=== PATIENT | female | born 1995 | race Caucasian/White ===

== ENCOUNTER → 2019-01-19 17:04 | Outpatient (CLI) | payer BC, SELFPAY | PROVIDERS: Visit Provider Nurse Practitioner Family | DX: N39.0 Urinary tract infection, site not specified (principal) | CPT/HCPCS: 87086; 87088; 87186 ==

== ENCOUNTER 2020-01-08 09:57 | Emergency (ER) | payer BC, SELFPAY ==
[2020-01-08 10:18] VITALS: BP 136/83; PULSE 97; RESP 18; TEMP 36.7; O2SAT 96; BMI 38.0
--- NOTE | 2020-01-08 11:05 | HMH.EDUTC ---
[facility] [place] Impression: Viral syndrome Disposition: Home, Self-Care Condition on Discharge: Good Instructions: DI for Nausea -- Adult, Nausea and Vomiting-Adult, DI for Fatigue Additional Instructions: ? Avoid fruit juices, as these do not replace minerals and can actually increase diarrhea. ? Children and adults can use sports drinks to replenish electrolytes. Younger children and infants should use products formulated for children, like oral rehydration solutions. ? Eat food in small amounts and let your stomach recover. ? Get lots of rest. You may feel tired or weak. ? No greasy or fried foods for the next 24-48 hours BRAT diet Bananas Rice Apples and [employer] ? Make sure to drink plenty of liquids ? Return if needed ? Straight to ER if any life threatening symptoms ? Zofran as prescribed ? Follow up with family doctor in the next 48-72 hours if no improvement or any worsening of symptoms You was tested for today for COVID19 your test result should be back later this evening, you may call back later this evening to see if your test results are back and the result You was given a handout with instructions for Self Quarantine and Self isolation for while you wait on test results and what to do if they are positive Prescriptions: Ondansetron [Zofran 4mg ODT] 4 mg PO TIDP PRN #10 tab PRN Reason: Nausea Transmission Status: Pending to [facility] Referrals: Regina Sorensen [Primary Care Provider] - As needed Forms: Work/School Release Time of Disposition: 11:11 Medical Decision Making - Freddy Inquiry Pt receiving controlled substance: No Freddy was queried for this patient: No Vital Signs: 01/08/20 10:18 Temperature 98.1 F Temperature Source Oral Pulse Rate [Radial] 97 H Respiratory Rate 18 Blood Pressure [Right Arm] 136/83 Blood Pressure Mean [Right Arm] 100 Blood Pressure Source [Right Arm] Automatic Cuff Blood Pressure Position [Right Arm] Sitting 02 Sat by Pulse Oximetry 96 Oxygen Delivery Method Room Air - Lab Data Lab results reviewed: Yes: I reviewed the patient's lab results. Orders (Tests/Meds): ORDERS Category Date Time Status Covid-19 Nasal PCR ([facility]) Routine Lab 01/08/20 10:59 [place] [facility] [place] - General Stated complaint: headache,weak Time Seen by Provider: 01/08/20 10:40 Mode of Arrival: Ambulatory Source of Information: Patient Limitations: No Limitations Description of Symptoms (Recalled from Triage Doc. by RN): threw up yesterday, has been nauseous, weak, headache, loss of appetite. 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: No Currently employed?: No Childcare worker?: No Do you have indoor plumbing?: Yes Do you have electricity?: Yes Attestation statement:: This patient has been screened for Hepatitis A risk factors. I have reviewed the patient's past
[2020-01-08 11:28] VITALS: BP 136/83; PULSE 97; RESP 18; TEMP 36.7; O2SAT 96
[2020-01-08 11:35] LABS: UTC Pregnancy Test, Urine Negative (Negative)
== END 2020-01-08 11:28 | disposition home or self-care (01) ==
PROVIDERS: Emergency Provider Nurse Practitioner; PCP Family Medicine
DX: B34.9 Viral infection, unspecified (principal); Z20.828 Contact with and (suspected) exposure to other viral communicable diseases
CPT/HCPCS: 81025; 99202; U0003

== ENCOUNTER 2020-02-12 09:27 | Emergency (ER) | payer BC, SELFPAY ==
[2020-02-12 09:43] VITALS: BP 112/87; PULSE 121; RESP 19; TEMP 37.1; O2SAT 98; BMI 37.2
--- NOTE | 2020-02-12 09:49 | HMH.EDUTC ---
[facility] [place]: Strep throat Disposition: Home, Self-Care Condition on Discharge: Good Instructions: Strep Throat, DI for Strep Throat Additional Instructions: Drink plenty of fluids. Take tylenol or ibuprofen for pain or fever. Take the medications as directed. Follow up with your regular doctor. GO TO THE ER FOR ANY WORSENING SYMPTOMS Throw your tooth brush away and get a new one. Prescriptions: Ondansetron [Zofran 4mg ODT] 4 mg PO Q8HP PRN #12 tab.rapdis PRN Reason: Nausea Transmission Status: Received by [facility] Amoxicillin/Potassium Clav [Augmentin 875-125 Tablet] 1 tab PO Q12H 10 Days #20 tab Transmission Status: Received by [facility] predniSONE [Deltasone 10mg tablet] 10 mg PO BID 3 Days #6 tab Transmission Status: Received by [facility] Referrals: Regina Sorensen [Primary Care Provider] - Forms: Work/School Release Time of Disposition: 10:00 Medical Decision Making - Medical Records Medical records reviewed: No: I reviewed the patient's medical records. - Freddy Inquiry Pt receiving controlled substance: No Vital Signs: 02/12/20 09:43 02/12/20 10:05 Temperature 98.8 F 98.8 F Temperature Source Oral Oral Pulse Rate 121 H Pulse Rate [Radial] 121 H Respiratory Rate 19 19 Blood Pressure 112/87 Blood Pressure [Right Arm] 112/87 Blood Pressure Mean [Right Arm] 95 Blood Pressure Source Automatic Cuff Blood Pressure Source [Right Arm] Automatic Cuff Blood Pressure Position Sitting Blood Pressure Position [Right Arm] Sitting 02 Sat by Pulse Oximetry 98 Oxygen Delivery Method Room Air Room Air - Lab Data Lab results reviewed: Yes: I reviewed the patient's lab results. Lab Results 02/12/20 09:43: Influenza Type A Ag Negative, Influenza Type B Ag Negative 02/12/20 09:43: Strep Scn Rapid [facility] Positive A Orders (Tests/Meds): ORDERS Category Date Time Status Covid-19 Nasal PCR Sendout Kiran Routine Lab 02/12/20 09:40 Received [facility] [place] - General Stated complaint: covid test Time Seen by Provider: 02/12/20 09:49 Mode of Arrival: Ambulatory Source of Information: Patient Limitations: No Limitations Description of Symptoms (Recalled from Triage Doc. by RN): cough, sore throat, body aches, nausea x 2 days HEENT Symptoms (Recalled from RN notes): Yes Resp Symptoms (Recalled from RN notes): No Skin Symptoms (Recalled from RN notes): No MS Symptoms (Recalled from RN notes): No Functional Status (Recalled from RN notes): wnl - History of Present Illness Provider Complaint: She c/o sore throat and fever since yesterday. She denies cough and chest congestion. - Related Data Previous Rx's Medication Instructions Recorded Amoxicillin [Amoxicillin 500mg 500 mg PO TID #30 cap 06/06/19 Cap] Ondansetron [Zofran 4mg ODT] 4 mg PO TIDP PRN #10 tab 01/08/20 Amoxicillin/Potassium Clav 1 tab PO Q12H 10 Days #20 tab 02/12/20 [Augmentin 875-125 Tablet] Ondansetron [Zofran 4mg ODT] 4 mg PO Q8HP PRN #12 tab.rapdis 02/12/20 predniSONE [Deltasone 10mg tablet] 10 mg PO BID 3 Days #6 tab 02/12/20 Allergies Allergy/AdvReac Type Severity Reaction Status Date / Time No Known Allergies Allergy Verified 01/23/19 23:05 - Worker's Comp Is this a Worker's Comp case?: No [facility] History - Hepatitis A Screen Drug use history?: No High risk sexual behaviors?: No History of sexually transmitted infection?: No Currently employed?: No Childcare worker?: No Do you have indoor plumbing?: Yes Do you have electricity?: Yes Attestation statement:: This patient has been screened for Hepatitis A risk factors. I have reviewed the patient's past medical history: Yes Medical History: Denies:: Diabetes Mellitus Type 1, Diabetes Mellitus Type 2 Other Medical History: Reports: Other Other Surgeries: Yes: No Previous Surgery Amputation: No Comment: wisdom teeth extraction.
[2020-02-12 09:54] LABS: UTC Strep Screen (Rapid) Positive (Negative)
[2020-02-12 09:55] LABS: UTC Influenza A Antigen Negative (Negative); UTC Influenza B Antigen Negative (Negative)
[2020-02-12 10:05] VITALS: BP 112/87; PULSE 121; RESP 19; TEMP 37.1; O2SAT 98
[2020-02-12 21:25] LABS: Covid-19 Nasal PCR Sendout Lex Not Detected
== END 2020-02-12 10:06 | disposition home or self-care (01) ==
PROVIDERS: Emergency Provider Nurse Practitioner Family; PCP Family Medicine
DX: Z20.828 Contact with and (suspected) exposure to other viral communicable diseases (principal); J02.0 Streptococcal pharyngitis
CPT/HCPCS: 87804; 87880; 99202; U0004

== ENCOUNTER 2020-10-22 12:53 | Emergency (ER) | payer BC, SELFPAY ==
[2020-10-22 12:55] VITALS: BP 136/79; PULSE 112; RESP 20; TEMP 37.1; O2SAT 97; BMI 39.1
--- NOTE | 2020-10-22 13:41 | HMH.EDUTC ---
[facility] [place] Clinical Impression: Viral syndrome Disposition: Home, Self-Care Condition on Discharge: Good Instructions: DI for Viral Syndrome Additional Instructions: Drink plenty of fluids. Take tylenol for pain or fever. Return if you begin to have difficulty breathing. Follow up with your regular doctor. GO TO THE ER FOR ANY WORSENING SYMPTOMS Prescriptions: Ondansetron [Zofran 4mg ODT] 4 mg PO Q8HP PRN #12 tab.rapdis PRN Reason: Nausea Transmission Status: Received by [facility] Referrals: Regina Sorensen [Primary Care Provider] - Forms: Work/School Release Time of Disposition: 13:56 Medical Decision Making - Medical Records Medical records reviewed: No: I reviewed the patient's medical records. - Freddy Inquiry Pt receiving controlled substance: No Vital Signs: 10/22/20 12:55 10/22/20 13:54 Temperature 98.7 F 98.7 F Temperature Source Oral Pulse Rate 112 H Pulse Rate [Right Brachial] 112 H Respiratory Rate 20 20 Blood Pressure 136/79 Blood Pressure [Right Arm] 136/79 Blood Pressure Mean [Right Arm] 98 Blood Pressure Source [Right Arm] Automatic Cuff Blood Pressure Position [Right Arm] Sitting 02 Sat by Pulse Oximetry 97 Oxygen Delivery Method Room Air - Lab Data Lab Results 10/22/20 13:49: Strep Scn Rapid Clinic Negative Orders (Tests/Meds): ORDERS Category Date Time Status Strep Screen Confirmation Stat Micro 10/22/20 13:49 Received [facility] [place] - General Stated complaint: covid test Time Seen by Provider: 10/22/20 13:41 Mode of Arrival: Ambulatory Source of Information: Patient Limitations: No Limitations Description of Symptoms (Recalled from Triage Doc. by RN): PATIENT C/O COUGH, HEADACHE, AND NASAL CONGESTION THAT STARTED TODAY. HER SISTER RECENTLY TESTED POSITIVE FOR COVID HEENT Symptoms (Recalled from RN notes): Yes Resp Symptoms (Recalled from RN notes): Yes Skin Symptoms (Recalled from RN notes): No MS Symptoms (Recalled from RN notes): No Functional Status (Recalled from RN notes): WNL - History of Present Illness Provider Complaint: She states that since this morning she has felt bad,started having sinus congestion and felt achy all over. Her sister was diagnosed with covid-19 yeaterday and she has been around her sister a lot recently. - Related Data Previous Rx's Medication Instructions Recorded Ondansetron [Zofran 4mg ODT] 4 mg PO Q8HP PRN #12 tab.rapdis 10/22/20 Allergies Allergy/AdvReac Type Severity Reaction Status Date / Time No Known Allergies Allergy Verified 01/23/19 23:05 - Worker's Comp Is this a Worker's Comp case?: No [facility] History - Hepatitis A Screen Drug use history?: No High risk sexual behaviors?: No History of sexually transmitted infection?: No Currently employed?: No Childcare worker?: No Do you have indoor plumbing?: Yes Do you have electricity?: Yes Attestation statement:: This patient has been screened for Hepatitis A risk factors. I have reviewed the patient's past medical history: Yes Medical History: Denies:: Diabetes Mellitus Type 1, Diabetes Mellitus Type 2 Other Medical History: Reports: Other Other Surgeries: Yes: No Previous Surgery Amputation: No Comment: wisdom teeth extraction. IUD placed 10/2017 - Social History Smoking Status: Never smoker Alcohol Intake: never Alcohol Intake Frequency:: holidays/special occasions only Substance Use Type: denies use Occupational Status: other Housing: house Household Members: spouse ROS Obtained: Yes All systems reviewed & no additional complaints - Constitutional Constitutional: Reports system reviewed and no additional complaints, except as docu - Eyes Eyes: Reports system reviewed and no additional complaints, except as docu - ENT Ears, Nose, Mouth, and Throat: Reports system reviewed and no additional complaints, except as docu - Cardiovascular Cardiovascular: Reports system amber
[2020-10-22 13:54] VITALS: BP 136/79; PULSE 112; RESP 20; TEMP 37.1; O2SAT 97
[2020-10-22 14:00] LABS: UTC Strep Screen (Rapid) Negative (Negative)
== END 2020-10-22 14:08 | disposition home or self-care (01) ==
PROVIDERS: Emergency Provider Nurse Practitioner Family; PCP Family Medicine
DX: Z20.822 Contact with and (suspected) exposure to COVID-19 (principal); B34.9 Viral infection, unspecified
CPT/HCPCS: 87880; 99203; G0463; U0003

== ENCOUNTER → 2021-02-23 12:11 | Outpatient (CLI) | payer BC, SELFPAY | PROVIDERS: PCP Family Medicine; Visit Provider Nurse Practitioner | DX: U07.1 COVID-19 (principal) | CPT/HCPCS: C9803; U0003; U0005 ==

== ENCOUNTER 2021-03-15 09:15 | Emergency (ER) | payer BC, SELFPAY ==
[2021-03-15 10:10] VITALS: BP 118/66; PULSE 115; RESP 21; TEMP 37.7; O2SAT 97; BMI 39.9
--- NOTE | 2021-03-15 10:33 | HMH.EDUTC ---
[facility] [place] Impression: URI (upper respiratory infection) Qualifiers: URI type: unspecified URI Qualified Code(s): J06.9 - Acute upper respiratory infection, unspecified Disposition: Home, Self-Care Condition on Discharge: Good Instructions: Sore Throat, DI for Sinusitis, DI for Cough -- Adult Additional Instructions: *Monitor Temp, Over the counter Motrin or Tylenol as directed/as needed Tylenol every 4 hours and Motrin every 6 hours (as long as your family doctor has told you that you can take it) for fever or pain. and straight to ER if unable to lower temp less than 101.0 after medication given *Warm salt water gargles may help to soothe the throat *Throat Lozenges *Warm fluids like tea with honey may help to soothe the throat *Sleep elevated *Humidifier/Vaporizer *Flonase 2 sprays in each nostril daily but be aware that it may take 2-3 days before you notice improvement *Bromfed may cause drowsiness. Know how it effects you (your child) before driving, caring for small child, or sending your child to school. Not other antihistamines/allergy medications while taking bromfed Your throat swab was sent for culture. Those results are typically sent to your primary care. Be sure to follow up in 2-3 days with your family doctor/primary care physician if no improvement so they can review those result and treat if necessary. If you don?t have a primary care doctor, I recommend you get one but in the mean time, you will have to return to a walk in clinic Follow up IMMEDIATELY for new or worsening symptoms or no Noticeable improvement over the next 48-72 hours. 911 for difficulty breathing or swallowing Prescriptions: Brompheniramine/Pseudoephed/Dm [Bromfed Dm Cough Syrup] 5 - 10 ml PO Q46H PRN #200 ml PRN Reason: Cough Transmission Status: Pending to [facility] methylPREDNISolone [Medrol 4mg tab] 4 mg PO DIRECTED #21 tab Transmission Status: Pending to [facility] Azithromycin [Z-Casey 250mg Tab] 250 mg PO DIRECTED #6 tab Transmission Status: Pending to [facility] Referrals: Regina Sorensen [Primary Care Provider] - As needed Forms: Work/School Release Medical Decision Making - Freddy Inquiry Pt receiving controlled substance: No Freddy was queried for this patient: No Vital Signs: 03/15/21 10:10 Temperature 99.8 F H Temperature Source Oral Pulse Rate [Right Brachial] 115 H Respiratory Rate 21 Blood Pressure [Right Arm] 118/66 Blood Pressure Mean [Right Arm] 83 Blood Pressure Source [Right Arm] Automatic Cuff Blood Pressure Position [Right Arm] Sitting 02 Sat by Pulse Oximetry 97 Oxygen Delivery Method Room Air - Lab Data Lab results reviewed: Yes: I reviewed the patient's lab results. Lab Results 03/15/21 10:32: Influenza Type A Ag Negative, Influenza Type B Ag Negative 03/15/21 10:32: Strep Scn Rapid Clinic Negative Orders (Tests/Meds): ORDERS Category Date Time Status Strep Screen Confirmation Stat Micro 03/15/21 10:32 [place] [facility] [place] - General Stated complaint: possible strep Time Seen by Provider: 03/15/21 10:33 Mode of Arrival: Ambulatory Source of Information: Patient Limitations: No Limitations Description of Symptoms (Recalled from Triage Doc. by RN): PATIENT C/O SORE THROAT, FEVER, CHILLS, HEADACHE, COUGH, SNEEZING AND CONGESTION X 2 DAYS HEENT Symptoms (Recalled from RN notes): Yes Resp Symptoms (Recalled from RN notes): Yes Skin Symptoms (Recalled from RN notes): No MS Symptoms (Recalled from RN notes): No Functional Status (Recalled from RN notes): WNL - History of Present Illness Provider Complaint: Patient states that she has been having sore throat, cough, Sinus pain and pressure with drianage in the back of her throat and pressure behind her eyes with fever and chills States that she had COVID in the begining of the month and thinks she may have strep throat or sinus infection so she wanted
[2021-03-15 10:48] LABS: UTC Influenza A Antigen Negative (Negative); UTC Strep Screen (Rapid) Negative (Negative)
[2021-03-15 10:49] LABS: UTC Influenza B Antigen Negative (Negative)
[2021-03-15 10:55] LABS: UTC Pregnancy Test, Urine Negative (Negative)
[2021-03-15 11:00] VITALS: BP 118/66; PULSE 115; RESP 21; TEMP 37.7; O2SAT 97
== END 2021-03-15 11:04 | disposition home or self-care (01) ==
PROVIDERS: Emergency Provider Nurse Practitioner; PCP Family Medicine
DX: J06.9 Acute upper respiratory infection, unspecified (principal)
CPT/HCPCS: 81025; 87804; 87880; 99203; G0463

== ENCOUNTER 2022-01-31 08:40 | Emergency (ER) | payer BC, SELFPAY ==
[2022-01-31 10:43] VITALS: BP 158/93; PULSE 94; RESP 18; TEMP 36.9; O2SAT 98; BMI 40.7
--- NOTE | 2022-01-31 10:56 | EXP.UTC ---
Discharge Plan Disposition Patient Disposition: Left Against Medical Advice Condition: Good Prescriptions Prescriptions: No Action azithromycin 250 MG tablet 250 mg PO DIRECTED Qty: 6 0RF Rx Instructions: Take two (2) tablets on day #1, then one (1) tablet day #2 thru #5 methylprednisolone 4 MG tablet 4 mg PO DIRECTED Qty: 21 0RF Rx Instructions: Take as directed on package instructions dagztpudwvziurq-rnmppogxx-YO 118 ML syrup 5 - 10 ml PO Q46H PRN (Reason: Cough) Qty: 200 0RF Referrals Follow up/Referrals: Provider,Referral, MD [Primary Care Provider] - See instructions Activity Restrictions/Add. Instructions Additional Instructions/Restrictions: Make sure to go straight to [facility] as you advised you would in the [facility] for further evaluation Return if needed Clinical Impressions Clinical Impression: Chest discomfort Discharge ED Provider: Lucía Joyce [facility] [place] HPI General Stated complaint: Congestion,Cough Mode of Arrival: Ambulatory Source of Information: Patient Limitations: No Limitations Time Seen by Provider: 01/31/22 10:56 Description of Symptoms (Recalled from Triage Doc. by RN): pt comes in with c/o cough, pain with coughing. HEENT Symptoms (Recalled from RN notes): Yes Resp Symptoms (Recalled from RN notes): Yes Skin Symptoms (Recalled from RN notes): No MS Symptoms (Recalled from RN notes): No Functional Status (Recalled from RN notes): n/a History of Present Illness Provider Complaint: Patient states that she has been sick for over a week State that she has had a cough and at times she has had pain in her chest area with cough States that last night she started having tight feeling in left side of her chest States that pain is consistent but still having sharp worsening of pain with cough or deep breath but pain in her chest area remains constant Denies feeling of palpatations Denies worsening of pain with movement Related Data Previous Rx's Medication Instructions Recorded azithromycin 250 mg tablet 250 mg PO DIRECTED #6 tabs 03/15/21 spmjhwmdzctpngx-nrpulplohsqfbmu-UC 5 - 10 ml PO Q46H PRN Cough #200 mL 03/15/21 2 mg-30 mg-10 mg/5 mL oral syrup methylprednisolone 4 mg tablet 4 mg PO DIRECTED #21 tabs 03/15/21 Allergies Allergy/AdvReac Type Severity Reaction Status Date / Time No Known Allergies Allergy Verified 01/31/22 10:49 Worker's Comp Is this a Worker's Comp case?: No PFSH PFSH Social History Smoking Status: Never smoker alcohol intake: current substance use type: denies use current occupational status: other Travel in the last 8 weeks: None household members: spouse housing: house ROS Obtained: Yes All systems reviewed & no additional complaints except as documented and Yes Systems reviewed as appropriate & no additional complaints except as documented Constitutional Constitutional: Reports system reviewed and no additional complaints, except as documented and Reports as per HPI Eyes Eyes: Reports system reviewed and no additional complaints, except as documented and Reports as per HPI ENT Ears, Nose, Mouth, and Throat: Reports system reviewed and no additional complaints, except as documented and Reports as per HPI Cardiovascular Cardiovascular: Reports system reviewed and no additional complaints, except as documented, Reports as per HPI and Reports chest pain (reports consistent tightness like pain in chest sharp pain with cough ) Respiratory Respiratory: Reports system reviewed and no additional complaints, except as documented, Reports as per HPI, Denies shortness of breath, Denies chest congestion, Reports cough, Reports pain on inspiration (sharp pain different from achy/tight pain she is having in chest) and Reports pain with cough (sharp with cough Different then achy like pain she is having in chest) Gastrointestinal Gastrointestingal: Reports system reviewed an
[2022-01-31 10:58] LABS: UTC Influenza A Antigen Negative (Negative)
[2022-01-31 10:59] LABS: UTC Influenza B Antigen Negative (Negative)
--- NOTE | 2022-01-31 11:24 | ECG_ITS ---
APPROVED REPORT Exam: Resting ECG HR:87 bpm ECG Measurements Heart Rate 87 AXES SC 145 P 66 QRSd 81 QRS 66 QT 352 T 14 QTc 396 Conclusion SINUS RHYTHM NONSPECIFIC T-WAVE ABNORMALITY BORDERLINE ECG INTERPRETATION BASED ON A DEFAULT AGE OF 39 YEARS UNCONFIRMED REPORT Electronically signed by : Edouard Gan MD 01/31/2022 21:10:10
[2022-01-31 11:39] VITALS: BP 158/93; PULSE 94; RESP 18; TEMP 36.9
== END 2022-01-31 11:40 | disposition left against medical advice (07) ==
PROVIDERS: Emergency Provider Nurse Practitioner
DX: R07.89 Other chest pain (principal); R05.9 Cough, unspecified; Z79.52 Long term (current) use of systemic steroids
CPT/HCPCS: 87804; 93005; 99213; G0463

== ENCOUNTER 2022-06-16 10:34 | Emergency (ER) | payer BC, SELFPAY ==
[2022-06-16 10:53] VITALS: BP 143/84; PULSE 84; RESP 16; TEMP 37.5; O2SAT 98; BMI 41.1
[2022-06-16 10:54] LABS: UTC Strep Screen (Rapid) Negative (Negative)
--- NOTE | 2022-06-16 10:54 | EXP.UTC ---
Discharge Plan Disposition Patient Disposition: Home, Self-Care Condition: Good Prescriptions Prescriptions: New amoxicillin [amoxicillin] 500 mg tablet 500 mg PO TID 10 Days Qty: 30 0RF methylprednisolone 4 mg Tablets,Dose Pack 4 mg PO DIRECTED Qty: 21 0RF mgcwjfmzocounwa-exqupizgx-YE [Bromfed DM] 2-30-10 mg/5 mL Syrup 5 ml PO Q6H PRN (Reason: Cough) Qty: 240 0RF No Action azithromycin 250 MG tablet 250 mg PO DIRECTED Qty: 6 0RF Rx Instructions: Take two (2) tablets on day #1, then one (1) tablet day #2 thru #5 methylprednisolone 4 MG tablet 4 mg PO DIRECTED Qty: 21 0RF Rx Instructions: Take as directed on package instructions rxozqpdujaoieak-rkfsczxft-FA 118 ML syrup 5 - 10 ml PO Q46H PRN (Reason: Cough) Qty: 200 0RF Referrals Follow up/Referrals: Regina Sorensen [Primary Care Provider] - See instructions Activity Restrictions/Add. Instructions Additional Instructions/Restrictions: Drink plenty of fluids. Take tylenol or ibuprofen for pain or fever. Take the medications as directed. Follow up with your regular doctor. GO TO THE ER FOR ANY WORSENING SYMPTOMS Throw your tooth brush away and get a new one. Clinical Impressions Clinical Impression: Strep throat Stand Alone Forms Stand Alone Forms: Work/School Release Instructions Patient Instructions: Strep Throat, DI for Strep Throat Discharge ED Provider: Darien Arriola [facility] General Stated complaint: Sore throat Time Seen by Provider: 06/16/22 10:54 History of Present Illness Provider Complaint: She states that for the past 2 days she has had worsening sore throat, chills and body aches. Related Data Previous Rx's Medication Instructions Recorded azithromycin 250 mg tablet 250 mg PO DIRECTED #6 tabs 03/15/21 ffmjvmcualrqlot-shmnbzchumrmwsr-XP 5 - 10 ml PO Q46H PRN Cough #200 mL 03/15/21 2 mg-30 mg-10 mg/5 mL oral syrup methylprednisolone 4 mg tablet 4 mg PO DIRECTED #21 tabs 03/15/21 amoxicillin 500 mg tablet 500 mg PO TID 10 days #30 tabs 06/16/22 lylieleqguwnsuz-gavmonrkggcnjnf-HD 5 ml PO Q6H PRN Cough #240 mL 06/16/22 2 mg-30 mg-10 mg/5 mL oral syrup (Bromfed DM) methylprednisolone 4 mg tablets in 4 mg PO DIRECTED #21 tabs 06/16/22 a dose pack Allergies Allergy/AdvReac Type Severity Reaction Status Date / Time No Known Allergies Allergy Verified 06/16/22 10:56 PFSH [facility] Disclaimer: The information contained in this section may have been updated after the patient was seen, as this information can be updated by other users. Social History Smoking Status: Never smoker alcohol intake: current substance use type: denies use current occupational status: other Travel in the last 8 weeks: None household members: spouse housing: house ROS Obtained: Yes All systems reviewed & no additional complaints except as documented Constitutional Constitutional: Reports chills and Reports fever(s) Eyes Eyes: Denies eye discharge ENT Ears, Nose, Mouth, and Throat: Reports as per HPI Cardiovascular Cardiovascular: Denies chest pain Respiratory Respiratory: Denies chest congestion and Reports cough Gastrointestinal Gastrointestingal: Reports nausea; Denies abdominal pain, constipation, cramping, diarrhea or vomiting Musculoskeletal Musculoskeletal: Denies arthralgias Integumentary/Breasts Skin/Breast: Denies rash Neurologic Neurologic: Denies paresthesias Physical Exam General General appearance: alert and in no apparent distress Head Head exam: atraumatic, normocephalic and normal inspection Eye Eye exam: Present normal appearance, PERRL and EOMI ENT ENT exam: Present mucous membranes moist and normal external ear exam Expanded ENT Exam TM/Canal exam: Bilateral TM: erythema and bulging Nose exam: Absent sinus tenderness Mouth exam: Present normal external inspection; Absent drool
[2022-06-16 11:41] VITALS: BP 143/84; PULSE 84; RESP 16; TEMP 37.5
== END 2022-06-16 11:45 | disposition home or self-care (01) ==
PROVIDERS: Emergency Provider Nurse Practitioner Family; PCP Family Medicine
DX: J02.0 Streptococcal pharyngitis (principal)
CPT/HCPCS: 87880; 99212; 99214; G0463

== ENCOUNTER 2023-04-11 23:53 | Emergency (ER) | payer BC, SELFPAY ==
[2023-04-11 23:55] VITALS: BP 150/88; PULSE 116; RESP 20; TEMP 36.8; O2SAT 99; BMI 38.2
[2023-04-12] VITALS: BP 150/88; PULSE 117; O2SAT 98
--- NOTE | 2023-04-12 00:09 | CT_ITS ---
PROCEDURE INFORMATION: Exam: CT Abdomen And Pelvis With Contrast Exam date and time: 04/12/2023 12:35 AM Age: 28 years old Clinical indication: Abdominal pain; Additional info: Ruq pain TECHNIQUE: Imaging protocol: Computed tomography of the abdomen and pelvis with contrast. Radiation optimization: All CT scans at this facility use at least one of these dose optimization techniques: automated exposure control; mA and/or kV adjustment per patient size (includes targeted exams where dose is matched to clinical indication); or iterative reconstruction. Contrast material: ISOVUE; Contrast volume: 75 ml; Contrast route: IV; COMPARISON: CT ABDOMEN PELVIS WO CON 01/23/2019 11:39 PM FINDINGS: Liver: Normal. No mass. Gallbladder and bile ducts: Normal. No calcified stones. No ductal dilation. Pancreas: Normal. No ductal dilation. Spleen: Normal. No splenomegaly. Adrenal glands: Normal. No mass. Kidneys and ureters: Normal. No hydronephrosis. Stomach and bowel: Unremarkable. No obstruction. No mucosal thickening. Appendix: No evidence of appendicitis. Intraperitoneal space: Unremarkable. No free air. No significant fluid collection. Vasculature: Unremarkable. No abdominal aortic aneurysm. Lymph nodes: Unremarkable. No enlarged lymph nodes. Urinary bladder: Unremarkable as visualized. Reproductive: Unremarkable as visualized. Bones/joints: Unremarkable. No acute fracture. Soft tissues: Unremarkable. IMPRESSION: No acute findings.
--- NOTE | 2023-04-12 00:10 | ED_ITS ---
Discharge Plan Disposition Patient Disposition: Home, Self-Care Prescriptions Prescriptions: New ondansetron HCl 4 mg tablet 4 mg PO Q8H PRN (Reason: nausea and vomiting) 5 Days Qty: 30 0RF No Action azithromycin 250 MG tablet 250 mg PO DIRECTED Qty: 6 0RF Rx Instructions: Take two (2) tablets on day #1, then one (1) tablet day #2 thru #5 methylprednisolone 4 MG tablet 4 mg PO DIRECTED Qty: 21 0RF Rx Instructions: Take as directed on package instructions tyrmxmemwwzgixd-iwhodakdg-RV 118 ML syrup 5 - 10 ml PO Q46H PRN (Reason: Cough) Qty: 200 0RF amoxicillin [amoxicillin] 500 mg tablet 500 mg PO TID 10 Days Qty: 30 0RF methylprednisolone 4 mg Tablets,Dose Pack 4 mg PO DIRECTED Qty: 21 0RF ilhzzyfkfrzulqa-mexogqdvi-EB [Bromfed DM] 2-30-10 mg/5 mL Syrup 5 ml PO Q6H PRN (Reason: Cough) Qty: 240 0RF Referrals Follow up/Referrals: Matthew Lake MD [Primary Care Provider] - See instructions Rosas Smith MD [Staff Physician] - See instructions (recurrent post RUQ pain) Activity Restrictions/Add. Instructions Additional Instructions/Restrictions: Please follow-up with your primary care provider. Recommend following up with general surgery. Please take Zofran as needed for nausea and vomiting. If you develop severe or persistent pain not responsive to tylenol and ibuprofen or if you develop fever, recommend returning to the ER for further assessment. Clinical Impressions Clinical Impression: Abdominal pain, acute, right upper quadrant, Abnormal serum lipase level Instructions Patient Instructions: DI for Acute Abdominal Pain Discharge ED Provider: Satya Yarbrough General Adult HPI General Chief complaint: Abdominal Pain Stated complaint: pain in right side abdomen Time Seen by Provider: 04/12/23 00:04 Mode of Arrival: Ambulatory Limitations: No Limitations Description of Symptoms (Recalled from ER Triage Doc. by RN): Patient has a Hx of gallstones and having abd, N/V since 8 pm tonight. Amena had a baby 03/11. History of Present Illness HPI narrative: 28-year-old female, recently delivered a baby about a month ago, history of gallstones and symptomatic cholelithiasis during , presents with acute onset right upper quadrant pain since 8 PM tonight. She reports it is more severe and persistent than prior episodes. She reports that these episodes have happened frequently during . She denies any recent fever or illness. She reports vomiting at home. She denies any history of abdominal surgery. Patient reports that she ate [place] later today. Related Data Previous Rx's Medication Instructions Recorded azithromycin 250 mg tablet 250 mg PO DIRECTED #6 tabs 03/15/21 msfmvisbjerdihx-wnplgkhnzzbpbaa-BF 5 - 10 ml PO Q46H PRN Cough #200 mL 03/15/21 2 mg-30 mg-10 mg/5 mL oral syrup methylprednisolone 4 mg tablet 4 mg PO DIRECTED #21 tabs 03/15/21 amoxicillin 500 mg tablet 500 mg PO TID 10 days #30 tabs 06/16/22 gchritnamamnwta-stnqbueteygiycy-XJ 5 ml PO Q6H PRN Cough #240 mL 06/16/22 2 mg-30 mg-10 mg/5 mL oral syrup (Bromfed DM) methylprednisolone 4 mg tablets in 4 mg PO DIRECTED #21 tabs 06/16/22 a dose pack ondansetron HCl 4 mg tablet 4 mg PO Q8H PRN nausea and 04/12/23 vomiting 5 days #30 tabs Allergies Allergy/AdvReac Type Severity Reaction Status Date / Time No Known Allergies Allergy Verified 06/16/22 10:56 [facility] Disclaimer: The information contained in this section may have been updated after the patient was seen, as this information can be updated by other users. Social History Smoking Status: Current every day smoker alcohol intake: current substance use type: denies use current occupational status: other Travel in the last 8 weeks: None household members: spouse housing: house ROS Obtained: Yes All systems reviewed & no additional complaints except as documented Physical Exam General General appearance: alert and in no apparent distress Head Head exam: atraumatic and normocephalic Eye Eye exam: Present normal appearance, PERRL and EOMI ENT ENT exam: Present normal oropharynx and normal external ear exam Neck Neck exam: Present normal inspection and full ROM Chest Chest inspection: Present normal inspection and symmetric chest wall rise; Absent tenderness Respiratory Respiratory exam: Present normal lung sounds bilaterally; Absent respiratory distress Cardiovascular Cardiovascular exam: Present regular rate and normal rhythm Abdominal Exam Abdominal exam: Present soft and tenderness (Moderate to severe right upper quadrant); Absent distention or guarding Extremities Exam Extremities exam: Present normal inspection; Absent edema or joint swelling Back Exam Back exam: Present normal inspection; Absent tenderness Neurological Exam Neurological exam: Present alert and oriented X3; Absent motor sensory deficit Psychiatric Psychiatric exam: Present normal affect and normal mood Skin Skin exam: Present warm, dry and normal color Lymphatic Lymphatic Findings: no adenopathy Medical Decision Making Medical Records Medical records reviewed: Yes I reviewed the patient's medical records. Freddy Inquiry Pt receiving controlled substance: No Freddy was queried for this patient: No Vital Signs: 04/11/23 23:55 04/12/23 00:00 04/12/23 01:07 Temperature 98.2 F 98.4 F Temperature Source Oral Oral Pulse Rate 117 H 74 Pulse Rate [Radial] 116 H Respiratory Rate 20 16 Blood Pressure 150/88 H 114/55 L Blood Pressure [Right Arm] 150/88 H Blood Pressure Mean [Right Arm] 108 Blood Pressure Source Automatic Cuff Blood Pressure Source [Right Arm] Automatic Cuff Blood Pressure Position Sitting Blood Pressure Position [Right Arm] Sitting 02 Sat by Pulse Oximetry 99 98 Oxygen Delivery Method Room Air Room Air Room Air Lab Data Lab results reviewed: Yes I reviewed the patient's lab results. Lab Results 04/12/23 00:00: Urine Color Yellow, Urine Appearance Clear, Urine pH 6.5, Ur Specific Bart[place] 1.025, Urine Protein Negative, Urine Glucose (UA) Negative, Urine Ketones Negative, Urine Blood Negative, Urine Nitrate Negative, Urine Bilirubin 1+ A, Urine Urobilinogen 2.0, Ur Leukocyte Esterase Negative, Urine RBC None, Urine WBC Occasional, Ur Squamous Epith Cells 10-20, Urine Bacteria Trace 04/12/23 00:07: WBC 11.8 H, RBC 3.92 L, Hgb 13.0, Hct 36.1 L, MCV 92.0, MCH 33.3 H, MCHC 36.2 H, RDW 13.5, Plt Count 329, MPV 7.6, Neut % (Auto) 80.5 H, Lymph % (Auto) 12.0, [place] % (Auto) 5.4, Eos % (Auto) 1.7, Baso % (Auto) 0.4, Neut # (Auto) 9.5 H, Lymph # (Auto) 1.4, [place] # (Auto) 0.6, Eos # (Auto) 0.2, Baso # (Auto) 0.1, Sodium 141, Potassium 4.0, Chloride 103, Carbon Dioxide 31 H, Anion Gap 11.0, BUN 18 H, Creatinine 0.80, Estimated Creat Clear 181, Estimated GFR 85, Est GFR ( Amer) 103, Glucose 104 H, Calcium 9.1, Total Bilirubin 0.7, AST 118 H, ALT 73, Alkaline Phosphatase 122, Total Protein 7.7, Albumin 4.3, Globulin 3.4 H, Albumin/Globulin Ratio 1.3, Lipase 477 H 04/12/23 00:07 04/12/23 00:07 Orders (Tests/Meds): ED MEDICATIONS Generic Name Dose Route Start Last Admin Trade Name Freq PRN Reason Stop Dose Admin Lactated Ringer's 1,000 mls @ 999 mls/hr 04/12/23 00:15 04/12/23 00:15 Lactated Ringer's 1000 Ml Bag IV 04/12/23 01:15 999 mls/hr .Q1H1M GILBERT Administration Sodium Chloride 10 ml 04/12/23 00:41 04/12/23 00:41 Sodium Chloride 0.9% 10ml Syr (Rad Only) IV 05/12/23 00:40 10 ml NEEDED PRN Administration Maintain IV Site Discontinued Medications Generic Name Dose Route Start Last Admin Trade Name Freq PRN Reason Stop Dose Admin Acetaminophen 1,000 mg 04/12/23 00:09 04/12/23 00:14 Acetaminophen 500mg Tab PO 04/12/23 00:10 1,000 mg ONCE ONE Administration Iopamidol 75 ml 04/12/23 00:41 04/12/23 00:41 Iopamidol-370 (76%);100ml Bottle IV 04/12/23 00:42 75 ml ONCE ONE Administration Ketorolac Tromethamine 30 mg 04/12/23 00:09 04/12/23 00:15 Ketorolac 30mg/Ml Vial IV 04/12/23 00:10 30 mg ONCE ONE Administration Morphine Sulfate 4 mg 04/12/23 00:09 04/12/23 00:16 Morphine 4mg/Ml Syringe IV 04/12/23 00:10 4 mg ONCE ONE Administration Ondansetron HCl 4 mg 04/12/23 00:09 04/12/23 00:14 Ondansetron 4mg/2ml Vial IV 04/12/23 00:10 4 mg ONCE ONE Administration ORDERS Category Date Time Status CT abdomen pelvis w con Stat Cat Scan 04/12/23 00:09 Completed CBC w/Auto Diff [Complete Blood Count Auto Diff] Stat Lab 04/12/23 00:07 Completed CMP [Comprehensive Metabolic Panel] Stat Lab 04/12/23 00:07 Completed Lipase Stat Lab 04/12/23 00:07 Completed UA [Urinalysis and Microscopic] Stat Lab 04/12/23 00:00 Completed Medical Decision Narrative: 28-year-old female, delivered baby 1 month ago, history of symptomatic cholelithiasis in , presents with acute and persistent severe right upper quadrant pain. History was obtained via conversation with the patient, ch art review. On arrival, patient is [afebrile, hemodynamically stable, satting appropriately, alert, oriented x4, GCS 15], moving all extremities spontaneously. Full physical exam performed and significant for moderate cerebral quadrant tenderness Differential includes but is not limited to cholelithiasis, cholecystitis, choledocholithiasis, gastritis, gastroenteritis, UTI, renal lithiasis. Patient was given 1 g p.o. Tylenol, 30 mg IV toradol, 4 mg IV morphine, 4 mg IV Zofran, 1 L fluid bolus for symptomatic management and correction of underlying abnormalities. Workup initiated including CBC CMP lipase UA CT Abdo pelvis with IV contrast. On re-evaluation, patient [remains afebrile, HD stable.] Reports that her symptoms have gone away after medication interventions. Laboratory workup independently interpreted by me and significant for mild leukocytosis of 11.8, lipase of 477, AST 118, bilirubin and alk phos normal. Imaging independently interpreted by me and significant for normal gallbladder without evidence of wall thickening or pericholecystic fluid, no gallstones noted. Pancreas normal in appearance. Bowels unremarkable.. See radiology read for full review of final results. Given patient history, exam and workup, patient's presentation most likely represents gallbladder related pain. No evidence of gallstones on CT, no evidence of biliary ductal dilatation, bilirubin normal. These findings are all reassuring. The mildly elevated lipase and AST are concerning, but not markedly elevated. No history of epigastric pain radiating to the back, no CT evidence o f pancreatic inflammation. I had extensive discussion with patient regarding her symptoms. No evidence of admittable disease process or surgical pathology at this time. I gave her strict return precautions for the development of fever or worsening/persistent symptoms as these could be a sign of cholangitis or other serious pathology. Care complicated by social determinants of health including []. Procedures Risk/Benefits of Procedure(s) Were Explained: Yes Critical Care Critical Care Time Critical Care Time: No
[2023-04-12] MEDS: ACETAMINOPHEN 500MG TAB 1000 MG PO (00:14)
[2023-04-12] MEDS: ONDANSETRON 4MG/2ML VIAL 4 MG IV (00:14)
[2023-04-12] MEDS: LACTATED RINGERS 1000ML 1,000 ML 999 ML IV (00:15)
[2023-04-12] MEDS: KETOROLAC 30MG/ML VIAL 30 MG IV (00:15)
[2023-04-12] MEDS: MORPHINE 4MG/ML SYRINGE 4 MG IV (00:16)
[2023-04-12 00:17] LABS: Basophils # 0.1 K/mm3 (0-0.2); Basophils % 0.4 % (0.1-2.0); Eosinophils # 0.2 K/mm3 (0.0-0.4); Eosinophils % 1.7 % (0.1-12.0); Hematocrit 36.1 % (37.0-47.0); Lymphocytes # 1.4 K/mm3 (0.7-4.5); Mean Corpuscular HGB Conc 36.2 g/dL (31.8-35.4); Mean Corpuscular Hemoglobin 33.3 pg (27.0-31.2); Mean Platelet Volume 7.6 fl (7.4-10.4); Monocytes # 0.6 K/mm3 (0.1-1.0); Monocytes % 5.4 % (1.7-9.3); Neutrophils # 9.5 K/mm3 (1.8-7.8); Neutrophils % 80.5 % (37.0-80.0); Platelet Count 329 K/mm3 (142-424); Red Blood Count 3.92 M/mm3 (4.20-5.40); Red Cell Distribution Width 13.5 % (11.5-17.5); White Blood Count 11.8 K/mm3 (4.8-10.8)
[2023-04-12 00:17] LABS: Microscopic, Urine URINE MICROSCOPIC (MICROSCOPIC)
[2023-04-12 00:19] LABS: Appearance,Urine CLEAR (Clear); Blood, Urine Negative (Negative); Color,Urine YELLOW (Yellow); Glucose,Urine (UA) Negative (Negative); Ketones,Urine Negative (Negative); Leukocyte Esterase,Urine Negative (Negative); Nitrate,Urine Negative (Negative); PH,Urine 6.5 (5.0-8.5); Protein,Urine Negative (Negative); Specific Gravity, Urine 1.025 (1.005-1.030)
[2023-04-12 00:21] LABS: Chloride 103 mmol/L (98-107); Sodium 141 mmol/L (136-145)
[2023-04-12 00:23] LABS: Alanine Aminotransferase 73 U/L (12-78); Aspartate Amino Transferase 118 U/L (14-36); Bilirubin,Total 0.7 mg/dl (0.2-1.3); Blood Urea Nitrogen 18 mg/dl (7-17); Creatinine Clearance Estimated 181 mL/min (50-200); Estimated Glomerular Filt Rate 85 ml/min (>60); GFR (African American) 103 ML/MIN (>60)
[2023-04-12 00:24] LABS: Albumin Level 4.3 g/dl (3.5-5.0); Albumin/Globulin Ratio 1.3 (1.1-1.8); Alkaline Phosphatase 122 U/L (38-126); Calcium 9.1 mg/dl (8.4-10.2); Carbon Dioxide 31 mmol/L (22.0-30.0); Globulin 3.4 g/dL (1.3-3.2); Glucose 104 mg/dl (74-100); Lipase 477 U/L (23-300); Total Protein,Serum 7.7 g/dl (6.3-8.2)
[2023-04-12 00:26] LABS: Bilirubin,Urine 1+ (Negative)
[2023-04-12 00:32] LABS: Bacteria,Urine Trace /lpf; WBC,Urine Occasional #/hpf (0-3)
[2023-04-12] MEDS: IOPAMIDOL-370 (76%);100ML BOTTLE 75 ML IV (00:41)
[2023-04-12] MEDS: SODIUM CHLORIDE 0.9% 10ML SYR (RAD ONLY) 10 ML IV (00:41)
[2023-04-12 01:07] VITALS: BP 114/55; PULSE 74; RESP 16; TEMP 36.9; O2SAT 97
== END 2023-04-12 01:15 | disposition home or self-care (01) ==
PROVIDERS: Emergency Provider Emergency Medicine; PCP Family Medicine
DX: R10.11 Right upper quadrant pain (principal); R11.2 Nausea with vomiting, unspecified; F17.200 Nicotine dependence, unspecified, uncomplicated; D72.829 Elevated white blood cell count, unspecified; R74.8 Abnormal levels of other serum enzymes
CPT/HCPCS: 74177; 80053; 81001; 83690; 85025; 96361; 96374; 96375; 99285; J2405; Q9967

== ENCOUNTER 2023-06-09 02:01 | Emergency (ER) | payer BC, SELFPAY ==
[2023-06-09] VITALS (13 sets, daily range): BP systolic 101–131; BP diastolic 48–69; PULSE 61–111; RESP 17–20; TEMP 36.8; O2SAT 96–100; BMI 39.7
--- NOTE | 2023-06-09 02:19 | ED_ITS ---
Discharge Plan Disposition Patient Disposition: Xfer Other Chief Complaint: Abdominal Pain Prescriptions Prescriptions: No Action sertraline 25 mg tablet 25 mg PO DAILY Qty: 30 2RF Rx Instructions: Please take 1 tab every day for the next 2 weeks. For the following 2 weeks please take 1 tab every other day. After that she may discontinue the medication Referrals Follow up/Referrals: Matthew Lake MD [Primary Care Provider] - See instructions Clinical Impressions Clinical Impression: Choledocholithiasis, Abdominal pain, acute, right upper quadrant Stand Alone Forms Stand Alone Forms: Transfer Record - ED Instructions Patient Instructions: DI for Acute Abdominal Pain Discharge ED Provider: Satya Yarbrough General Adult HPI General Chief complaint: Abdominal Pain Stated complaint: history gall bladder issues,pain r side,vomiting Time Seen by Provider: 06/09/23 02:05 History of Present Illness HPI narrative: 28-year-old female presents with right upper quadrant pain. She reports that been ongoing for approximately 3 to 4 hours prior to arrival. She reports that she thinks it is her gallbladder. She was seen in the ER in March for similar symptoms, had a normal ultrasound and CT scan but mildly elevated lipase and AST at that time. she was discharged with PCP follow-up, she has been trying to follow-up with PCP but has not yet had a formal ultrasound and has not been referred to a general surgeon. She is for started having issues with her gallbladder during her . She delivered in February. She reports that she gets intermittent right upper quadrant pain, but this is more severe and persistent than normal. She denies any fever. She reports that she had been vomiting as well. Related Data Previous Rx's Medication Instructions Recorded sertraline 25 mg tablet 25 mg PO DAILY #30 tabs 06/01/23 Allergies Allergy/AdvReac Type Severity Reaction Status Date / Time No Known Allergies Allergy Verified 06/01/23 14:35 [facility] Disclaimer: The information contained in this section may have been updated after the patient was seen, as this information can be updated by other users. Medical History (Updated 06/09/23 @ 04:31 by Satya Yarbrough MD) Anxiety and depression Surgical History (Updated 06/01/23 @ 14:41 by LARRY Lowe) [place] teeth extracted Family History Grandmother Diabetes Grandfather Heart attack Stroke Social History (Updated 06/01/23 @ 14:41 by LARRY Lowe) Smoking Status: Never smoker alcohol intake: current substance use type: denies use current occupational status: other Travel in the last 8 weeks: None household members: spouse housing: house ROS Obtained: Yes All systems reviewed & no additional complaints except as documented Physical Exam General General appearance: alert and in no apparent distress Head Head exam: atraumatic and normocephalic Eye Eye exam: Present normal appearance, PERRL and EOMI ENT ENT exam: Present normal oropharynx and normal external ear exam Neck Neck exam: Present normal inspection and full ROM Chest Chest inspection: Present normal inspection and symmetric chest wall rise; Absent tenderness Respiratory Respiratory exam: Present normal lung sounds bilaterally; Absent respiratory distress Cardiovascular Cardiovascular exam: Present regular rate and normal rhythm Abdominal Exam Abdominal exam: Present soft and tenderness (Right upper quadrant); Absent distention or guarding Extremities Exam Extremities exam: Present normal inspection; Absent edema or joint swelling Back Exam Back exam: Present normal inspection; Absent tenderness Neurological Exam Neurological exam: Present alert and oriented X3; Absent motor sensory deficit Psychiatric Psychiatric exam: Present normal affect and normal mood Skin Skin exam: Present warm, dry and normal color Lymphatic Lymphatic Findings: no adenopathy Medical Decision Making Medical Records Medical records reviewed: Yes I reviewed the patient's medical records. Freddy Inquiry Pt receiving controlled substance: No Freddy was queried for this patient: No Vital Signs: 06/09/23 02:12 06/09/23 02:15 06/09/23 02:30 Temperature 98.2 F Temperature Source Oral Pulse Rate 111 H 86 Pulse Rate [Left Radial] 87 Respiratory Rate 20 Blood Pressure 131/69 118/69 Blood Pressure [Right Arm] 118/69 Blood Pressure Mean 82 80 Blood Pressure Mean [Right Arm] 85 Blood Pressure Source [Right Arm] Automatic Cuff Blood Pressure Position [Right Arm] Sitting 02 Sat by Pulse Oximetry 98 98 99 Oxygen Delivery Method Room Air 06/09/23 02:37 06/09/23 02:45 06/09/23 03:00 Temperature Temperature Source Pulse Rate 69 67 74 Pulse Rate [Left Radial] Respiratory Rate Blood Pressure 118/58 L 118/59 L 110/66 Blood Pressure [Right Arm] Blood Pressure Mean 78 76 75 Blood Pressure Mean [Right Arm] Blood Pressure Source [Right Arm] Blood Pressure Position [Right Arm] 02 Sat by Pulse Oximetry 99 100 100 Oxygen Delivery Method 06/09/23 03:15 06/09/23 03:31 06/09/23 03:45 Temperature Temperature Source Pulse Rate 79 79 69 Pulse Rate [Left Radial] Respiratory Rate Blood Pressure 117/60 117/59 L 108/53 L Blood Pressure [Right Arm] Blood Pressure Mean 82 78 71 Blood Pressure Mean [Right Arm] Blood Pressure Source [Right Arm] Blood Pressure Position [Right Arm] 02 Sat by Pulse Oximetry 99 98 97 Oxygen Delivery Method Lab Data Lab results reviewed: Yes I reviewed the patient's lab results. Lab Results 06/09/23 02:23: WBC 10.2, RBC 4.33, Hgb 12.3, Hct 39.3, MCV 90.7, MCH 28.3, MCHC 31.2 L, RDW 14.2, Plt Count 359, MPV 7.7, Neut % (Auto) 78.1, Lymph % (Auto) 14.1, [place] % (Auto) 5.4, Eos % (Auto) 1.8, Baso % (Auto) 0.6, Neut # (Auto) 8.0 H, Lymph # (Auto) 1.5, [place] # (Auto) 0.6, Eos # (Auto) 0.2, Baso # (Auto) 0.1, Sodium 140, Potassium 4.0, Chloride 105, Carbon Dioxide 29, Anion Gap 10.0, BUN 14, Creatinine 0.70, Estimated Creat Clear 216, Estimated GFR 99, Est GFR ( Amer) 120, Glucose 105 H, Calcium 9.2, Total Bilirubin 0.4, AST 88 H, ALT 61, Alkaline Phosphatase 124, Total Protein 7.5, Albumin 4.3, Globulin 3.2, Albumin/Globulin Ratio 1.3, Lipase 449 H, Serum HCG, Qual Negative 06/09/23 02:23 06/09/23 02:23 Orders (Tests/Meds): ED MEDICATIONS Generic Name Dose Route Start Last Admin Trade Name Freq PRN Reason Stop Dose Admin Sodium Chloride 10 ml 06/09/23 02:59 06/09/23 03:00 Sodium Chloride 0.9% 10ml Syr (Rad Only) IV 07/09/23 02:58 10 ml NEEDED PRN Administration Maintain IV Site Discontinued Medications Generic Name Dose Route Start Last Admin Trade Name Freq PRN Reason Stop Dose Admin Acetaminophen 1,000 mg 06/09/23 02:19 06/09/23 02:34 Acetaminophen 500mg Tab PO 06/09/23 02:20 1,000 mg ONCE ONE Administration Lactated Ringer's 1,000 mls @ 999 mls/hr 06/09/23 02:30 06/09/23 02:34 Lactated Ringer's 1000 Ml Bag IV 06/09/23 03:30 999 mls/hr .Q1H1M GILBERT Administration Iopamidol 75 ml 06/09/23 02:59 06/09/23 03:00 Iopamidol-370 (76%);100ml Bottle IV 06/09/23 03:00 75 ml ONCE ONE Administration Ketorolac Tromethamine 30 mg 06/09/23 02:19 06/09/23 02:47 Ketorolac 30mg/Ml Vial IV 06/09/23 02:20 30 mg ONCE ONE Administration Morphine Sulfate 4 mg 06/09/23 03:17 06/09/23 03:24 Morphine 4mg/Ml Syringe IV 06/09/23 03:18 4 mg ONCE ONE Administration Ondansetron HCl 4 mg 06/09/23 02:19 06/09/23 02:34 Ondansetron 4mg/2ml Vial IV 06/09/23 02:20 4 mg ONCE ONE Administration ORDERS Category Date Time Status CT abdomen pelvis w con Stat Cat Scan 06/09/23 02:20 Completed CBC w/Auto Diff [Complete Blood Count Auto Diff] Stat Lab 06/09/23 02:23 Completed CMP [Comprehensive Metabolic Panel] Stat Lab 06/09/23 02:23 Completed HCG Qualitative, Serum Stat Lab 06/09/23 02:23 Completed Lipase Stat Lab 06/09/23 02:23 Completed Medical Decision Narrative: 28-year-old female presents with acute on chronic right upper quadrant pain. History was obtained interactive discussion with patient, chart review. On arrival, patient is [afebrile, hemodynamically stable, satting appropriately, alert, oriented x4, GCS 15], moving all extremities spontaneously. Full physical exam performed and significant for moderate right upper quadrant tenderness Differential includes but is not limited to acute cholecystitis, choledocholithiasis, ascending cholangitis, sphincter of Oddi dysfunction, pancreatitis, gastroenteritis, constipation. Patient was given p.o. Tylenol, IV Toradol, IV morphine, 1 L fluid bolus, IV Zofran for symptomatic management and correction of underlying abnormalities. Workup initiated including CBC CMP lipase test CT abdomen pelvis with IV contrast. A bedside ultrasound was performed by me and showed normal gallbladder wall thickness, no pericholecystic fluid, did demonstrate sludge in the gallbladder, unable to visualize the common bile duct. On re-evaluation, patient [remains afebrile, HD stable.] Reports pain is gone from an 8 out of 10 to 2 out of 10. Nausea improved. Laboratory workup independently interpreted by me and significant for AST 88, alk phos normal, bilirubin 0.4, lipase elevated at 449. Imaging independently interpreted by me and significant for gallbladder distention. Also shows mild prominence of the intra and extra hepatic biliary collecting system, with the common bile duct measuring at 7 mm at the pancreatic head. See radiology read for full review of final results. On reassessment, RUQ tenderness has abated. Given radiographic evidence of biliary ductal dilatation, mildly elevated AST and elevated lipase, and bedside ultrasound imaging with sludge, I am concerned that patient may have choledocholithiasis. Patient has normal wbc, No pericholecystic fluid on my bedside ultrasound, and no fever to suggest acute cholecystitis/ascending cholangitis. Given we do not have the capability of doing ERCP at our facility, I had an interactive discussion with the transfer center and Dr. Rubalcava who accepted the patient in transfer to the [facility] ER. Given patient is hemodynamically stable, after discussion with patient she elected to travel POV to . She was discharged in stable condition with instructions to proceed directly to [place] ED. Procedures Risk/Benefits of Procedure(s) Were Explained: Yes Limited Ultrasound Indication:: Limited RUQ ultrasound Indication: Right upper quadrant abdominal pain Identified structures: -Gallbladder -Gallbladder wall -Liver Findings: Sonographic Yu sign: Present Gallstones: Absent Sludge: Present Pericholecystic fluid: Absent Maximal GB wall thickness (mm): [normal is </= 3mm] 2.1 mm Common bile duct width (mm): [normal is </= 6mm] Unable to visualize Gallbladder width (cm): [normal is < 4cm] 3.25 cm Gallbladder length (cm): [normal is < 10cm] Grossly normal Impression: Sludge noted, no pericholecystic fluid or gallbladder wall thickening, unable to visualize common bile duct, tenderness greatest over the gallbladder. Images were saved to permanent archive The study was technically adequate CPT 54217-71 This study was performed by me, and I personally interpreted all images/videos. Critical Care Critical Care Time Critical Care Time: No
--- NOTE | 2023-06-09 02:20 | CT_ITS ---
PROCEDURE INFORMATION: Exam: CT Abdomen And Pelvis With Contrast Exam date and time: 06/09/2023 2:53 AM Age: 28 years old Clinical indication: Abdominal pain; Additional info: Ruq pain TECHNIQUE: Imaging protocol: Computed tomography of the abdomen and pelvis with contrast. Radiation optimization: All CT scans at this facility use at least one of these dose optimization techniques: automated exposure control; mA and/or kV adjustment per patient size (includes targeted exams where dose is matched to clinical indication); or iterative reconstruction. Contrast material: ISOVUE; Contrast volume: 75 ml; Contrast route: IV; COMPARISON: CT ABDOMEN PELVIS W CON 04/12/2023 12:35 AM FINDINGS: Lungs: Nonspecific nodularity of the midline right lower lobe, measuring additional 11 x 9 mm. Additional nodularity is seen along the anterior pleural reflection at the posterior cardiomediastinal angle of the right lower lobe at the midline aspect (series 3, image 12). Heart: Unremarkable as visualized. Liver: No mass. No hepatomegaly. Gallbladder and bile ducts: Mild prominence of the intrahepatic and extrahepatic biliary collecting system, common bile duct measuring 7 mm at pancreatic head. The gallbladder is distended with suspicion of small amount of pericholecystic fluid/wall thickening. Pancreas: Normal. No ductal dilation. Spleen: Normal. No splenomegaly. Adrenal glands: Normal. No mass. Kidneys and ureters: Unremarkable. Stomach and bowel: Unremarkable. No obstruction. No mucosal thickening. Appendix: No evidence of appendicitis. Intraperitoneal space: Unremarkable. No free air. No significant fluid collection. Vasculature: Unremarkable. No abdominal aortic aneurysm. Lymph nodes: Unremarkable. No enlarged lymph nodes. Urinary bladder: Bladder is decompressed with circumferential wall thickening. Reproductive: Unremarkable as visualized. Bones/joints: Unremarkable. No acute fracture. Soft tissues: Unremarkable. IMPRESSION: 1. Gallbladder is distended with suspicion of pericholecystic fluid versus wall thickening, recommend right upper quadrant ultrasound for definitive assessment if not already obtained. 2. Unchanged parenchymal nodularity of the right lung base as detailed above which has essentially remained stable from 01/23/2019, nonspecific, however given stability is overwhelmingly likely to represent benign etiology.
[2023-06-09] MEDS: ACETAMINOPHEN 500MG TAB 1000 MG PO (02:34)
[2023-06-09] MEDS: ONDANSETRON 4MG/2ML VIAL 4 MG IV (02:34)
[2023-06-09] MEDS: LACTATED RINGERS 1000ML 1,000 ML 999 ML IV (02:34)
[2023-06-09 02:38] LABS: Basophils # 0.1 K/mm3 (0-0.2); Basophils % 0.6 % (0.1-2.0); Eosinophils # 0.2 K/mm3 (0.0-0.4); Eosinophils % 1.8 % (0.1-12.0); Hematocrit 39.3 % (37.0-47.0); Hemoglobin 12.3 g/dL (12.2-16.2); Lymphocytes # 1.5 K/mm3 (0.7-4.5); Lymphocytes % 14.1 % (10-50); Mean Corpuscular HGB Conc 31.2 g/dL (31.8-35.4); Mean Corpuscular Hemoglobin 28.3 pg (27.0-31.2); Mean Corpuscular Volume 90.7 fl (81-99); Mean Platelet Volume 7.7 fl (7.4-10.4); Monocytes # 0.6 K/mm3 (0.1-1.0); Monocytes % 5.4 % (1.7-9.3); Neutrophils % 78.1 % (37.0-80.0); Platelet Count 359 K/mm3 (142-424); Red Blood Count 4.33 M/mm3 (4.20-5.40); Red Cell Distribution Width 14.2 % (11.5-17.5); White Blood Count 10.2 K/mm3 (4.8-10.8)
[2023-06-09 02:39] LABS: Chloride 105 mmol/L (98-107); Sodium 140 mmol/L (136-145)
[2023-06-09 02:42] LABS: Alanine Aminotransferase 61 U/L (12-78); Albumin Level 4.3 g/dl (3.5-5.0); Albumin/Globulin Ratio 1.3 (1.1-1.8); Alkaline Phosphatase 124 U/L (38-126); Aspartate Amino Transferase 88 U/L (14-36); Bilirubin,Total 0.4 mg/dl (0.2-1.3); Blood Urea Nitrogen 14 mg/dl (7-17); Calcium 9.2 mg/dl (8.4-10.2); Carbon Dioxide 29 mmol/L (22.0-30.0); Creatinine Clearance Estimated 216 mL/min (50-200); Estimated Glomerular Filt Rate 99 ml/min (>60); GFR (African American) 120 ML/MIN (>60); Globulin 3.2 g/dL (1.3-3.2); Glucose 105 mg/dl (74-100); HCG Qualitative, Serum Negative (Negative); Lipase 449 U/L (23-300); Total Protein,Serum 7.5 g/dl (6.3-8.2)
[2023-06-09] MEDS: KETOROLAC 30MG/ML VIAL 30 MG IV (02:47)
[2023-06-09] MEDS: SODIUM CHLORIDE 0.9% 10ML SYR (RAD ONLY) 10 ML IV (03:00)
[2023-06-09] MEDS: IOPAMIDOL-370 (76%);100ML BOTTLE 75 ML IV (03:00)
[2023-06-09] MEDS: MORPHINE 4MG/ML SYRINGE 4 MG IV (03:24)
--- NOTE | 2023-06-09 04:13 | PC.NURSE ---
call placed to [facility]'s
--- NOTE | 2023-06-09 04:50 | PC.NURSE ---
Pt to [facility] ED with 20G IV in LAC. IV wrapped with coban and marked with X. Pt verbalizes understanding of leaving with IV and not using or touching IV for any reason.
== END 2023-06-09 04:54 | disposition other institution (70) ==
PROVIDERS: Emergency Provider Emergency Medicine; PCP Family Medicine
DX: K80.50 Calculus of bile duct without cholangitis or cholecystitis without obstruction (principal); R10.11 Right upper quadrant pain
CPT/HCPCS: 74177; 80053; 83690; 84703; 85025; 96361; 96374; 96375; 99285; J2405; Q9967

== ENCOUNTER 2023-06-12 19:26 | Emergency (ER) | payer BC, SELFPAY ==
[2023-06-12 20:07] VITALS: BP 132/79; PULSE 106; RESP 16; TEMP 36.7; O2SAT 96; BMI 39.0
--- NOTE | 2023-06-12 20:31 | ED_ITS ---
Discharge Plan Disposition Patient Disposition: Home, Self-Care Chief Complaint: Extremity Injury, Upper Prescriptions Prescriptions: No Action sertraline 25 mg tablet 25 mg PO DAILY Qty: 30 2RF Rx Instructions: Please take 1 tab every day for the next 2 weeks. For the following 2 weeks please take 1 tab every other day. After that she may discontinue the medication Referrals Follow up/Referrals: Matthew Lake MD [Primary Care Provider] - See instructions Clinical Impressions Clinical Impression: Bile leak, History of cholecystectomy, Rash, Abdominal pain Discharge ED Provider: Zeeshan Hutchins General Adult HPI <LAKHWINDER Coleman - Last Filed: 06/12/23 23:01> General Chief complaint: Extremity Injury, Upper Stated complaint: gall bladder surgery 06/10, vomiting, RT arm painf Time Seen by Provider: 06/12/23 20:00 Mode of Arrival: Family Vehicle Source of Information: Patient Limitations: No Limitations Description of Symptoms (Recalled from ER Triage Doc. by RN): arm pain and discomfort History of Present Illness HPI narrative: Patient presents for evaluation of bilateral upper extremity redness and burning that began today. Patient recently had a cholecystectomy for cholelithiasis without cholecystitis. Patient had a cholecystectomy at [facility] yesterday and was discharged today. Patient presents this evening with complaints of redness in her dorsum of the bilateral upper extremities without itching induration but describes burning pain. She denies chest pain shortness of breath fever chills hemoptysis hematochezia melena nausea vomit diarrhea initially on arrival Related Data Previous Rx's Medication Instructions Recorded sertraline 25 mg tablet 25 mg PO DAILY #30 tabs 06/01/23 Allergies Allergy/AdvReac Type Severity Reaction Status Date / Time No Known Allergies Allergy Verified 06/01/23 14:35 PFS <LAKHWINDER Coleman - Last Filed: 06/12/23 23:01> [facility] Disclaimer: The information contained in this section may have been updated after the patient was seen, as this information can be updated by other users. Medical History (Updated 06/12/23 @ 23:56 by Zeeshan Hutchins MD) Anxiety and depression Surgical History (Updated 06/12/23 @ 23:56 by Zeeshan Hutchins MD) [place] teeth extracted Family History Grandmother Diabetes Grandfather Heart attack Stroke Social History (Updated 06/01/23 @ 14:41 by LARRY Lowe) Smoking Status: Unknown if ever smoked alcohol intake: current substance use type: denies use current occupational status: other Travel in the last 8 weeks: None household members: spouse housing: house <LAKHWINDER Coleman - Last Filed: 06/12/23 23:01> ROS Obtained: Yes Systems reviewed as appropriate & no additional complaints except as documented Physical Exam <LAKHWINDER Coleman - Last Filed: 06/12/23 23:01> General General appearance: alert and in no apparent distress Head Head exam: atraumatic and normal inspection Eye Eye exam: Present normal appearance and EOMI ENT ENT exam: Present normal exam, normal oropharynx and mucous membranes moist Neck Neck exam: Present normal inspection and full ROM; Absent lymphadenopathy Chest Chest inspection: Present normal inspection and symmetric chest wall rise Respiratory Respiratory exam: Present normal lung sounds bilaterally; Absent accessory muscle use Cardiovascular Cardiovascular exam: Present regular rate, normal rhythm, normal heart sounds, +S1 and +S2 Abdominal Exam Abdominal exam: Present soft, tenderness (Soft expected postoperative tenderness and surgical sites are clean dry and intact.) and normal bowel sounds; Absent guarding or rebound Extremities Exam Extremities exam: Present normal inspection, full ROM, tenderness (Burning pain to the dorsum of the bilateral upper extremities.) and other (There is erythema on the dorsum of the bilateral upper extremities extending from the wrist to the upper arms. There is no evidence of palpable cords induration thrombosis on palpation. Patient is neurovascularly intact distally.) Neurological Exam Neurological exam: Present alert and oriented X3 Psychiatric Psychiatric exam: Present normal affect and normal mood Skin Skin exam: Present warm, dry and normal color Medical Decision Making <LAKHWINDER Coleman - Last Filed: 06/12/23 23:01> Medical Records Medical records reviewed: Yes I reviewed the patient's medical records. Freddy Inquiry Pt receiving controlled substance: No Vital Signs: 06/12/23 20:07 Temperature 98.1 F Temperature Source Oral Pulse Rate [Right Brachial] 106 H Respiratory Rate 16 Blood Pressure [Right Arm] 132/79 Blood Pressure Mean [Right Arm] 96 Blood Pressure Source [Right Arm] Automatic Cuff Blood Pressure Position [Right Arm] Sitting 02 Sat by Pulse Oximetry 96 Oxygen Delivery Method Room Air Lab Data Lab results reviewed: Yes I reviewed the patient's lab results. Lab Results 06/12/23 22:28: WBC 14.9 H, RBC 4.46, Hgb 13.1, Hct 39.9, MCV 89.6, MCH 29.5, MCHC 32.9, RDW 14.4, Plt Count 367, MPV 7.8, Neut % (Auto) 86.0 H, Lymph % (Auto) 8.5 L, [place] % (Auto) 4.0, Eos % (Auto) 1.2, Baso % (Auto) 0.4, Neut # (Auto) 12.8 H, Lymph # (Auto) 1.3, [place] # (Auto) 0.6, Eos # (Auto) 0.2, Baso # (Auto) 0.1, Total Counted 100, Neutrophils % (Manual) 85 H, Lymphocytes % (Manual) 13, Monocytes % (Manual) 2, Platelet Estimate Normal, RBC Morphology Normal, Sodium 139, Potassium 3.8, Chloride 103, Carbon Dioxide 30, Anion Gap 9.8, BUN 12, Creatinine 0.90, Estimated Creat Clear 165, Estimated GFR 74, Est GFR ( Amer) 90, Glucose 120 H, Calcium 9.7, Total Bilirubin 0.9, AST 57 H , ALT 139 H, Alkaline Phosphatase 121, Total Protein 8.1, Albumin 4.7, Globulin 3.4 H, Albumin/Globulin Ratio 1.4, Lipase 69, Serum HCG, Qual Negative 06/12/23 23:10: Urine Color Dark yellow, Urine Appearance Clear, Urine pH 6.0, Ur Specific [place] 1.015, Urine Protein Negative, Urine Glucose (UA) Negative, Urine Ketones Negative, Urine Blood 2+, Urine Nitrate Negative, Urine Bilirubin 1+ A, Urine Urobilinogen 0.2, Ur Leukocyte Esterase Negative, Urine RBC 3-5, Urine WBC None, Ur Squamous Epith Cells Occasional, Urine Bacteria None 06/12/23 22:28 06/12/23 22:28 Orders (Tests/Meds): ED MEDICATIONS Generic Name Dose Route Start Last Admin Trade Name Freq PRN Reason Stop Dose Admin Sodium Chloride 10 ml 06/12/23 22:37 06/12/23 22:39 Sodium Chloride 0.9% 10ml Syr (Rad Only) IV 07/12/23 22:36 10 ml NEEDED PRN Administration Maintain IV Site Discontinued Medications Generic Name Dose Route Start Last Admin Trade Name Pricilla PRN Reason Stop Dose Admin Acetaminophen 1,000 mg 06/12/23 22:32 06/12/23 23:08 Acetaminophen 1,000mg/100ml Vial IV 06/12/23 22:33 1,000 mg ONCE ONE Administration Iopamidol 75 ml 06/12/23 22:37 06/12/23 22:39 Iopamidol-370 (76%);100ml Bottle IV 06/12/23 22:38 75 ml ONCE ONE Administration Ketorolac Tromethamine 30 mg 06/12/23 23:17 06/12/23 23:21 Ketorolac 30mg/Ml Vial IV 06/12/23 23:18 30 mg ONCE ONE Administration Morphine Sulfate 4 mg 06/12/23 22:32 06/12/23 23:08 Morphine 4mg/Ml Syringe IV 06/12/23 22:33 4 mg ONCE ONE Administration Morphine Sulfate 4 mg 06/12/23 23:17 06/12/23 23:20 Morphine 4mg/Ml Syringe IV 06/12/23 23:18 4 mg ONCE ONE Administration ORDERS Category Date Time Status CT abdomen pelvis w con Stat Cat Scan 06/12/23 21:55 Completed CBC w/Auto Diff [Complete Blood Count Auto Diff] Stat Lab 06/12/23 22:28 Completed CMP [Comprehensive Metabolic Panel] Stat Lab 06/12/23 22:28 Completed HCG Qualitative, Serum Stat Lab 06/12/23 22:28 Completed Lipase Stat Lab 06/12/23 22:28 Completed UA [Urinalysis and Microscopic] Stat Lab 06/12/23 23:10 Completed Medical Decision Narrative: In summary patient is a 28-year-old female who presents to the emergency department for evaluation of initially a red rash on the bilateral upper extremities. Patient is hemodynamically stable but with slight tachycardia upon arrival, and afebrile. Zickel exam is remarkable for erythema on the dorsum of the bilateral upper extremities without induration. The upper borders were marked by myself. There are no lesions associated. Skin is hot to touch. Patient also started complaining of abdominal discomfort in the interval of my exam and laboratory investigation without associated nausea and vomiting.. Differential diagnosis includes drug exanthem versus contact dermatitis versus biloma versus expected postoperative pain. Initial workup will be conducted with hematologic labs CT scan of the abdomen. Workup is still pending at the time of transfer of care to Dr. Yarbrough at 2300 <Zeeshan Hutchins MD - Last Filed: 06/12/23 23:56> Vital Signs: 06/12/23 20:07 Temperature 98.1 F Temperature Source Oral Pulse Rate [Right Brachial] 106 H Respiratory Rate 16 Blood Pressure [Right Arm] 132/79 Blood Pressure Mean [Right Arm] 96 Blood Pressure Source [Right Arm] Automatic Cuff Blood Pressure Position [Right Arm] Sitting 02 Sat by Pulse Oximetry 96 Oxygen Delivery Method Room Air Lab Data Lab Results 06/12/23 22:28: WBC 14.9 H, RBC 4.46, Hgb 13.1, Hct 39.9, MCV 89.6, MCH 29.5, MCHC 32.9, RDW 14.4, Plt Count 367, MPV 7.8, Neut % (Auto) 86.0 H, Lymph % (Auto) 8.5 L, [place] % (Auto) 4.0, Eos % (Auto) 1.2, Baso % (Auto) 0.4, Neut # (Auto) 12.8 H, Lymph # (Auto) 1.3, [place] # (Auto) 0.6, Eos # (Auto) 0.2, Baso # (Auto) 0.1, Total Counted 100, Neutrophils % (Manual) 85 H, Lymphocytes % (Manual) 13, Monocytes % (Manual) 2, Platelet Estimate Normal, RBC Morphology Normal, Sodium 139, Potassium 3.8, Chloride 103, Carbon Dioxide 30, Anion Gap 9.8, BUN 12, Creatinine 0.90, Estimated Creat Clear 165, Estimated GFR 74, Est GFR ( Amer) 90, Glucose 120 H, Calcium 9.7, Total Bilirubin 0.9, AST 57 H , ALT 139 H, Alkaline Phosphatase 121, Total Protein 8.1, Albumin 4.7, Globulin 3.4 H, Albumin/Globulin Ratio 1.4, Lipase 69, Serum HCG, Qual Negative 06/12/23 23:10: Urine Color Dark yellow, Urine Appearance Clear, Urine pH 6.0, Ur Specific [place] 1.015, Urine Protein Negative, Urine Glucose (UA) Negative, Urine Ketones Negative, Urine Blood 2+, Urine Nitrate Negative, Urine Bilirubin 1+ A, Urine Urobilinogen 0.2, Ur Leukocyte Esterase Negative, Urine RBC 3-5, Urine WBC None, Ur Squamous Epith Cells Occasional, Urine Bacteria None Orders (Tests/Meds): ED MEDICATIONS Generic Name Dose Route Start Last Admin Trade Name Freq PRN Reason Stop Dose Admin Sodium Chloride 10 ml 06/12/23 22:37 06/12/23 22:39 Sodium Chloride 0.9% 10ml Syr (Rad Only) IV 07/12/23 22:36 10 ml NEEDED PRN Administration Maintain IV Site Discontinued Medications Generic Name Dose Route Start Last Admin Trade Name Freq PRN Reason Stop Dose Admin Acetaminophen 1,000 mg 06/12/23 22:32 06/12/23 23:08 Acetaminophen 1,000mg/100ml Vial IV 06/12/23 22:33 1,000 mg ONCE ONE Administration Iopamidol 75 ml 06/12/23 22:37 06/12/23 22:39 Iopamidol-370 (76%);100ml Bottle IV 06/12/23 22:38 75 ml ONCE ONE Administration Ketorolac Tromethamine 30 mg 06/12/23 23:17 06/12/23 23:21 Ketorolac 30mg/Ml Vial IV 06/12/23 23:18 30 mg ONCE ONE Administration Morphine Sulfate 4 mg 06/12/23 22:32 06/12/23 23:08 Morphine 4mg/Ml Syringe IV 06/12/23 22:33 4 mg ONCE ONE Administration Morphine Sulfate 4 mg 06/12/23 23:17 06/12/23 23:20 Morphine 4mg/Ml Syringe IV 06/12/23 23:18 4 mg ONCE ONE Administration ORDERS Category Date Time Status CT abdomen pelvis w con Stat Cat Scan 06/12/23 21:55 Completed CBC w/Auto Diff [Complete Blood Count Auto Diff] Stat Lab 06/12/23 22:28 Completed CMP [Comprehensive Metabolic Panel] Stat Lab 06/12/23 22:28 Completed HCG Qualitative, Serum Stat Lab 06/12/23 22:28 Completed Lipase Stat Lab 06/12/23 22:28 Completed UA [Urinalysis and Microscopic] Stat Lab 06/12/23 23:10 Completed Medical Decision Narrative: In summary patient is a 28-year-old female who presents to the emergency department for evaluation of initially a red rash on the bilateral upper extremities. Patient is hemodynamically stable but with slight tachycardia upon arrival, and afebrile. Physical exam is remarkable for erythema on the dorsum of the bilateral upper extremities without induration. The upper borders were marked by myself. There are no lesions associated. Skin is hot to touch. Patient also started complaining of abdominal discomfort in the interval of my exam and laboratory investigation without associated nausea and vomiting.. Differential diagnosis includes drug exanthem versus contact dermatitis versus biloma versus expected postoperative pain. Initial workup will be conducted with hematologic labs CT scan of the abdomen. Zeeshan Hutchins: The above paragraph's FABIOLA documentation. Patient has no significant past medical history with the exception of recent laparoscopic cholecystectomy at [facility]. She presented with 2 complaints today, erythroderma on her bilateral upper extremities only on the dorsal aspect, no peeling, no other skin lesions, no involvement of the mucosal membranes. Patient has had progressive worsening right hemiabdominal pain despite her [id number] pain medicine which she was discharged on and has been compliant with. Patient is tender on my exam in her right lower quadrant more than her right upper quadrant, no significant rebound or guarding. She does have difficulty ambulating and has had progressive pain throughout the day. Differential includes bile leak, routine postoperative pain secondary to inflammation, among others. Workup that was conducted shows leukocytosis with left shift which is not particularly concerning given her history of recent surgery, no LISA or critical electrolyte abnormalities, no elevated bilirubin, patient is non. Urinalysis interpreted by me and not consistent with infection. CT imaging of the abdomen and pelvis informally interpreted by me, air appears to be free fluid in the right upper quadrant and inflammatory changes extending down into the right lower quadrant. This may be expected in the perioperative state however the case was discussed with radiologist on-call and this is more fluid and inflammation than would be expected routinely. He is concern for bile leak. Given this the case was discussed with [facility] Dr. Delgadillo and Dr. Mckeon who graciously accepted patient for continued evaluation at this time. Upon repeat evaluation prior to transfer patient had spontaneous resolution of erythroderma on the extremities. Patient required multiple doses of pain control in the emergency department. Critical Care <LAKHWINDER Coleman - Last Filed: 06/12/23 23:01> Critical Care Time Critical Care Time: No
--- NOTE | 2023-06-12 21:55 | CT_ITS ---
PROCEDURE INFORMATION: Exam: CT Abdomen And Pelvis With Contrast Exam date and time: 06/12/2023 10:30 PM Age: 28 years old Clinical indication: Abdominal pain; Generalized; Prior surgery; Surgery date: Post-operative (0-2 days); Surgery type: Patient had laparoscopy choleycystectomy at [facility] yesterday. ; Additional info: Recent ccy, abd pain TECHNIQUE: Imaging protocol: Computed tomography of the abdomen and pelvis with contrast. Radiation optimization: All CT scans at this facility use at least one of these dose optimization techniques: automated exposure control; mA and/or kV adjustment per patient size (includes targeted exams where dose is matched to clinical indication); or iterative reconstruction. Contrast material: ISOVUE; Contrast volume: 75 ml; Contrast route: IV; COMPARISON: CT ABDOMEN PELVIS W CON 06/09/2023 2:53 AM FINDINGS: Tubes, catheters and devices: None noted. Lungs: Lung bases appear clear. Heart: No significant coronary calcifications. No cardiomegaly. No significant pericardial effusion. Liver: Normal. No mass. Gallbladder and bile ducts: Cholecystectomy with recent postsurgical inflammatory change, small amount of fluid in the pelvis. No ductal dilation. Pancreas: Normal. No ductal dilation. Spleen: Normal. No splenomegaly. Adrenal glands: Normal. No mass. Kidneys and ureters: Normal. No hydronephrosis. Stomach and bowel: Unremarkable. No obstruction. No mucosal thickening. Appendix: No evidence of appendicitis. Intraperitoneal space: Unremarkable. No free air. No significant fluid collection. Retroperitoneal space: No significant retroperitoneal inflammatory changes are noted. Vasculature: Unremarkable. No abdominal aortic aneurysm. Lymph nodes: Unremarkable. No enlarged lymph nodes. Urinary bladder: Unremarkable as visualized. Reproductive: Unremarkable as visualized. Bones/joints: Unremarkable. No acute fracture. Soft tissues: Unremarkable. IMPRESSION: 1. Cholecystectomy with recent postsurgical inflammatory change, small amount of fluid in the pelvis. 2. Consider postsurgical peritoneal bile leak.
[2023-06-12 22:37] LABS: Basophils # 0.1 K/mm3 (0-0.2); Basophils % 0.4 % (0.1-2.0); Eosinophils # 0.2 K/mm3 (0.0-0.4); Eosinophils % 1.2 % (0.1-12.0); Hematocrit 39.9 % (37.0-47.0); Hemoglobin 13.1 g/dL (12.2-16.2); Lymphocytes # 1.3 K/mm3 (0.7-4.5); Lymphocytes % 8.5 % (10-50); Mean Corpuscular HGB Conc 32.9 g/dL (31.8-35.4); Mean Corpuscular Hemoglobin 29.5 pg (27.0-31.2); Mean Corpuscular Volume 89.6 fl (81-99); Mean Platelet Volume 7.8 fl (7.4-10.4); Monocytes # 0.6 K/mm3 (0.1-1.0); Neutrophils # 12.8 K/mm3 (1.8-7.8); Platelet Count 367 K/mm3 (142-424); Red Blood Count 4.46 M/mm3 (4.20-5.40); Red Cell Distribution Width 14.4 % (11.5-17.5); White Blood Count 14.9 K/mm3 (4.8-10.8)
[2023-06-12] MEDS: SODIUM CHLORIDE 0.9% 10ML SYR (RAD ONLY) 10 ML IV (22:39)
[2023-06-12] MEDS: IOPAMIDOL-370 (76%);100ML BOTTLE 75 ML IV (22:39)
[2023-06-12 22:43] LABS: Alanine Aminotransferase 139 U/L (12-78); Albumin Level 4.7 g/dl (3.5-5.0); Albumin/Globulin Ratio 1.4 (1.1-1.8); Alkaline Phosphatase 121 U/L (38-126); Anion Gap 9.8 mEq/L (5-15); Aspartate Amino Transferase 57 U/L (14-36); Bilirubin,Total 0.9 mg/dl (0.2-1.3); Blood Urea Nitrogen 12 mg/dl (7-17); Calcium 9.7 mg/dl (8.4-10.2); Carbon Dioxide 30 mmol/L (22.0-30.0); Chloride 103 mmol/L (98-107); Creatinine Clearance Estimated 165 mL/min (50-200); Estimated Glomerular Filt Rate 74 ml/min (>60); GFR (African American) 90 ML/MIN (>60); Globulin 3.4 g/dL (1.3-3.2); Glucose 120 mg/dl (74-100); Potassium 3.8 mmoL/L (3.5-5.1); Sodium 139 mmol/L (136-145); Total Protein,Serum 8.1 g/dl (6.3-8.2)
[2023-06-12 22:49] LABS: MANUAL DIFFERENTIAL MANUAL DIFFERENTIAL (MANUAL DIFF)
[2023-06-12 22:52] LABS: HCG Qualitative, Serum Negative (Negative); Lipase 69 U/L (23-300)
[2023-06-12] MEDS: MORPHINE 4MG/ML SYRINGE 4 MG IV ×2 (23:08→23:20)
[2023-06-12] MEDS: ACETAMINOPHEN 1,000MG/100ML VIAL 1000 MG IV (23:08)
[2023-06-12 23:20] LABS: Microscopic, Urine URINE MICROSCOPIC (MICROSCOPIC)
[2023-06-12] MEDS: KETOROLAC 30MG/ML VIAL 30 MG IV (23:21)
[2023-06-12 23:26] LABS: Appearance,Urine CLEAR (Clear); Blood, Urine 2+ (Negative); Color,Urine DARK YELLOW (Yellow); Glucose,Urine (UA) Negative (Negative); Ketones,Urine Negative (Negative); Leukocyte Esterase,Urine Negative (Negative); Nitrate,Urine Negative (Negative); Protein,Urine Negative (Negative); Specific Gravity, Urine 1.015 (1.005-1.030); Urobilinogen,Urine 0.2 EU/dl (0.2)
[2023-06-12 23:29] LABS: Lymphocytes % 13 % (10-50); Monocytes % 2 % (2-9); Neutrophils % 85 % (42-76); Platelet Estimate Normal; RBC Morphology Normal; Total Cells Counted 100
[2023-06-12 23:33] LABS: Bilirubin,Urine 1+ (Negative)
[2023-06-12 23:34] LABS: Squamous Epithelial Cell,Urine Occasional #/hpf (0-5)
[2023-06-13 00:50] VITALS: BP 127/68; PULSE 92; RESP 18; TEMP 36.8; O2SAT 97
== END 2023-06-13 00:52 | disposition home or self-care (01) ==
PROVIDERS: Physician Assistant; Emergency Provider Emergency Medicine; PCP Family Medicine
DX: R10.11 Right upper quadrant pain; K91.89 Other postprocedural complications and disorders of digestive system; R21 Rash and other nonspecific skin eruption
CPT/HCPCS: 74177; 80053; 81001; 83690; 84703; 85007; 85025; 96374; 96375; 96376; 99285; J0131; Q9967

== ENCOUNTER 2023-06-29 18:06 | Emergency (ER) | payer BC, SELFPAY ==
[2023-06-29 18:10] VITALS: BP 146/70; PULSE 125; RESP 20; TEMP 38.3; O2SAT 98; BMI 38.0
--- NOTE | 2023-06-29 18:15 | EXP.UTC ---
Discharge Plan Disposition Patient Disposition: Home, Self-Care Condition: Good Prescriptions Prescriptions: New methylprednisolone 4 mg Tablets,Dose Pack 4 mg PO DIRECTED 6 Days Qty: 21 0RF Rx Instructions: Take 1 pack as directed for 6 days [id number] [Bromfed DM] 2-30-10 mg/5 mL Syrup 5 ml PO Q6H PRN (Reason: Cough) Qty: 240 0RF No Action sertraline 25 mg tablet 50 mg PO DAILY Rx Instructions: Please take 1 tab every day for the next 2 weeks. For the following 2 weeks please take 1 tab every other day. After that she may discontinue the medication Referrals Follow up/Referrals: Matthew Lake MD [Primary Care Provider] - See instructions Activity Restrictions/Add. Instructions Additional Instructions/Restrictions: Drink plenty of fluids. Take tylenol for pain or fever. Take the medications as directed. Follow up with your regular doctor. GO TO THE ER FOR ANY WORSENING SYMPTOMS Don't start the oral steroids until tomorrow since you had the steroid shot here today. Clinical Impressions Clinical Impression: Strep throat Stand Alone Forms Stand Alone Forms: Work/School Release Instructions Patient Instructions: Strep Throat, DI for Strep Throat Discharge ED Provider: Darien Arriola [facility] General Stated complaint: sore throat,fever, headache Time Seen by Provider: 06/29/23 18:13 History of Present Illness Provider Complaint: She states that for the past 2 days she has had worsening sore throat. She has had fever up to 102 also. Related Data Home Medications Medication Instructions Recorded Confirmed sertraline 25 mg tablet 50 mg PO DAILY 06/29/23 06/29/23 Previous Rx's Medication Instructions Recorded pzqvnzjgewvgueu-hwxjezclwffoolr-FH 5 ml PO Q6H PRN Cough #240 mL 06/29/23 2 mg-30 mg-10 mg/5 mL oral syrup (Bromfed DM) methylprednisolone 4 mg tablets in 4 mg PO DIRECTED 6 days #21 tabs 06/29/23 a dose pack Allergies Allergy/AdvReac Type Severity Reaction Status Date / Time oxycodone Allergy Verified 06/29/23 18:21 [facility] Disclaimer: The information contained in this section may have been updated after the patient was seen, as this information can be updated by other users. Medical History (Updated 06/29/23 @ 18:54 by Darien Arriola APRN) Anxiety and depression Surgical History (Updated 06/12/23 @ 23:56 by Zeeshan Hutchins MD) [place] teeth extracted Family History Grandmother Diabetes Grandfather Heart attack Stroke Social History (Updated 06/01/23 @ 14:41 by LARRY Lowe) Smoking Status: Unknown if ever smoked alcohol intake: current substance use type: denies use current occupational status: other Travel in the last 8 weeks: None household members: spouse housing: house ROS Obtained: Yes All systems reviewed & no additional complaints except as documented Constitutional Constitutional: Reports chills and Reports fever(s) Eyes Eyes: Denies eye discharge ENT Ears, Nose, Mouth, and Throat: Reports as per HPI Cardiovascular Cardiovascular: Denies chest pain Respiratory Respiratory: Denies chest congestion and Reports cough Gastrointestinal Gastrointestingal: Reports nausea; Denies abdominal pain, constipation, cramping, diarrhea or vomiting Musculoskeletal Musculoskeletal: Denies arthralgias Integumentary/Breasts Skin/Breast: Denies rash Neurologic Neurologic: Denies paresthesias Physical Exam General General appearance: alert and in no apparent distress Head Head exam: atraumatic, normocephalic and normal inspection Eye Eye exam: Present normal appearance, PERRL and EOMI ENT ENT exam: Present mucous membranes moist and normal external ear exam Expanded ENT Exam TM/Canal exam: Bilateral TM: erythema and bulging Nose exam: Absent sinus tenderness Mouth exam: Present normal external inspection; Absent drooling Teeth exam: Present normal inspection Throat exam: Present tonsillar erythema, tonsillomegaly and tonsillar exudate Neck Neck exam: Present normal inspection, full ROM and trachea midline; Absent tenderness, meningismus or lymphadenopathy Chest Chest inspection: Present normal inspection and symmetric chest wall rise; Absent tenderness Respiratory Respiratory exam: Present normal lung sounds bilaterally; Absent respiratory distress, wheezes, stridor or accessory muscle use Cardiovascular Cardiovascular exam: Present regular rate and normal rhythm; Absent systolic murmur or diastolic murmur Abdominal Exam Abdominal exam: Present soft and normal bowel sounds; Absent distention, tenderness, guarding, rebound or rigidity Extremities Exam Extremities exam: Present normal inspection and normal capillary refill; Absent calf tenderness Back Exam Back exam: Present normal inspection and full ROM; Absent tenderness, CVA tenderness (R) or CVA tenderness (L) Neurological Exam Neurological exam: Present alert, oriented X3 and CN II-XII intact Psychiatric Psychiatric exam: Present normal affect and normal mood Skin Skin exam: Present warm, dry, intact and normal color Medical Decision Making Medical Records Medical records reviewed: No I reviewed the patient's medical records. Freddy Inquiry Pt receiving controlled substance: No Lab Data Lab results reviewed: Yes I reviewed the patient's lab results.
[2023-06-29 18:31] LABS: UTC Influenza A Antigen Negative (Negative); UTC Influenza B Antigen Negative (Negative); UTC Strep Screen (Rapid) Positive (Negative)
[2023-06-29] MEDS: DEXAMETHASONE 4MG/ML 1ML VIAL 8 MG IM (18:45)
[2023-06-29] MEDS: PENICILLIN G BENZATHINE 1,200,000 UNITS/2ML SYRINGE 1200000 UNIT IM (18:45)
[2023-06-29 18:58] VITALS: BP 146/70; PULSE 125; RESP 20; TEMP 38.3; O2SAT 98
[2023-06-29] MEDS: ACETAMINOPHEN 325MG TAB 650 MG PO (19:02)
== END 2023-06-29 19:02 | disposition home or self-care (01) ==
PROVIDERS: Emergency Provider Nurse Practitioner Family; PCP Family Medicine
DX: J02.0 Streptococcal pharyngitis (principal); R07.0 Pain in throat; R50.9 Fever, unspecified; R51.9 Headache, unspecified
CPT/HCPCS: 87804; 87880; 96372; 99212; 99214; G0463; J0561

== ENCOUNTER 2024-02-20 16:09 | Outpatient (CLI) | payer BC, SELFPAY ==
[2024-02-20 17:01] LABS: Albumin Level 4.6 g/dl (3.5-5.0); Chloride 105 mmol/L (98-107); Sodium 140 mmol/L (136-145)
[2024-02-20 17:03] LABS: Blood Urea Nitrogen 15 mg/dl (7-17); Estimated Glomerular Filt Rate 98 ml/min (>60); GFR (African American) 119 ML/MIN (>60)
[2024-02-20 17:04] LABS: Alanine Aminotransferase 22 U/L (12-78); Albumin/Globulin Ratio 1.6 (1.1-1.8); Alkaline Phosphatase 70 U/L (38-126); Aspartate Amino Transferase 26 U/L (14-36); Bilirubin,Total 0.5 mg/dl (0.2-1.3); Calcium 9.2 mg/dl (8.4-10.2); Carbon Dioxide 30 mmol/L (22.0-30.0); Globulin 2.8 g/dL (1.3-3.2); Glucose 93 mg/dl (74-100); Total Protein,Serum 7.4 g/dl (6.3-8.2)
[2024-02-21 07:16] LABS: Hepatitis B Surface Antigen Negative (Negative)
[2024-02-27 02:13] LABS: Anti Mullerian Hormone (AMH) 7.49 ng/mL (.)
[2024-02-27 15:04] LABS: Hepatitis C Antibody NON REACTIVE
== END 2024-02-20 23:59 | disposition home or self-care (01) ==
LOC: LAB 16:10
PROVIDERS: PCP Family Medicine; Visit Provider Obstetrics & Gynecology
DX: R79.89 Other specified abnormal findings of blood chemistry (principal); N93.9 Abnormal uterine and vaginal bleeding, unspecified
CPT/HCPCS: 36415; 80053; 82397; 87340; 87380

== ENCOUNTER 2024-02-21 18:31 | Emergency (ER) | payer BC, SELFPAY ==
[2024-02-21 19:10] VITALS: BP 139/77; PULSE 91; RESP 18; TEMP 37.3; O2SAT 98; BMI 42.1
[2024-02-21 19:23] LABS: UTC Strep Screen (Rapid) Negative (Negative)
--- NOTE | 2024-02-21 19:46 | EXP.UTC ---
Discharge Plan Disposition Patient Disposition: Home, Self-Care Condition: Good Prescriptions Prescriptions: New amoxicillin 875 mg tablet 875 mg PO Q12H Qty: 20 0RF methylprednisolone 4 mg Tablets,Dose Pack 4 mg PO DIRECTED 6 Days Qty: 21 0RF Rx Instructions: Take 1 pack as directed for 6 days xbjxbehkhuklffj-lxepioirp-BR [Bromfed DM] 2-30-10 mg/5 mL Syrup 5 ml PO Q6H PRN (Reason: Cough) Qty: 240 0RF No Action sertraline 50 mg tablet 50 mg PO DAILY Rx Instructions: TAKE ONE TABLET BY MOUTH ONCE A DAY Referrals Follow up/Referrals: Matthew Lake MD [Primary Care Provider] - See instructions Activity Restrictions/Add. Instructions Additional Instructions/Restrictions: Drink plenty of fluids. Take tylenol or ibuprofen for pain or fever. Take the medications as directed. Follow up with your regular doctor. GO TO THE ER FOR ANY WORSENING SYMPTOMS Clinical Impressions Clinical Impression: Pharyngitis Stand Alone Forms Stand Alone Forms: Work/School Release Instructions Patient Instructions: Sore Throat Print Language Print Language: Montenegrin Discharge ED Provider: Darien Arriola [facility] General Stated complaint: sore thorat joyce Mode of Arrival: Ambulatory Source of Information: Patient Limitations: No Limitations Time Seen by Provider: 02/21/24 19:46 Description of Symptoms (Recalled from Triage Doc. by RN): PATIENT C/O SORE THROAT, CONGESTION, HEADACHE, PRESSURE IN EARS, AND LOSS OF APPETITE SINCE YESTERDAY MORNING HEENT Symptoms (Recalled from RN notes): Yes Resp Symptoms (Recalled from RN notes): No Skin Symptoms (Recalled from RN notes): No MS Symptoms (Recalled from RN notes): No Functional Status (Recalled from RN notes): WNL Related Data Home Medications ?Medication ?Instructions ?Recorded ?Confirmed sertraline 50 mg tablet 50 mg PO DAILY 02/21/24 02/21/24 Previous Rx's ?Medication ?Instructions ?Recorded amoxicillin 875 mg tablet 875 mg PO Q12H #20 tabs 02/21/24 piywfudujqjbqog-codfyazbazmjxyd-ZT 5 ml PO Q6H PRN Cough #240 mL 02/21/24 2 mg-30 mg-10 mg/5 mL oral syrup (Bromfed DM) methylprednisolone 4 mg tablets in 4 mg PO DIRECTED 6 days #21 tabs 02/21/24 a dose pack Allergies Allergy/AdvReac Type Severity Reaction Status Date / Time oxycodone Allergy Verified 02/20/24 15:43 Worker's Comp Is this a Worker's Comp case?: No [facility] Disclaimer: The information contained in this section may have been updated after the patient was seen, as this information can be updated by other users. Medical History Anxiety and depression Surgical History History of cholecystectomy [place] teeth extracted Family History Grandmother Diabetes Grandfather Heart attack Stroke Social History Smoking Status: Never smoker alcohol intake: current alcohol intake frequency: holidays/special occasions only substance use type: denies use current occupational status: other Travel in the last 8 weeks: None household members: spouse housing: house ROS Obtained: Yes All systems reviewed & no additional complaints except as documented Constitutional Constitutional: Reports chills and Reports fever(s) Eyes Eyes: Denies eye discharge ENT Ears, Nose, Mouth, and Throat: Reports as per HPI Cardiovascular Cardiovascular: Denies chest pain Respiratory Respiratory: Denies chest congestion and Reports cough Gastrointestinal Gastrointestingal: Reports nausea; Denies abdominal pain, constipation, cramping, diarrhea or vomiting Musculoskeletal Musculoskeletal: Denies arthralgias Integumentary/Breasts Skin/Breast: Denies rash Neurologic Neurologic: Denies paresthesias Physical Exam General General appearance: alert and in no apparent distress Head Head exam: atraumatic, normocephalic and normal inspection Eye Eye exam: Present normal appearance, PERRL and EOMI ENT ENT exam: Present mucous membranes moist and normal external ear exam Expanded ENT Exam TM/Canal exam: Bilateral TM: erythema and bulging Nose exam: Absent sinus tenderness Mouth exam: Present normal external inspection; Absent drooling Teeth exam: Present normal inspection Throat exam: Present tonsillar erythema, tonsillomegaly and tonsillar exudate Neck Neck exam: Present normal inspection, full ROM and trachea midline; Absent tenderness, meningismus or lymphadenopathy Chest Chest inspection: Present normal inspection and symmetric chest wall rise; Absent tenderness Respiratory Respiratory exam: Present normal lung sounds bilaterally; Absent respiratory distress, wheezes, stridor or accessory muscle use Cardiovascular Cardiovascular exam: Present regular rate and normal rhythm; Absent systolic murmur or diastolic murmur Abdominal Exam Abdominal exam: Present soft and normal bowel sounds; Absent distention, tenderness, guarding, rebound or rigidity Extremities Exam Extremities exam: Present normal inspection and normal capillary refill; Absent calf tenderness Back Exam Back exam: Present normal inspection and full ROM; Absent tenderness, CVA tenderness (R) or CVA tenderness (L) Neurological Exam Neurological exam: Present alert, oriented X3 and CN II-XII intact Psychiatric Psychiatric exam: Present normal affect and normal mood Skin Skin exam: Present warm, dry, intact and normal color Medical Decision Making Medical Records Medical records reviewed: No I reviewed the patient's medical records. Screening: Per USPSTF and CDC recommendations, given the prevalence of disease in our region, it is our hospital?s policy to screen for HIV and viral Hepatitis for all patients aged 18 and over and those with ongoing risk factors. Freddy Inquiry Pt receiving controlled substance: No Vital Signs: 02/21/24 19:10 Temperature 99.2 F Temperature Source Oral Pulse Rate [Left Brachial] 91 H Respiratory Rate 18 Blood Pressure [Left Arm] 139/77 Blood Pressure Mean [Left Arm] 97 Blood Pressure Source [Left Arm] Automatic Cuff Blood Pressure Position [Left Arm] Sitting 02 Sat by Pulse Oximetry 98 Oxygen Delivery Method Room Air Lab Data Lab results reviewed: Yes I reviewed the patient's lab results. Lab Results 02/21/24 19:15: Strep Scn Rapid Clinic Negative Orders (Tests/Meds): ORDERS Category Date Time Status Strep Screen Confirmation Stat Micro 02/21/24 19:15 Received
[2024-02-21 20:15] VITALS: BP 139/77; PULSE 91; RESP 18; TEMP 37.3; O2SAT 98
== END 2024-02-21 20:17 | disposition home or self-care (01) ==
PROVIDERS: Emergency Provider Nurse Practitioner Family; PCP Family Medicine
DX: J02.9 Acute pharyngitis, unspecified (principal); R50.9 Fever, unspecified; R05.9 Cough, unspecified; R09.81 Nasal congestion; R51.9 Headache, unspecified; R63.8 Other symptoms and signs concerning food and fluid intake; H92.03 Otalgia, bilateral
CPT/HCPCS: 87880; 99212; G0381

== ENCOUNTER 2024-04-11 15:45 | Outpatient (CLI) | payer BC, SELFPAY ==
[2024-04-12 10:10] LABS: FSH 5.8 mIU/mL (.); LH 11.9 mIU/mL (.); Progesterone 0.1 ng/mL (.)
== END 2024-04-11 23:59 | disposition home or self-care (01) ==
LOC: LAB 15:46
PROVIDERS: PCP Family Medicine; Visit Provider Obstetrics & Gynecology
DX: N97.0 Female infertility associated with anovulation (principal)
CPT/HCPCS: 36415; 83001; 83002; 84144

== ENCOUNTER 2024-05-16 15:48 | Outpatient (CLI) | payer BC, SELFPAY ==
--- NOTE | 2024-05-16 15:52 | US_ITS ---
PROCEDURE: US TRANSVAGINAL CLINICAL INDICATION: Infertility COMPARISON: CT CT ABDOMEN PELVIS W CON from 04/12/[address] ABDOMEN PELVIS W CON from 06/09/[address] ABDOMEN PELVIS W CON from 06/12/2023 FINDINGS: Transvaginal sonographic images of the pelvis were obtained. UTERUS: 7.3cm x 3.7 cmx 3.6 cm with a combined endometrial thickness of 6.1mm. LEFT OVARY: 2.5 cmx2.7 cmx3.6cm with a volume of 12.9ml. The left ovary appears polycystic with multiple small peripheral follicles. Follicle 1. 0.7 cm Follicle 2. 0.7 cm Follicle 3. 0.77 cm Follicle 4. 0.84 cm Follicle 5. 0.17 cm Follicle 6. 0.76 cm Follicle 7. 0.62 cm. Follicle 8. 0.68 cm Follicle 9. 0.61 cm Follicle 10. 0.58 cm. RIGHT OVARY: 3.5cmx 1.9 cmx2.3cm with a volume of 7.9ml. There are multiple small peripheral follicles consistent with a polycystic ovary. There is a cystic area adjacent to the right ovary that could be part of the ovary or possibly a hydatid of Morgagni. It measures 2.0 cm by 2.4 cm x 1.6 cm. Follicle 1. 1.04 cm. Follicle 2. 1.41 cm Follicle 3. 0.56 cm Follicle 4. 0.60 cm Follicle 5. 0.68 cm Follicle 6. 0.8 cm Follicle 7. 0.72 Follicle 8. 0.51 cm Both ovaries are seen and appear polycystic. Doppler flow to both ovaries are seen. There is no fluid in the cul-de-sac. IMPRESSION: 1. Anteverted uterus normal in shape and size. The endometrium is thin measuring 6.1 mm. 2. Both ovaries are seen and appear polycystic. There are multiple follicles on each ovary. 3. No fluid in the cul-de-sac. Dictated by: Kali Chandra MD 05/16/2024 16:29 Kali Chandra MD in [place] 05/16/2024 16:29
== END 2024-05-16 23:59 | disposition home or self-care (01) ==
LOC: RAD 15:49
PROVIDERS: PCP Family Medicine; Visit Provider Obstetrics & Gynecology
DX: N92.6 Irregular menstruation, unspecified (principal); N97.9 Female infertility, unspecified
CPT/HCPCS: 76830

== ENCOUNTER 2024-05-26 11:59 | Outpatient (CLI) | payer BC, SELFPAY ==
[2024-05-27 11:25] LABS: Progesterone 6.2 ng/mL (.)
== END 2024-05-26 23:59 | disposition home or self-care (01) ==
LOC: LAB 12:01
PROVIDERS: PCP Family Medicine; Visit Provider Obstetrics & Gynecology
DX: N97.0 Female infertility associated with anovulation (principal)
CPT/HCPCS: 84144

== ENCOUNTER 2024-06-18 15:26 | Outpatient (CLI) | payer BC, SELFPAY ==
--- NOTE | 2024-06-18 15:27 | US_ITS ---
PROCEDURE: US TRANSVAGINAL CLINICAL INDICATION: Follicle scan COMPARISON: CT CT ABDOMEN PELVIS W CON from 04/12/[address] ABDOMEN PELVIS W CON from 06/09/[address] ABDOMEN PELVIS W CON from 06/12/2023 US US TRANSVAGINAL from 05/16/2024 FINDINGS: Transvaginal sonographic images of the pelvis were obtained. UTERUS: 7.7 cm x 4.5cmx 3.3cm anteverted with a combined endometrial thickness of 5mm. LEFT OVARY: 3.5 cmx2.2cmx2.4cm with a volume of 9.7ml. The ovary appears polycystic. Follicle 1. 0.70 cm Follicle 2. 0.69 cm Follicle 3. 0.79 cm Follicle 4. 0.84 cm Follicle 5. 0.69 cm Follicle 6. 0.98 cm Follicle 7. 0.92 cm Follicle 8. 0.56 cm Follicle 9. 0.97 cm Follicle 10. 0.95 cm RIGHT OVARY: 2.5 cmx 2.1cmx2.0cm with a volume of 5.7ml. The ovary appears polycystic Follicle 1. 1.08 cm Follicle 2. 1.32 cm Follicle 3. 0.80 cm Follicle 4. 0.74 cm Follicle 5. 0.71 cm Follicle 6. 0.60 cm Follicle 7. 0.50 cm Follicle 8. 1.05 Follicle 9. 0.73 cm Follicle 10. 0.64 cm Both ovaries are seen and appear polycystic. Doppler flow to both ovaries are seen. There is no fluid in the cul-de-sac. IMPRESSION: 1. Anteverted uterus normal in shape and size. The endometrium is thin measuring 5.0 mm. 2. Both ovaries are seen and appear polycystic. The left ovary has 10 follicles and the right ovary has 10 follicles. 3. No fluid in the cul-de-sac. Dictated by: Kali Chandra MD 06/18/2024 16:44 Kali Chandra MD in [place] 06/18/2024 16:44
== END 2024-06-18 23:59 | disposition home or self-care (01) ==
LOC: RAD 15:27
PROVIDERS: PCP Family Medicine; Visit Provider Obstetrics & Gynecology
DX: N97.9 Female infertility, unspecified (principal)
CPT/HCPCS: 76830

== ENCOUNTER 2024-06-25 14:36 | Outpatient (CLI) | payer BC, SELFPAY ==
[2024-06-26 11:42] LABS: Progesterone 0.2 ng/mL (.)
== END 2024-06-25 23:59 | disposition home or self-care (01) ==
LOC: LAB 14:36
PROVIDERS: PCP Family Medicine; Visit Provider Obstetrics & Gynecology
DX: Z31.9 Encounter for procreative management, unspecified (principal)
CPT/HCPCS: 36415; 84144

== ENCOUNTER 2024-10-03 08:15 | Outpatient (CLI) | payer BC, SELFPAY ==
--- OUTSIDE RECORDS SUMMARY | 2023-10-09 09:45 | XMS_ITS ---
Author Organization [facility] Address 1210 [facility] [address] [place] [phone] Care Team Providers Care Dedicated Owner Operator Name Role Phone [place], Matthew Unavailable [phone] Allergies No Known Allergies REASON FOR VISIT jaw hurting and arch of the foot is hurting Medications Medication SIG (Take, Route, Fr equency, Duration) Notes Start Date End Date Status Meloxicam 15 MG 1 tablet Orally Once a day; Duration: 30 day(s) 10/09/2023 Active Zoloft 25 MG 1 tablet Orally Once a day; Duration: 30 day(s) Active Vital Signs Blood pressure systolic 130 mm Hg 10/09/19 24 Blood pressure diastolic 80 mm Hg 024 Heart Rate 78 /min 10/09/2023 Height 66.50 in 10/09/2023 Weight 262.6 lbs 10/09/2023 BMI 41.75 kg/m2 10/09/2023 Encounters Encounter Location Date Provider Diagnosis Laya 1210 [facility] [address] [place] [phone] 10/09/2023 Matthew Lake Arthralgia of right temporomandibular joint M26.621 and Pain in right foot M79.671 Assessments Encounter Date Diagnosis (ICD Code) Assessment Notes Treatment Notes Treatment Clinical Notes Section Notes 10/09/2023 Arthralgia of right temporomandibular joint (ICD-10 - M26.621) Avoid excessive chewing 10/09/2023 Pain in right foot (ICD-10 - M79.671) Powerstep shoe inserts recommended Plan Of Treatment Medication Medication Name Sig Start Date Stop Date Notes Meloxicam 15 MG 1 tablet Orally Once a day; Duration: 30 day(s) 10/09/2023 Treatment Notes Assessment Notes Arthralgia of right temporomandibular maurice int Avoid excessive chewing Pain in right foot Powerstep shoe inser ts recommended Next Appt Details Follow Up: via phone to repo rt progress, Reason: Progress Notes * MACARIO ARMENTANDOB:1995 (29 yo F)Acc No.[id number]:10/09/2023 Progress Notes Patient: DIONICIO DAS Provider: Sis Lake M.D. :1995 A ge:28 Y S ex:Female Date:10/09/2023 Address:[address] [place], [place] [id number] Subjective: * Chief Complaints: * 1 . Jaw hurting and arch of the foot is hurting. * HPI: A nkle/Foot: 28 year old female presents with c/o Pain P t complains of pain in rt foot arch for a couple weeks. States it is a sharp pain in the inside of her foot. Pain is not constant, but does hurt to have weight on it when it happening. P ain: c/o Jaw Pain P t complains of rt upper jaw pain for a couple weeks. States it is not from clenching jaws at night. Pt states pain is constant and at times hurts so bad she cannot talk. * ROS: D ERMATOLOGY: no R deedee. [...] F ather: alive 46 yrs, diagnosed with Stroke, Heart Disease, Cancer. M other: alive 45 yrs, diagnosed [...] Travel ouside [place]: no. * Medications: T aking Zoloft 25 MG Tablet 1 tablet Orally Once a day , Discontinued Hyoscyamine Sulfate 0.125 MG Tablet 1 tablet Orally every 4 hrs as needed , Medication List reviewed and reconciled with the patient * Allergies: N .K.D.A. Objective: * Vitals: W t:262.6, Temp:98.0, BP:130/80, HR:78, Nurse:brian, Ht: 66.50, BMI:41.75. * Examination: G eneral Examination: General Appearance: N AD. H EENT: u nremarkable.?Oral cavity: n o lesions, mucosa moist and WNL, no erythema, no clicking over the TM joint.?Neck: s upple, no lymphadenopathy. E xtremities: n ormal right foot exam. ? Assessment: * Assessment: 1. A rthralgia of right temporomandibular joint - M26.621 (Primary) 2 . P ain in right foot - M79.671 Plan: * Treatment: 2. P ain in right foot Notes: Powerstep shoe inserts recommended * Follow Up: v ia phone to report progress * Images: Billing Information: * Visit Code: 98890 Office Visit, Est Pt., Level 3. * Procedure Codes: * Electronic signature of Melisa Lake MD on 10/03/2024 at 08:17 AM EDT Sign off status: Pending * Provider: Sis Lake M.D. Date: 10/09/2023 Generated for Kristal allen/Shamika/Helene on: 10/03/2024 08:17 AM EDT History and Physical Notes * HPI (History of Present Illness) Category Sub-Category Detail Notes Category Not es Ankle/Foot Pain Pt complains of pain in rt foot arch for a couple weeks. States it is a sharp pain in the inside of her foot. Pain is not constant, but does hurt to have weight on it when it happening Pain Jaw Pain Pt complains of rt upper jaw pain for a couple weeks. States it is not from clenching jaws at night. Pt states pain is constant and at times hurts so bad she cannot talk Examination Category Sub-Category Detail Notes Category Not es General Examination HEENT: unremarkable Extremities: normal right foot ex am General Appearance: NAD Neck: supple, no lymphaden opathy Oral cavity: no lesions, mucosa m oist and WNL, no erythema, no clicking over the TM joint
--- OUTSIDE RECORDS SUMMARY | 2023-11-17 11:30 | XMS_ITS ---
[facility] Address [address] [place] [id number] Care Team Providers Care Classifier Name Role Phone Aleksandra Matthew Unavailable [phone] Allergies No Known Allergies Reason For Referral Reason Will need to find a provider Diagnosis 1 Arthralgia of right temporomandibular joint (M26.621) [facility] Referring Provider First Name Matthew Referring [...] so they can request an appointment online; administrative receptionist said she would be on the lookout [...] W/U Status Risk Notes Problem Morbid obesity (098658055) Morbid obesity (E66.01) Active confirmed Vital Signs Blood pressure systolic 120 mm Hg 11/17/19 24 Blood pressure diastolic 80 mm Hg 024 Heart Rate 109 /min 11/17/2023 Height 66.50 in 11/17/2023 Weight 262.6 lbs 11/17/2023 BMI 41.75 kg/m2 11/17/2023 Encounters Encounter Location Date Provider Diagnosis [facility] [address] [place] [id number] 11/17/2023 Matthew Lake Arthralgia of right temporomandibular [...] Notes * KUMAR ARMENTAALVARADOOB:1995 (29 yo F)Acc No.[id number]:11/17/2023 Progress Notes Patient: DIONICIO DAS Provider: Sis Lake M.D. :1995 A ge:28 Y S ex:Female Date:11/17/2023 Address:[address] [place] [address] [place], [id number] Subjective: * Chief Complaints: * 1 . [...] * Images: Billing Information: * Visit Code: 72746 Office Visit, Est Pt., Level 3. * Procedure Codes: * Electronic signature of Melisa Lake MD on 10/03/2024 at 08:17 AM EDT Sign off status: Pending * Provider: Sis Lake M.D. Date: 0 11/17/2023 Generated for Kristal allen/Shamika/eTryleysmitting on: 0 10/03/2024 08:17 AM EDT History and Physical [...]
--- OUTSIDE RECORDS SUMMARY | 2024-08-08 11:45 | XMS_ITS ---
Author Organization [facility] Address [address] [place] [id number] Care Team Providers Care Loft Worker Head Name Role Phone Matthew Lake Unavailable [phone] Chandrika Person Unavailable [phone] Allergies No Known Allergies Results Component Value Reference Range Notes P-Vitamin B12 Reviewed date:08/14/2024 04:52:54 PM Interpretation:Normal Performing Lab: Notes/Report: Test performed by [facility] [address] [place] [address] , [address], [place] [address] Alphonso Yoo MD, Hse Specialist CLIA: [id number] Vitamin B12 428 874-7623 pg/mL P-Comprehensive Metabolic Pa quin (CMP) Reviewed date:08/14/2024 04:52:05 PM Interpretation:Normal Performing Lab: Notes/Report: Test performed by [facility] [address] [place] [address] , [address], [place] [address] Alphonso Yoo MD, Hse Specialist CLIA: [id number] Sodium 140 135-145 mmol/L Potassium 4.9 3.5-5.3 [...] Interpretation:Normal Performing Lab: Notes/Report: Test performed by [facility] [address] [place] [address] , [address], [place] [address] Alphonso Yoo MD, Hse Specialist CLIA: [id number] TSH reflex to FT4 1.23 0.43-5.25 mU/L Reason For Referral Diagnosis 1 Paresthesia (R20.2) Referral Organization [facility] Referring Provider First Name Chandrika Referring Provider Last Name Naya Referring Provider Speciality Physician Offal Icer Poultry Referred Provider Specialty Podiatry General Notes Chandrika Person 04:01:44 PM >patient needs an appt with Haydee Suarez Brynn 08/09/2024 08:25:18 AM > faxed to [facility] PodiatrHaydee bustamante Brynn 08/09/2024 04:08:49 PM [...] [address] [place] [phone] 08/08/2024 Chandrika Person Paresthesia R20. 2 Assessments Encounter Date Diagnosis (ICD Code) Assessment Notes Treatment Notes Treatment Clinical Notes Section Notes 08/08/2024 Paresthesia (ICD-10 - R20.2) Plan Of Treatment Referrals Referral Date Details 08/08/2024 08/08/2024 Next Appt Details Follow Up: via phone to repo rt test results, Reason: Progress Notes * TAURUS ARMENTAOB:1995 (29 yo F)Acc No.[id number]:08/08/2024 Progress Notes Patient: DIONICIO DAS Provider: LAKHWINDER Wallis :1995 A ge:29 Y S ex:Female Date:08/08/2024 Address:[address] [place] [id number] Subjective: * Chief Complaints: * 1 . [...] Treatment: Value Reference Range V itamin B12 237 352-8004 - pg/mL * Rosaura Fair 08/14/2024 04:5 [...] * Images: Billing Information: * Visit Code: 02227 Office Visit, Est Pt., Level 3. * Procedure Codes: * Electronic signature of LAKHWINDER Lala on 10/03/2024 at 08:17 AM EDT Sign off status: Pending * Provider: LAKHWINDER Wallis Date: 0 08/08/2024 Generated for Kristal allen/Shamika/eTransmitting on: 0 10/03/2024 08:17 AM EDT History [...]
--- OUTSIDE RECORDS SUMMARY | 2024-10-03 08:17 | XMS_ITS | Encounter Summary ---
Author Organization [facility] Address [address] [place] [address] Care Team Providers Care Keypunch Operator Name Role Phone Namita Murdock APRN Primary Care Provider [phone] Chichi Chicas RN Unavailable [phone] Matthew [place] MD Primary Care Provider + [phone] Encounter Details Date Type Department Care Team (Late st Contact Info) Description 10/11/2022 Outside Procedure External Location [address] [place] [address] Pranav Gonzalez MD [address] [place] [address] Social History Tobacco Use Types Packs/Day Years Used Date Smoking Tobacco: Never Smokeless Tobacco: Never Alcohol Use Standard Drinks/Week Comments Yes 0 (1 standard drink = 0.6 oz pur e alcohol) Occasional Humiliation, Afraid, Rape, and Kick questionnair e Answer Date Recorded Within the last year, have y ou been afraid of your partner or ex-partner? No 11/10/2020 Within the last year, have y ou been humiliated or emotionally abused in other ways by your partner or ex-partner? No Within the last year, have y ou been kicked, hit, slapped, or otherwise physically hurt by your partner or ex-partner? No 11/10/2020 Within the last year, have y ou been raped or forced to have any kind of sexual activity by your partner or ex-partner? No 11/10/2020 Social Connection and Isolation Panel Answer Date Recorded In a typical week, how many times do you talk on the phone with family, friends, or neighbors? More than three times a week 11/10/2020 How often do you get togethe r with friends or relatives? Once a week 11/10/2020 How often do you attend chur ch or confucianism services? More than 4 times per year 11/10/2020 Do you belong to any clubs o r organizations such as congregational groups, unions, fraternal or athletic groups, or school groups? No 11/10/2020 How often do you attend meet ings of the clubs or organizations you belong to? Never 11/10/2020 Are you , , di vorced, , never , or living with a partner? Living with partner 11/10/2020 AUDIT-C Answer Date Recorded Q1: How often do you have a drink containing alc ohol? 2-4 times a month 11/10/2020 Q2: How many drinks containi ng alcohol do you have on a typical day when you are drinking? 1 or 2 11/10/2020 Q3: How often do you have si x or more drinks on one occasion? Never 11/10/2020 Overall Financial Resource Strain (CARDIA) Answe r Date Recorded How hard is it for you to pa y for the very basics like food, housing, medical care, and heating? Not hard at all 11/10/2020 PHQ-2 Answer Date Recorded Patient Health Questionnaire-2 Score 0 12/01/2020 [facility] - Occupational Stress Questionnaire Answer Date Recorded Do you feel stress - tense, restless, nervous, or anxious, or unable to sleep at night because your mind is troubled all the time - these days? To some extent 11/10/2020 Exercise Vital Sign Answer Date Recorde d On average, how many days pe r week do you engage in moderate to strenuous exercise (like a brisk walk)? 0 days 11/10/2020 On average, how many minutes do you engage in exercise at this level? 0 min 11/10/2020 Hunger Vital Sign Answer Date Recorded Within the past 12 months, y ou worried that your food would run out before you got the money to buy more. Never true 11/11/19 21 Within the past 12 months, t he food you bought just didn't last and you didn't have money to get more. Never true 11/10/2020 PRAPARE - Transportation Answer Date Re corded In the past 12 months, has l ack of transportation kept you from medical appointments or from getting medications? No 10/19 In the past 12 months, has l ack of transportation kept you from meetings, work, or from getting things needed for daily living? No 11/10/2020 Housing Stability Vital Sign Answer Jorden e Recorded In the last 12 months, was t here a time when you were not able to pay the mortgage or rent on time? No 11/10/2020 Number of Places Lived in the Last Year Not on f ile 11/10/2020 In the last 12 months, was t here a time when you did not have a steady place to sleep or slept in a chcf (including now)? No 11/10/2020 Comments Yes Sex and Gender Information Value Date Recorded Sex Assigned at Not on file Legal Sex Female 6:43 PM EDT Gender Identity Not on file Sexual Orientation Not on file documented as of this encounter Plan of Treatment Not on file documented as of this encounter Procedures Procedure Name Priority Date/Time Associated Diagnosis Comments US ABDOMEN RUQ 10/11/2022 9:54 AM EDT documented in this encounter Results * US Abdomen RUQ (10/11/2022 9:54 AM EDT) Anatomical Region Laterality Modality Gallbladder Ultrasound 10/11/2022 9:54 AM EDT Narrative 10/11/2022 3:12 [place] [address] Name: YANCY ARMENTA Exam Date: 10/11/2022 : 1995 Age 27 Gender: F Physician: Facility: [facility] Facility HSV: Exam: RT UPPER QUADRANT US RIGHT UPPER QUADRANT ULTRASOUND HISTORY: Acute right upper quadrant abdominal pain. PROCEDURE: Sonographic images of the right upper quadrant were performed. FINDINGS: Pancreas is obscured. The liver parenchyma is increased in echogenicity, consistent with steatosis. There are small shadowing stones in the gallbladder. There is no acute cholecystitis. Gallbladder wall is normal in thickness at 2 mm. The common bile duct is normal, measuring 2 mm. Limited images of the right kidney are unremarkable. IMPRESSION: Cholelithiasis without acute cholecystitis. Hepatic steatosis. The films were reviewed, interpreted, and dictated by Dr. Reyes Lowe Transcribed by Sherron Moran PA-C Dictated By: Reyes Parkinson Transcribed By: Reyes Lowe Transcribed On: 10/11/2022 11:05 AM Electronically signed by: Reyes Parkinson 10/11/2022 Thank you for referring YANCY ARMENTA to [facility]. Legally authenticated by DANIELA CEE 2022-10-11 11:05:13 Procedure Note Provider, [facility] - 10/11/2022 [place] [address] Name: YANCY ARMENTA Exam Date: 10/11/2022 : 1995 Age 27 Gender: F Physician: Facility: [facility] Facility HSV: Exam: RT UPPER QUADRANT US RIGHT UPPER QUADRANT ULTRASOUND HISTORY: Acute right upper quadrant abdominal pain. PROCEDURE: Sonographic images of the right upper quadrant wereperformed. FINDINGS: Pancreas is obscured. The liver parenchyma is increased in echogenicity, consistent with steatosis. There are small shadowing stonesin the gallbladder. There is no acute cholecystitis. Gallbladder wall isnormal in thickness at 2 mm. The common bile duct is normal, measuring 2 mm.Limited images of the right kidney are unremarkable. IMPRESSION: Cholelithiasis without acute cholecystitis. Hepatic steatosis. The films were reviewed, interpreted, and dictated by Dr. Reyes Finley Transcribed by Sherron Moran PA-C Dictated By: Reyes Parkinson Transcribed By: Reyes Lowe Transcribed On: 10/11/2022 11:05 AM Electronically signed by: Reyes Parkinson 10/11/2022 Thank you for referring YANCY ARMENTA to [facility]. Legally authenticated by DANIELA CEE 2022-10-11 11:05:13 us Pranav Gonzalez MD IMG US PROCEDURES Final Result documented in this encounter Visit Diagnoses Not on filedocumented in this encounter Additional Health Concerns Assessment Noted Time A fall risk assessment has been complete d for the patient 05/25/2022 10:09 AM EST A Body Mass Index follow-up plan has been documented for the patient 07/22/2022 4:26 PM EDT documented as of this encounter Care Teams Keypunch Operator Relationship Specialty Start Date End Date Namita Murdock APRN [address] [place] [address] PCP - General Family Medicine 03/02/22 08/30/23 Matthew [place] MD [facility] [address] [address] PCP - General 08/31/23 Chichi Chicas RN [address] [id number] [facility] 01/11/23 11/29/23 documented as of this encounter
--- OUTSIDE RECORDS SUMMARY | 2024-10-03 08:17 | XMS_ITS | Patient Health Record ---
Author Organization [facility] Address [address] [place] [id number] Care Team Providers Care Director Stars Name Role Phone Matthew Lake Unavailable [phone] Chandrika Person Unavailable [phone] Allergies No Known Allergies Results Component Value Reference Range Notes P-Vitamin B12 Reviewed date:08/14/2024 04:52:54 PM Interpretation:Normal Performing Lab: Notes/Report: Test performed by [facility] [address] [place] [address] , [address], [place] [address] Alphonso Yoo MD, [place] CLIA: [id number] Vitamin B12 375 605-2700 pg/mL P-Comprehensive Metabolic Pa quin (CMP) Reviewed date:08/14/2024 04:52:05 PM Interpretation:Normal Performing Lab: Notes/Report: Test performed by [facility] [address] [place] [address] , [address], [place] [address] Alphonso Yoo MD, [place] CLIA: [id number] Sodium 140 135-145 mmol/L Potassium 4.9 3.5-5.3 [...] Interpretation:Normal Performing Lab: Notes/Report: Test performed by [facility] [address] , [address], [place] [address] Alphonso Yoo MD, [place] CLIA: [id number] TSH reflex to FT4 1.23 0.43-5.25 mU/L Reason For Referral Reason Will need to find a provider Diagnosis 1 Arthralgia of right temporomandibular joint (M26.621) [facility] Referring Provider First Name Matthew Referring Provider Last Name Aleksandra Referring Provider Speciality Family Pra ctice Referred Provider Oral surgery, . Referred Provider Specialty Oral Surgery General Notes Jeni Hubbard 11/17/19 3:39:14 PM > Dr. Yusuf , Jeni Hubbard 11/21/2023 10:40:43 AM > spoke with Dr. Yusuf office; instructed to give the patient the website so they can request an appointment online; receptionist airline lounge said she would be on the lookout for the request Referral Priority Routine Diagnosis 1 Paresthesia (R20.2) [facility] Referring Provider First Name Chandrika Referring Provider Last Name Naya Referring Provider Speciality Physician Chief Security Officer Referred Provider Specialty Podiatry General Notes Chandrika Person 04:01:44 PM >patient needs an appt with Haydee Suarez Brynn 08/09/2024 08:25:18 AM > fax[facility] to [facility] PodiatryHaydee Brynn 08/09/2024 04:08:49 PM > 09/10/2024 at 08:30am Referral Priority Routine Immunizations Vaccine Route Administration Date Status Comme nts Fluzone PF Quad (6-35 months) Unknown 08/05/2022 Admini stered Fluzone PF Quad (6-35 months) Unknown 12/05/2022 Admini stered Fluzone PF Quad (6-35 months) Unknown 12/05/2022 Admini stered Tetanus Tdap-Adacel (over 7yrs) Unknown 12/29/2022 Admi nistered Problems Problem Type SNOMED Code ICD Code Onset Dates Problem Status W/U Status Risk Notes Problem Morbid obesity (595599470) Morbid obesity (E66.01) Active confirmed Problem Paresthesia (93236993) Paresthesia (R20.2) Active confirmed Vital Signs Heart Rate 96 /min 08/08/2024 Blood pressure diastolic 24 mm Hg 08/08/2024 Height 66.50 in 08/08/2024 Blood pressure systolic 120 mm Hg 08/08/2024 Weight 266.2 lbs 08/08/2024 BMI 42.32 kg/m2 08/08/2024 Encounters Encounter Location Date Provider Diagnosis [facility] [address] [facility] [address] [place], [place] [id number] 10/09/2023 Matthew Monroe Arthralgia of right temporomandibular joint M26.621 and Pain in right foot M79.671 [facility] [address] [facility] [address] [place], [place] [id number] 11/17/2023 Matthew Monroe Arthralgia of right temporomandibular joint M26.621 and Morbid obesity E66.01 [facility] [address] [facility] [address] [place], [place] [id number] 08/08/2024 Chandrika Crowdy Paresthesia R20.2 [facility] [address] [facility] [address] [place], [place] [id number] 01/31/2024 Matthew [place] Assessments Encounter Date Diagnosis (ICD Code) Assessment Notes Treatment Notes Treatment Clinical Notes Section Notes 10/09/2023 Pain in right foot (ICD-10 - M79.671) Powerstep shoe inserts recommended 10/09/2023 Arthralgia of right temporomandibular joint (ICD-10 - M26.621) Avoid excessive chewing 11/17/2023 Morbid obesity (ICD-10 - E66.01) 11/17/2023 Arthralgia of right temporomandibular joint (ICD-10 - M26.621) 08/08/2024 Paresthesia (ICD-10 - R20.2) Plan Of Treatment Pending Test Test Name Order Date Ultrasound : Right Upper Quadrant 2023 Insurance Providers Payer Name Payer Address Payer Phone Subscriber Number Group Number Insured Name Patient Relationship to Insured Coverage Start Date Coverage End Date [employer]EV[employer] [address] [place] [address] [id number] [facility] DIONICIO ARMENTA Self - patient is the insured Medical (General) History Medical History History ICD Code Allergic Rhinitis Depression Surgical History Surgery Date(Month/Year) [place] Teeth 2010
--- OUTSIDE RECORDS SUMMARY | 2024-10-03 08:18 | XMS_ITS | Data Portability ---
Author Organization [place] [facility] [place] [facility] Address [address] [place] [id number] Care Team Providers Care Warehouse Stocker Name Role Phone CAMILA WALKER Primary Care Provider Assessment No assessment recorded. Plan of Treatment Reminders Order Date Submit Date Provider Last Modified By Organization Details Last Modified Time Details Appointments None recorded. Lab None recorded. Referral None recorded. Procedures None recorded. Surgeries None recorded. Imaging US, echocardio gram, transthora cic, complete, w/ color flow [address] (Centralized Scheduling), [address] [place], [address], 11:00:29 CT, angiogram, chest, w/ contrast 2021 [facility] (Centralized Scheduling), [address] [place], [address], 10:05:31 Medication Orders None recorded. Patient TargetsNo targets recorded. Patient InstructionsNo instructions recorded. Reason for Referral None Reported. Results Created Date Observation Date Name Description Value Unit Range Abnormal Flag Note LastModifiedBy Organization Detail LastModifiedTime 02/09/2001/31/2022 susan andino amelías ECG, 12 leads min No observ ation record ed. BARCODE Not Available 2021 16:05:16 02/17/2002/16/2022 CT, angio gram, chest , w/ contr ast CC'ed Logic: Orderi ng Provid er: SAMIR CALDWELL Attend ing Provid er: SAMIR CALDWELL Referr ing Provid er: SAMIR CALDWELL Admitt ing Provid er: SAMIR CALDWELL [facility] [address], [place], [address], 03/24/2022 14:06:46 Result Notes Documentation Provider Name and Address Organization Details Recorded Time Ct, Angiogram, Chest, W/ Contrast : CC'ed Logic: Ordering Provider: SAMIR CALDWELL Attending Provider: SAMIR CALDWELL Referring Provider: SAMIR CALDWELL Admitting Provider: SAMIR serrano [place] - [facility] & [place] 03/24/2022 14:06:46 Problems Name Problem SNOMED Code Status Onset Date Resolution Date Notes Provider Name and Address Organization Details Recorded Time Cardiomegaly 2162634 Active 2021 [place] Portillo - [facility] & [place] 2 10:53:17 Elevated blood-pressur e reading without diagnosis of hypertension 331558817 Active 2021 Jensen Henao MD [address], [place], [address] [facility] [place] 2 11:19:51 Problem Notes None recorded. Medical Equipment None Reported. Allergies No known drug allergies Medications Name Sig Start Date Stop Date Status Note LastModified by Organization Details LastModified Time clomiphene citrate 50 mg tablet active Not Available Not Available Not Available norethindrone 1 mg-ethinyl estradiol 20 mcg (21)-iron 75 mg (7) tablet 02/04 completed Not Available Not Available Not Available naproxen sodium 550 mg tablet active Not Available Not Available Not Available ergocalcifero l (vitamin D2) 1,250 mcg (50,000 unit) capsule active Not Available Not Available Not Available cyclobenzapri ne 5 mg tablet active Not Available Not Available Not Available Eliquis 5 mg tablet take one tablet twice daily active Not Available Not Available No t Available Vitals Date Recorded Body height Body mass index (BMI) Provider Name and Address Organization Details Last Updated DateTime 02/04/2022 177.8 cm 36.9 kg/m2 Jensen Henao MD [address], [place], [address], [facility] & [place] 02/04/2022 11:19:31 Date Recorded Body weight Oxygen saturation Oxygen saturation in Arterial blood by Pulse oximetry Heart rate Systolic And Diastolic Provider Name and Address Organization Details Last Updated DateTime 2 815028. 24 g 98 % 98 % 97 /min 144/81 mm[Hg] Katya Owens [place] - [facility] & [place] 2 11:06:31 Social History None recorded. Functional Status Question Answer Note LastModified by Organizat ion Details LastModified Time Do you use any illicit or recreational drugs? No Information not available 02/04/2022 What is your level of alcohol consumption? Occasional Information not available 02/04/2022 Mental Status None recorded. Family History Nothing Reported Notes:grandparents hx of AR, HTN Medical History No medical history recorded. Gynecological HistoryNo gynecological history recorded. Obstetrics History GPAL:G 0 P 0 0 0 0 Past Encounters Encounter ID Performer Location Encounter Start Date Encounter Closed Date Diagnosis/Indication Diagnosis SNOMED-CT Code Diagnosis ICD10 Code Diagnosis Note [id number] Jensen Henao MD [facility] [address] [place] [address] 02/04/2022 10:46:37 02/04/2022 11:15:40 Cardiomegaly 1039684 I51.7 noted on CTA. she is asymptomat ic , denies any chest pain or heart failure symptoms.W ill obtain echo for for further evaluation Elevated blood-pressure reading without diagnosis of hypertension 650848330 R03.0 Keep log Low-salt diet < 2 gm Na/day, Regular exercise Weight loss Body mass index 30+ - obesity 914772132 Z68.36 Low-carboh ydrate and low-fat diet Increase exercise to 30 minutes a day. Increase fruits and fresh vegetable intake and decrease processed foods and sugars History of pulmonary embolus 322937714 Z86.711 possible small pulmonary embolism noted on CTA but this was of poor quality study. Discussed with radiology will repeat CTA. Continue with Eliquis for now. Health Concerns Section Related Observation LastModified by Organization Detai ls LastModified Time None Recorded Concern Status LastModified by Organization Details LastModified Time None Recorded Advance Directives Directive None Recorded Payers Insurance Date Sequence Insurance Name Policy Number Policy Weinstein Covered Member ID Weinstein Member ID Guarantor Name 02/04/2022 1 [employer]-[place]: STEVEN [employer] [place] [id number] Yancy Magallon [id number] Notes Date Note Type Note Provider Name and Address Organization Details Recorded Time 02/04/2022 text/html 26-year-old fema le here for evaluation of cardiomegaly noted on CTA. She was seen in the ER with shoulder pain and had a CTA which was reported as cardiomegaly hence referred to me for further evaluation. The patient has no prior cardiac history. She is generally active.No specific cardiovascular complaints today. No chest pain, shortness of breath, PND, orthopnea, peripheral edema, palpitations, presyncope, syncope.blood pressure high today, no prior diagnosis+ obese BMI over 36she is undergoing fertility treatment with OB CTA 01/31/22: small segmental left filling defect possible PE. Spoke to Radiology personally they are unable r/o small PE, the ER discharge her on 1 month of anticoagulation. Records from the ER reviewed including ECG which is personally reviewed from 01/31/2022: Sinus tachycardia rate of 107 normal axis normal intervals nonspecific T-wave inversions in lead 3labs 01/31/2022 BUN/creatinine 16/0.6, LFTs normal, hemoglobin/ hematocrit 13/42, platelets 296+ Fam Hx: GD 50's Jensen Henao MD [address] [facility], [place], [address], [facility] & [place] 02/04/2022 13:59:04 OBGyn Episode No OBEpisode recorded.
--- OUTSIDE RECORDS SUMMARY | 2024-10-03 08:18 | XMS_ITS | Clinical Summary ---
Author Organization [facility] Address [address] [place] [address] Care Team Providers Care Skiing Teacher Name Role Phone Matthew Lake MD Primary Care Provider [phone] Allergies Active Allergy Reactions Criticality Noted Date Comments Oxycodone Rash Low 06/13/2023 Pt developed rash at OSH on [facility]UE after taking oxycodone Medications sertraline (Zoloft) 25 MG tablet Take 1 tablet (25 mg) by mouth 1 (one) time each day. Active acetaminophen (Tylenol) 500 MG tablet Take 2 tablets (1,000 mg) by mouth every 6 (six) hours. 100 tablet 4 Active methocarbamol (Robaxin) 500 MG tablet Take 1 tablet (500 mg) by mouth 4 (four) times a day. 10 tablet 4 Active ondansetron ODT (Zofran-ODT) 4 MG disintegrating tablet Take 1 tablet (4 mg) by mouth every 8 (eight) hours if needed for nausea or vomiting. 20 tablet 4 Active ibuprofen 400 MG tablet Take 1 tablet (400 mg) by mouth every 6 (six) hours if needed for mild pain. 20 tablet 4 Active senna-docusate (Karlene-Colace) 8.6-50 MG tablet Take 1 tablet by mouth 1 (one) time each day. 30 tablet 4 Active naloxone (Kloxxado) 8 mg/0.1 mL nasal spray 1. Give 1 spray in nostril for no/slow breathing or cannot wake after opioid use 2. Call 911 3. Repeat in other nostril if symptoms continue 1 each 4 Active ondansetron ODT (Zofran-ODT) 4 MG disintegrating tablet Take 1 tablet (4 mg) by mouth every 8 (eight) hours if needed for nausea or vomiting. 20 tablet 4 Active traMADol (Ultram) 50 MG tablet Take 1 tablet (50 mg) by mouth every 6 (six) hours if needed for severe pain (Take two 50mg tablets as needed every 6 hours). 24 tablet 4 Active Active Problems Problem Noted Date Diagnosed Date Choledocholithiasis 06/09/2023 Morbid obesity with body mass index (BMI) of 40. 0 or higher 12/15/2021 Encounter for initial prescription of contracept fidelina pills 12/07/2020 Resolved Problems Problem Noted Date Diagnosed Date Resolved Date Postoperative abdominal pain 06/13/2023 06/16/2023 Leukocytosis 06/13/2023 06/16/2023 Overview (06/13/2023): Trend Intraabdominal fluid collection 06/13/2023 06/16/2023 Overview (06/13/2023): Without organization HIDA to rule out bile leak Transaminasemia 06/13/2023 06/16/2023 Overview (06/13/2023): Trend AST normalized, ALT uptrending Clinically insignificant at this time Immunizations Immunization Administration Dates Next Due Influenza, injectable, quadrivalent, preservativ e free 12/05/2022,08/05/2022 Rsv, Bivalent, Protein Subun it Rsvpref, Diluent Reconstituted, 0.5mL, PF 02/21/2023 Tdap 12/29/2022 Family History Medical History Relation Name Comments No Known Problems Father Heart disease Father's Brother Lung cancer Maternal Grandfather Diabetes Maternal Grandmother Anxiety and depression Mother No Known Problems Mother's Brother Blood clots Paternal Grandfather Stroke Paternal Grandfather Skin cancer Paternal Grandmother Anxiety and depression Sister Relation Name Status Comments Father Alive Father's Brother Alive Father's Sister Alive Maternal Grandfather Maternal Grandmother Alive Mother Alive Mother's Brother Alive Other Paternal Grandfather Alive Paternal Grandmother Alive Sister Alive Social History Tobacco Use Types Packs/Day Years Used Date Smoking Tobacco: Never Smokeless Tobacco: Never Tobacco Cessation:Counseling Given: Not Answered Alcohol Use Standard Drinks/Week Comments Yes 0 (1 standard drink = 0.6 oz pur e alcohol) Occasional Humiliation, Afraid, Rape, and Kick questionnair e Answer Date Recorded Within the last year, have y ou been afraid of your partner or ex-partner? No 06/14/2023 Within the last year, have y ou been humiliated or emotionally abused in other ways by your partner or ex-partner? No Within the last year, have y ou been kicked, hit, slapped, or otherwise physically hurt by your partner or ex-partner? No 06/14/2023 Within the last year, have y ou been raped or forced to have any kind of sexual activity by your partner or ex-partner? No 06/14/2023 Social Connection and Isolation Panel Answer Date Recorded In a typical week, how many times do you talk on the phone with family, friends, or neighbors? Three times a week 06/14/2023 How often do you get togethe r with friends or relatives? Once a week 06/14/2023 How often do you attend chur ch or spiritism services? Never 06/14/2023 Do you belong to any clubs o r organizations such as faith groups, unions, fraternal or athletic groups, or school groups? No 06/14/2023 How often do you attend meet ings of the clubs or organizations you belong to? Never 06/14/2023 Are you , , di vorced, , never , or living with a partner? 06/14/2023 AUDIT-C Answer Date Recorded Q1: How often do you have a drink containing alc ohol? Monthly or less 06/14/2023 Q2: How many drinks containi ng alcohol do you have on a typical day when you are drinking? 1 or 2 06/14/2023 Q3: How often do you have si x or more drinks on one occasion? Never 06/14/2023 Overall Financial Resource Strain (CARDIA) Answe r Date Recorded How hard is it for you to pa y for the very basics like food, housing, medical care, and heating? Not hard at all 11/10/2020 PHQ-2 Answer Date Recorded Patient Health Questionnaire-2 Score 0 03/07/2023 [facility] - Occupational Stress Questionnaire Answer Date Recorded Do you feel stress - tense, restless, nervous, or anxious, or unable to sleep at night because your mind is troubled all the time - these days? Not at all 06/14/2023 Exercise Vital Sign Answer Date Recorde d On average, how many days pe r week do you engage in moderate to strenuous exercise (like a brisk walk)? 0 days 06/14/2023 On average, how many minutes do you engage in exercise at this level? 0 min 06/14/2023 Hunger Vital Sign Answer Date Recorded Within the past 12 months, y ou worried that your food would run out before you got the money to buy more. Never true 06/14/19 24 Within the past 12 months, t he food you bought just didn't last and you didn't have money to get more. Never true 06/14/2023 PRAPARE - Transportation Answer Date Re corded In the past 12 months, has l ack of transportation kept you from medical appointments or from getting medications? No 05/19 In the past 12 months, has l ack of transportation kept you from meetings, work, or from getting things needed for daily living? No 06/14/2023 Housing Stability Vital Sign Answer Jorden e Recorded In the last 12 months, was t here a time when you were not able to pay the mortgage or rent on time? No 06/14/2023 Number of Places Lived in the Last Year Not on f ile 06/14/2023 In the last 12 months, was t here a time when you did not have a steady place to sleep or slept in a prison (including now)? No 06/14/2023 Harlem Depression Scale Answer Date Recorded Har[place] Depression Scale Total 0 04/10/2023 The thought of harming myself has occurred to me . Never 04/10/2023 CAGE ASSESSMENT Answer Date Recorded Due to the following: Medical status 06/14/2023 Maximum number of drinks you had on a given occasion in the last month? 0 drinks 06/14/2023 How many alcoholic Beverages do you typically drink in a week? 0 - 7 per week 06/14/2023 Have you ever felt you should CUT down on your d rinking? 0 06/14/2023 Have you been ANNOYED by peo ple criticizing your drinking? 0 06/14/2023 Have you felt GUILTY about your drinking? 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 0 06/14/2023 CAGE Questionnaire Score 0 024 Utilities Answer Date Recorded In the past 12 months has th e ZANY [employer], gas, oil, or water Legal Shine threatened to shut off services in your home? No 06/14/2023 PHQ-2A Answer Date Recorded Patient Health Questionnaire-2 Score 0 02/02/2023 Comments No Sex and Gender Information Value Date Recorded Sex Assigned at Not on file Legal Sex Female 6:43 PM EDT Gender Identity Not on file Sexual Orientation Not on file Last Filed Vital Signs Vital Sign Reading Time Taken Comments Blood Pressure 141/79 08/31/2023 12:30 PM EDT Pulse 80 08/31/2023 12:30 PM EDT Temperature 36.7 C (98 F) 08/31/2023 12:30 PM EDT Respiratory Rate 21 08/31/2023 12:30 PM EDT Oxygen Saturation 100% 08/31/2023 12:30 PM EDT Inhaled Oxygen Concentration - - Weight 116 kg (256 lb 2.8 oz) 08/31/2023 9:15 AM EDT Height 170.2 cm (5' 7.01 ) 08/31/2023 9:35 AM ED T Body Mass Index 40.11 08/31/2023 9:15 AM EDT Plan of Treatment Health Maintenance Due Date Last Done Comments [facility]-Infant/Child/Adol SDOH Screenings 1994 [facility]-Varicella Vaccines (1 of 2 - 13+ 2-dose series) 2007 HPV Vaccines (1 - 3-dose series) 2009 [facility]- SDOH Screenings 02/08/2012 [facility]-Adult SDOH Screenings 02/08/2012 [facility]-Hepatitis B Vaccines (1 of 3 - 19+ 3-dose series) 2013 [facility]-PNOGY-36 Vaccine (2023- season) 2023 [facility]-Depression Screening 04/10/2024 04/10/2023, 02/17 [facility]-Influenza Vaccine (#1) 2024 12/05/2022, [facility]-Pap Smear 12/15/2024 12/15/2021, 12/07/2020 [facility]-Cervical Cancer Screening 12/15/2026 [facility]-HPV/Cotest 12/15/2026 12/15/2021, 12/07/2020 [facility]-DTaP,Tdap,and Td Vaccines (2 - Td or Tdap) 12/29/2032 12/29/2022 [facility]-Zoster Vaccines (1 of 2) 02/08/2044 [facility]-HIV Screening Completed 08/05/2022 [facility]-Hepatitis C Screening Completed 08/05/2022 [facility]-RSV Vaccine: 60+ Years or Discontinued 02/21/2023 [facility]-Obesity Intervention Completed 024, 06/09/2023, 04/10/2023, Additional history exists [facility]-HIB Vaccines Aged Out No longer e ligible based on patient's age to complete this topic [facility]-Hepatitis A Vaccines Aged Out No longer eligible based on patient's age to complete this topic [facility]-IPV Vaccines Aged Out No longer e ligible based on patient's age to complete this topic [facility]-Pneumococcal Vaccine: Pediatrics (0 to 5 Years) and At-Risk Patients (6 to 49 Years) Aged Out No longer eligible based on patient's age to complete this topic [facility]-Rotavirus Vaccines Aged Out No lo nger eligible based on patient's age to complete this topic Medical Devices Implanted Type Area Business Mgr Device Identifier Shelf Expiration Date Model / Serial / Lot Stent Zimlevi 7fr X 7cm - [id number] Implanted:Qty: 1 on 06/15/2023 by Danae Hall RN at [id number] 02/24/2026 [id number] / / [id number] Procedures Procedure Name Priority Date/Time Associated Diagnosis Comments HEPATITIS C ANTIBODY W/REFLEX TO HCV QUANT PCR Routine 08/05/2022 3:14 PM EDT Unsure of LMP (last menstrual period) as reason for ultrasound scan HIV 1/2 ANTIBODY/ANTIGEN SCREEN WITH REFLEX TO HIV I/II DIFFERENTIATION Routine 08/05/2022 3:14 PM EDT Unsure of LMP (last menstrual period) as reason for ultrasound scan PAP TEST - CYTOLOGY Routine 12/15/2021 5 :12 PM EDT Pap smear abnormality of vagina with LGSIL from Last 3 Months or Most Recently Relevant to Health Maintenance Results * HIV 1 & 2 Antibody/Antigen Screen (08/05/2022 3:14 PM EDT) HIV 1 & 2 Antibody/Antigen Screen Non Reactive Non Reactive 08/05/2022 7:03 PM EDT [facility] Comment:Screening for HIV 1 & 2 antibodies, and P24 antigen is NONREACTIVE. No confirmatory testing is required. Blood Venous blood specimen / Unknown Venipuncture / Unknown 08/05/2022 3:14 PM EDT 08/05/2022 6:30 PM EDT us Pranav Gonzalez MD LAB BLOOD ORDERABLES Final Resu lt Performing Organization Address City/[facility] Co de Phone Number [facility] [address] [place] [address] * Hepatitis C Antibody (08/05/2022 3:14 PM EDT) Hepatitis C Antibody Negative Negative 08/05/2022 7:09 PM EDT [facility] Blood Venous blood specimen / Unknown Venipuncture / Unknown 08/05/2022 3:14 PM EDT 08/05/2022 6:30 PM EDT us Pranav Gonzalez MD LAB BLOOD ORDERABLES Final Resu lt Performing Organization Address City/[facility] Co de Phone Number [facility] [address] [place] [address] * (ABNORMAL) Pap Test (12/15/2021 5:12 PM EDT) Case Report Cytology Case: [id number] Authorizing Provider: Esha Vogt APRN, Collected: 12/15/2021 1712 CNM Ordering Location: Obstetrics & Gynecology Received: 12/17/2021 0945 First Screen: Rosina Julio Pathologist: Erika Briggs MD Specimen: ThinPrep Pap Test, Liquid-Based Cervical/Vaginal, CERVICAL/VAGINAL 12/21/2021 4:18 PM EDT [facility] Interpretation LOW GRADE SQUAMOUS INTRAEPITHELIAL LESION (LSIL)(A) 12/21/2021 4:18 PM EDT [facility] at 1618 EDT Specimen Adequacy Satisfactory for evaluation; endocervical/michael sformation zone component present. Slide scanned and imaged by ThinPrep Imaging System with manual review of all selected sanchez. 12/21/2021 4:18 PM EDT [facility] Cervical cytology is a screening test primarily for squamous cancers and precursors and has associated false negative and positive results. New technologies such as liquid based sampling may decrease but will not eliminate all false negative results. Regular screening and follow-up of unexplained clinical signs and symptoms are recommended to minimize false negative results. Please see the ASCCP website (www.asccp.org)fo r followup recommendations. If HPV testing was requested, correlation with the results is suggested (please call Microbiology at [phone] for results). 12/21/2021 4:18 PM EDT [facility] Menstrual Status Cyclic 12/22/19 4:18 PM EDT [facility] Contraceptive History Not Applicable 12/21/2021 4:18 PM EDT [facility] Screening Type Previous or Suspected Abnormality 12/21/2021 4:18 PM EDT [facility] HPV Testing Requested? Request HPV Testing Regardless of Pap Test Findings 12/21/2021 4:18 PM EDT [facility] Infection History Human Papillomavirus 12/21/2021 4:18 PM EDT [facility] Previous Cancer History No 12/21/2021 4:18 PM EDT [facility] Previous or Suspected Abnormality Previous Abnormal Pap 12/21/2021 4:18 PM EDT [facility] Clinical Information R87.622 - Pap smear abnormality of vagina with LGSIL [ICD-10-CM] 12/21/2021 4:18 PM EDT [facility] Last Menstrual Period 11/26/2021 12/21/2021 4:18 PM EDT [facility] Swab Vaginal and cervical cytologic material / Unknown Non-blood Collection / Unknown 12/15/2021 5:12 PM EDT 12/17/2021 9:45 AM EDT Esha Martha Vogt APRN, CNM LAB CYTOLOGY ORDERA BLES Final Result Performing Organization Address City/State/[facility] Co de Phone Number [facility] [address] [place] [phone] from Last 3 Months or Most Recently Relevant to [place] [address] [place] [address] STEVEN Member Subscriber Plan / Payer (Ef fective 2020-Present) Name:Yancy Magallon Relation to Subscriber:Self Name:Yancy Magallon Payer ID:[id number] (NAIC) Type:Not on file Address: [address] [place] [address] STEVEN Member Subscriber Plan / Payer (Ef fective 2020-Present) Name:Yancy Magallon Relation to Subscriber:Self Name:Yancy Magallon Payer ID:[id number] (NAIC) Type:Not on file Address: [facility] [id number] [address] Advance Directives * Full Code (Latest Code Status on File) Date Activated Date Inactivated Comments 06/13/2023 5:42 AM 06/16/2023 7:08 PM Question Answer Comments Patient has decision-making capacity? Yes * Full Code Date Activated Date Inactivated Comments 06/09/2023 10:31 AM 06/11/2023 5:37 PM Question Answer Comments Patient has decision-making capacity? Yes Care Teams Skiing Teacher Relationship Specialty Start Date End Date Matthew Lake MD [address] [place] [address] PCP - General 08/31/23
--- OUTSIDE RECORDS SUMMARY | 2024-10-03 08:18 | XMS_ITS | Encounter Summary ---
Author Organization Healthcare Address [address] [place] [address] Care Team Providers Care Brazer Electronic Name Role Phone Regina Sorensen MD Primary Care Provider [phone] Namita Murdock APRN Primary Care Provider [phone] Chichi Chicas RN Unavailable [phone] Matthew Lake MD Primary Care Provider + [phone] Encounter Details Date Type Department Care Team (Late st Contact Info) Description 01/31/2022 Outside Procedure External Location [address] [place] [address] Provider, Jocelyne Mendez Social History Tobacco Use Types Packs/Day Years [...] 11/10/2020 How often do you attend chur or pentecostalism services? More than 4 times per year 11/10/2020 Do you belong to any clubs o r organizations such as taoist groups, unions, fraternal or athletic groups, or [...] Recorded Patient Health Questionnaire-2 Score 0 12/01/2020 [facility] - Occupational Stress Questionnaire Answer Date Recorded [...] place to sleep or slept in a fpc (including now)? No 11/10/2020 Comments No Sex and Gender Information Value Date Recorded Sex Assigned at Not on file Legal Sex Female 6:43 PM EDT Gender Identity Not on file Sexual Orientation Not on file COVID-19 Exposure Response Date Recorded In the last 10 days, have yo u been in contact with someone who was confirmed or suspected to have Coronavirus/COVID-19? No / Unsure 01/13/2022 10:43 PM EDT documented as of this encounter Plan of Treatment Not on file documented as of this encounter Procedures Procedure Name Priority Date/Time Associated Diagnosis Comments CT ANGIO CHEST 01/31/2022 12:53 PM EST documented in this encounter Results * CT Angio Chest (01/31/2022 12:53 PM EST) Anatomical Region Laterality Modality Chest Computed Tomogra phy 01/31/2022 12:5 3 PM EST Generic Cordell Provider IMG CT PROCEDURES Fi nal Result documented in this encounter Visit Diagnoses Not on filedocumented in this encounter Care Teams Brazer Electronic Relationship Specialty Start Date End Date Regina Sorensen MD [address] [place] [address] KULDEEP Mendez [id number] PCP - General 07/31/20 03/01/22 Namita Murdock APRN [address] [place] [id number] PCP - General Family Medicine 03/02/22 08/30/23 Matthew Lake MD [address] [facility] [address] [place] [address] PCP - General 08/31/23 Chichi Chicas RN [address] [phone] Meter Maker Internal Medicine 01/11/23 11/29/23 documented as of this encounter
[2024-10-04 08:19] LABS: FSH 4.4 mIU/mL (.); LH 3.8 mIU/mL (.)
== END 2024-10-03 23:59 | disposition home or self-care (01) ==
LOC: LAB 08:15
PROVIDERS: PCP Family Medicine; Visit Provider Obstetrics & Gynecology
DX: E28.2 Polycystic ovarian syndrome (principal); N97.0 Female infertility associated with anovulation; E66.9 Obesity, unspecified
CPT/HCPCS: 36415; 83001; 83002; 84144

== ENCOUNTER 2024-10-14 15:11 | Outpatient (CLI) | payer BC, SELFPAY ==
--- OUTSIDE RECORDS SUMMARY | 2023-10-09 09:45 | XMS_ITS ---
Author Organization Laya Address 1210 [facility] [address] [place] [phone] Care Team Providers Care Die Assembler Name Role Phone [place], Matthew Unavailable [phone] Allergies No Known Allergies REASON FOR VISIT [...] Encounter Location Date Provider Diagnosis Laya 1210 [facility] [address] [place] [phone] 10/09/2023 Matthew Lake Arthralgia of right temporomandibular [...] Notes * MACARIO ARMENTANDOB:1995 (29 yo F)Acc No.[id number]:10/09/2023 Progress Notes Patient: DIONICIO DAS Provider: Sis Lake M.D. :1995 A ge:28 Y S ex:Female Date:10/09/2023 Address:[address] [place], [place] [phone] Subjective: * Chief Complaints: * 1 . [...] * Images: Billing Information: * Visit Code: 25259 Office Visit, Est Pt., Level 3. * Procedure Codes: * Electronic signature of Melisa Lake MD on 10/14/2024 at 03:13 PM EDT Sign off status: Pending * Provider: Sis Lake M.D. Date: 10/09/2023 Generated for Kristal allen/Shamika/Helene on: 10/14/2024 03:13 PM EDT History and Physical Notes * [...]
--- OUTSIDE RECORDS SUMMARY | 2023-11-17 11:30 | XMS_ITS ---
[facility] Address [address] [place] [phone] Care Team Providers Care Lemon Picker Name Role Phone Aleksandra Matthew Unavailable [phone] Allergies No Known Allergies Reason For Referral Reason Will need to find a provider Diagnosis 1 Arthralgia of right temporomandibular joint (M26.621) [facility] Referring Provider First Name Matthew Referring Provider Last Name Aleksandra Referring Provider Speciality Family Pra ctice Referred Provider Oral surgery, . Referred Provider Specialty Oral Surgery General Notes Jeni Hubbard 11/17/19 24 3:39:14 PM > Dr. Yusuf , Jeni Hubbard 11/21/2023 10:40:43 AM > spoke with Dr. Yusuf office; instructed to give the patient the website so they can request an appointment online; receptionist telephone operator said she would be on the lookout for the request Referral Priority Routine REASON FOR VISIT follow up Medications Medication SIG (Take, Route, Fr equency, Duration) Notes Start Date End Date Status Nabumetone 750 MG 2 tabs Orally Once a day; Duration: 30 day(s) 11/17/2023 Active Zoloft 25 MG 1 tablet Orally Once a day; Duration: 30 day(s) Active Problems Problem Type SNOMED Code ICD Code Onset Dates Problem Status W/U Status Risk Notes Problem Morbid obesity (E66.01) Active confirmed Vital Signs Blood pressure systolic 120 mm Hg 11/17/19 24 Blood pressure diastolic 80 mm Hg 024 Heart Rate 109 /min 11/17/2023 Height 66.50 in 11/17/2023 Weight 262.6 lbs 11/17/2023 BMI 41.75 kg/m2 11/17/2023 Encounters Encounter Location Date Provider Diagnosis [facility] [address] [place] [phone] 11/17/2023 Matthew Lake Arthralgia of right temporomandibular joint M26.621 and Morbid obesity E66.01 Assessments Encounter Date Diagnosis (ICD Code) Assessment Notes Treatment Notes Treatment Clinical Notes Section Notes 11/17/2023 Arthralgia of right temporomandibular joint (ICD-10 - M26.621) 11/17/2023 Morbid obesity (ICD-10 - E66.01) Plan Of Treatment Medication Medication Name Sig Start Date Stop Date Notes Nabumetone 750 MG 2 tabs Orally Once a day; Duration: 30 day(s) 11/17/2023 Meloxicam 15 MG 1 tablet Orally Once a day 10/09/2023 Referrals Referral Date Details 11/17/2023 11/17/2023, Will bellee d to find a provider, . Oral surgery Next Appt Details Follow Up: via phone to repo rt progress, Reason: Progress Notes * MACARIO ARMENTAALONDRAOB:1995 (29 yo F)Acc No.[id number]:11/17/2023 Progress Notes Patient: DIONICIO DAS Provider: Sis Lake M.D. :1995 A ge:28 Y S ex:Female Date:11/17/2023 Address:[address] [place] [address] [place], [id number] Subjective: * Chief Complaints: * 1 . Follow up. * HPI: P ain: 28 year old female presents with c/o Jaw Pain P t here to f/u on jaw pain. Pt was seen 10/08 and rx'd Meloxicam 15 mg, states that did help with pain for about 2 weeks. Pt states that pain has improved but she is unable to open her jaw all the way. Pt states that if she opens her jaw wide she can here a pop and is in excruciating pain . * ROS: D ERMATOLOGY: no R deedee. [...] 1 tablet Orally Once a day , Taking Meloxicam 15 MG Tablet 1 tablet Orally Once a day , Medication List reviewed and reconciled with the patient * Allergies: N .K.D.A. Objective: * Vitals: W t:262.6, Temp:97.8, BP:120/80, HR:109, Nurse:brian, Ht: 66.50, BMI:41.75. * Examination: G eneral Examination: General Appearance: N AD, BMI 41.75. Assessment: * Assessment: 1. A rthralgia of right temporomandibular joint - M26.621 (Primary) 2 . M orbid obesity - E66.01 Plan: * Treatment: * Follow Up: v ia phone to report progress * Images: Billing Information: * Visit Code: 00698 Office Visit, Est Pt., Level 3. * Procedure Codes: * Electronic signature of Melisa Lake MD on 10/14/2024 at 03:13 PM EDT Sign off status: Pending * Provider: Sis Lake M.D. Date: 0 11/17/2023 Generated for Kristal allen/Shamika/Chetanransmitting on: 0 10/14/2024 03:13 PM EDT History and Physical Notes * HPI (History of Present Illness) Category Sub-Category Detail Notes Category Not es Pain Jaw Pain Pt here to f/u o n jaw pain. Pt was seen 10/08 and rx'd Meloxicam 15 mg, states that did help with pain for about 2 weeks. Pt states that pain has improved but she is unable to open her jaw all the way. Pt states that if she opens her jaw wide she can here a pop and is in excruciating pain Examination Category Sub-Category Detail Notes Category Not es General Examination General Appearance: NAD, BMI 41.75 Consultation Request Notes Referral Date Referring Provider Referred Provider Not es 11/17/2023 Matthew Lake Oral surgery, . Will need to find a provider
--- OUTSIDE RECORDS SUMMARY | 2024-08-08 11:45 | XMS_ITS ---
Author [facility] Address [address] [place] [phone] Care Team Providers Care Business Controller Name Role Phone Matthew Lake Unavailable [phone] Chandrika Person Unavailable [phone] Allergies No Known Allergies Results Component Value Reference Range Notes P-Vitamin B12 Reviewed date:08/14/2024 04:52:54 PM Interpretation:Normal Performing Lab: Notes/Report: Test performed by [facility] [address] [place] [address] , [address], [place] [address] Alphonso Yoo MD, Quality Control Microbiologist CLIA: [id number] Vitamin B12 024 354-4818 pg/mL P-Comprehensive Metabolic Pa quin (CMP) Reviewed date:08/14/2024 04:52:05 PM Interpretation:Normal Performing Lab: Notes/Report: Test performed by [facility] [address] [place] [address] , [address], [place] [address] Alphonso Yoo MD, Quality Control Microbiologist CLIA: [id number] Sodium 140 135-145 mmol/L Potassium 4.9 3.5-5.3 [...] Interpretation:Normal Performing Lab: Notes/Report: Test performed by [facility] [address] [place] [address] , [address], [place] [address] Alphonso Yoo MD, Quality Control Microbiologist CLIA: [id number] TSH reflex to FT4 1.23 0.43-5.25 mU/L Reason For Referral Diagnosis 1 Paresthesia (R20.2) Referral Organization [facility] Referring Provider First Name Chandrika Referring Provider Last Name Naya Referring Provider Speciality Physician Bilingual Trainer Referred Provider Specialty Podiatry General Notes Chandrika Person 04:01:44 PM >patient needs an appt with Haydee Suarez Brynn 08/09/2024 08:25:18 AM > faxed to [facility] PodiatrHaydee bustamante Brynn 08/09/2024 04:08:49 PM > [...] [address] [place] [phone] 08/08/2024 Chandrika Person Paresthesia R20. 2 Assessments Encounter Date Diagnosis (ICD Code) Assessment Notes Treatment Notes Treatment Clinical Notes Section Notes 08/08/2024 Paresthesia (ICD-10 - R20.2) Plan Of Treatment Referrals Referral Date Details 08/08/2024 08/08/2024 Next Appt Details Follow Up: via phone to repo rt test results, Reason: Progress Notes * TAURUS ARMENTAOB:1995 (29 yo F)Acc No.[id number]:08/08/2024 Progress Notes Patient: DIONICIO DAS Provider: LAKHWINDER Wallis :1995 A ge:29 Y S ex:Female Date:08/08/2024 Address:[address] [place] [phone] Subjective: * Chief Complaints: * 1 . [...] Treatment: Value Reference Range V itamin B12 589 318-5120 - pg/mL * Rosaura Fair 08/14/2024 04:5 [...] * Images: Billing Information: * Visit Code: 57101 Office Visit, Est Pt., Level 3. * Procedure Codes: * Electronic signature of LAKHWINDER Lala on 10/14/2024 at 03:13 PM EDT Sign off status: Pending * Provider: LAKHWINDER Wallis Date: 0 08/08/2024 Generated for Paulai tiffany/Shamika/eTransmitting on: 0 10/14/2024 03:13 PM EDT History [...]
--- OUTSIDE RECORDS SUMMARY | 2024-10-14 15:13 | XMS_ITS | Clinical Summary ---
Author Organization [facility] Address [address] [place] [address] Care Team Providers Care Assembly Hand Name Role Phone Matthew Lake MD Primary Care Provider [phone] Allergies Active Allergy Reactions Criticality Noted Date [...] often do you attend chur ch or druze services? Never 06/14/2023 Do you belong to any clubs o r organizations such as mosque groups, unions, fraternal or athletic groups, or [...] Recorded Patient Health Questionnaire-2 Score 0 03/07/2023 [facility] of Occupat ional [facility] - Occupational Stress Questionnaire Answer Date Recorded [...] place to sleep or slept in a snf (including now)? No 06/14/2023 Ir[place] Depression Scale Answer Date Recorded [place] Depression Scale Total 0 04/10/2023 The thought [...] drink first t antoinette in the morning (EYE-SPECIALTY SALES CONSULTANT) to steady your nerves or to get rid of a hangover? 0 06/14/2023 CAGE Questionnaire Score 0 024 Utilities Answer Date Recorded In the past 12 months has th e [employer], gas, oil, or water [employer] threatened to shut off services in your [...] of 3 - 19+ 3-dose series) 2013 [id number] Vaccine (2023- season) 2023 UKY-Depression Screening 04/10/2024 [...] this topic Medical Devices Implanted Type Area Casino Cashier Device Identifier Shelf Expiration Date Model / Serial / Lot Stent Zimlevi 7fr X 7cm - [id number] Implanted:Qty: 1 on 06/15/2023 by Danae Hall RN at [facility]-[id number] 02/24/2026 [id number] / / [id number] Procedures Procedure Name Priority Date/Time Associated Diagnosis [...] ORDERABLES Final Resu lt Performing Organization Address City/[facility] Co de Phone Number [facility] [address] [place] [address] * Hepatitis C Antibody (08/05/2022 3:14 PM EDT) Hepatitis C Antibody Negative Negative 08/05/2022 7:09 PM EDT [facility] Blood Venous blood specimen / Unknown Venipuncture / Unknown 08/05/2022 3:14 PM EDT 08/05/2022 6:30 PM EDT us Pranav Gonzalez MD LAB BLOOD ORDERABLES Final Resu lt Performing Organization Address City/[facility] Co de Phone Number [facility] [address] [place] [address] * (ABNORMAL) Pap Test (12/15/2021 5:12 PM EDT) Case Report Cytology Case: [id number] Authorizing Provider: Esha Vogt APRN, Collected: 12/15/2021 1712 CNM Ordering Location: Obstetrics & Gynecology Received: 12/17/2021 0945 First Screen: Rosina Julio Pathologist: Erika Briggs MD Specimen: ThinPrep Pap Test, Liquid-Based Cervical/Vaginal, CERVICAL/VAGINAL 12/21/2021 4:18 PM EDT [facility] Interpretation LOW GRADE SQUAMOUS INTRAEPITHELIAL LESION (LSIL)(A) 12/21/2021 4:18 PM EDT [facility] at 1618 EDT Specimen Adequacy Satisfactory for evaluation; endocervical/michael sformation zone component present. Slide scanned and imaged by ThinPrep Imaging System with manual review of all selected sanchez. 12/21/2021 4:18 PM EDT [facility] Cervical cytology is a screening test [...] results is suggested (please call Microbiology at [phone] for results). 12/21/2021 4:18 PM EDT [facility] Menstrual Status Cyclic 12/22/19 4:18 PM EDT [facility] Contraceptive History Not Applicable 12/21/2021 4:18 PM EDT [facility] Screening Type Previous or Suspected Abnormality 12/21/2021 4:18 PM EDT [facility] HPV Testing Requested? Request HPV Testing Regardless of Pap Test Findings 12/21/2021 4:18 PM EDT [facility] Infection History Human Papillomavirus 12/21/2021 4:18 PM EDT [facility] Previous Cancer History No 12/21/2021 4:18 PM EDT [facility] Previous or Suspected Abnormality Previous Abnormal Pap 12/21/2021 4:18 PM EDT [facility] Clinical Information R87.622 - Pap smear abnormality of vagina with LGSIL [ICD-10-CM] 12/21/2021 4:18 PM EDT [facility] Last Menstrual Period 11/26/2021 12/21/2021 4:18 PM EDT [facility] Swab Vaginal and cervical cytologic material / Unknown Non-blood Collection / Unknown 12/15/2021 5:12 PM EDT 12/17/2021 9:45 AM EDT Esha Martha Vogt APRN, CNM LAB CYTOLOGY ORDERA BLES Final Result Performing Organization Address City/State/[facility] Co de Phone Number [facility] [address] [place] [phone] from Last 3 Months or Most Recently Relevant to [place] [address] STEVEN Member Subscriber Plan / Payer (Ef fective 2020-Present) Name:Yancy Magallon Relation to Subscriber:Self Name:Yancy Magallon Payer ID:[id number] (NAIC) Type:Not on file Address: [address] [place] [address] STEVEN Member Subscriber Plan / Payer (Ef fective 2020-Present) Name:Yancy Magallon Relation to Subscriber:Self Name:Yancy Magallon Payer ID:[id number] (NAIC) Type:Not on file Address: [facility] [id number] [address] Advance Directives * Full Code (Latest Code Status on File) Date Activated Date Inactivated Comments 06/13/2023 5:42 AM 06/16/2023 7:08 PM Question Answer Comments Patient has decision-making capacity? Yes * Full Code Date Activated Date Inactivated Comments 06/09/2023 10:31 AM 06/11/2023 5:37 PM Question Answer Comments Patient has decision-making capacity? Yes Care Teams Assembly Hand Relationship Specialty Start Date End Date Matthew Lake MD [address] [place] [address] PCP - General 08/31/23
--- OUTSIDE RECORDS SUMMARY | 2024-10-14 15:13 | XMS_ITS | Encounter Summary ---
Author Organization Healthcare Address [address] [place] [address] Care Team Providers Care Clinical Editor Name Role Phone Regina Sorensen MD Primary Care Provider [phone] Namita Murdock APRN Primary Care Provider [phone] Chichi Chicas RN Unavailable [phone] Matthew Lake MD Primary Care Provider + [phone] Encounter Details Date Type Department Care Team (Late st Contact Info) Description 01/31/2022 Outside Procedure External Location [address] [place] [address] Provider, Jocelyne Mendez Social History Tobacco Use [...] How often do you attend chur or evangelical services? More than 4 times per year 11/10/2020 Do you belong to any clubs o r organizations such as bahai groups, unions, fraternal or athletic groups, or [...] Recorded Patient Health Questionnaire-2 Score 0 12/01/2020 [facility] of Occupat ional Health - [...] place to sleep or slept in a skilled nursing (including now)? No 11/10/2020 Comments No Sex [...] phy 01/31/2022 12:5 3 PM EST Generic Ronda Provider IMG CT PROCEDURES Fi nal Result documented in this encounter Visit Diagnoses Not on filedocumented in this encounter Care Teams Clinical Editor Relationship Specialty Start Date End Date Regina Sorensen MD [address] [place] [address] [place] [address] PCP - General 07/31/20 03/01/22 Namita Murdock APRN [address] [place] [phone] PCP - General Family Medicine 03/02/22 08/30/23 Matthew Lake MD [address] [facility] [address] [place] [address] PCP - General 08/31/23 Chichi Chicas RN [address] [address] Student Officer Internal Medicine 01/11/23 11/29/23 documented as of this encounter
--- OUTSIDE RECORDS SUMMARY | 2024-10-14 15:13 | XMS_ITS | Encounter Summary ---
Author Organization Healthcare Address [address] [place] [address] Care Team Providers Care Network Security Consultant Name Role Phone Namita Murdock APRN Primary Care Provider [phone] Chichi Chicas RN Unavailable [phone] Matthew Lake MD Primary Care Provider + [phone] Encounter Details Date Type Department Care Team (Late st Contact Info) Description 10/11/2022 Outside Procedure External Location [address] [place] [address] Pranav Gonzalez MD [address] [place] [address] Social History Tobacco Use Types [...] often do you attend chur ch or denominational services? More than 4 times per year 11/10/2020 Do you belong to any clubs o r organizations such as presybeterian groups, unions, fraternal or athletic groups, or [...] Recorded Patient Health Questionnaire-2 Score 0 12/01/2020 [facility] - Occupational Stress Questionnaire Answer Date [...] slept in a snf (including now)? No 11/10/2020 Comments Yes Sex [...] AM EDT Narrative 10/11/2022 3:12 [place] [address] Name: YANCY ARMENTA Exam Date: 10/11/2022 : 1995 Age 27 Gender: F Physician: Facility: [facility] Facility HSV: Exam: RT UPPER QUADRANT US [...] Thank you for referring YANCY ARMENTA to [facility]. Legally authenticated by DANIELA CEE 2022-10-11 11:05:13 Procedure Note Provider, Generic [place] - 10/11/2022 [place] [address] Name: YANCY ARMENTA Exam Date: 10/11/2022 : 1995 Age 27 Gender: F Physician: Facility: [facility] Facility HSV: Exam: RT UPPER QUADRANT US [...] Thank you for referring YANCY ARMENTA to [facility]. Legally authenticated by DANIELA CEE 2022-10-11 11:05:13 [...] documented as of this encounter Care Teams Network Security Consultant Relationship Specialty Start Date End Date Namita Murdock APRN [address] [place] [address] PCP - General Family Medicine 03/02/22 08/30/23 Matthew Lake MD [facility] [address] [address] PCP - General 08/31/23 Chichi Chicas RN [address] [phone] Blueprint Trimmer Internal Medicine 01/11/23 11/29/23 documented as of this encounter
--- OUTSIDE RECORDS SUMMARY | 2024-10-14 15:13 | XMS_ITS | Patient Health Record ---
Author Organization [facility] Address [address] [place] [id number] Care Team Providers Care Solderer Assembler Name Role Phone Matthew Lake Unavailable [phone] Chandrika Person Unavailable [phone] Allergies No Known Allergies Results Component Value Reference Range Notes P-TSH reflex to FT4 Reviewed date:08/14/2024 04:52:46 PM Interpretation:Normal Performing Lab: Notes/Report: Test performed by [email or web address] [address] [place] [address] , [address], [place] [address] Alphonso Yoo MD, Direct Service Worker CLIA: [id number] TSH reflex to FT4 1.23 0.43-5.25 mU/L P-Comprehensive Metabolic Pa quin (CMP) Reviewed date:08/14/2024 04:52:05 PM Interpretation:Normal Performing Lab: Notes/Report: Test performed by [email or web address] [address] [place] [address] , [address], [place] [address] Alphonso Yoo MD, Direct Service Worker CLIA: [id number] Sodium 140 135-145 mmol/L Potassium 4.9 3.5-5.3 [...] 0.3 <0.2-1.2 mg/dL A/G Ratio 1.8 1.1-2.5 P-Vitamin B12 Reviewed date:08/14/2024 04:52:54 PM Interpretation:Normal Performing Lab: Notes/Report: Test performed by [email or web address] [address] [place] [address] , [address], [place] [address] Alphonso Yoo MD, Direct Service Worker CLIA: [id number] Vitamin B12 591 500-0772 pg/mL Reason For Referral Reason Will need to find a provider Diagnosis 1 Arthralgia of right temporomandibular joint (M26.621) [facility] Referring Provider First Name Matthew [...] they can request an appointment online; receptionist doctor's office said she would be on the lookout for the request Referral Priority Routine Diagnosis 1 Paresthesia (R20.2) [facility] Referring Provider First Name Chandrika Referring Provider Last Name Naya Referring Provider Speciality Physician Percussion Teacher Referred Provider Specialty Podiatry General Notes Chandrika Person 04:01:44 PM >patient needs an appt with Haydee Suarez Brynn 08/09/2024 08:25:18 AM > faxed to [facility] PodiatryHaydee Brynn 08/09/2024 04:08:49 PM > 09/10/2024 at 08:30am Referral Priority Routine Immunizations Vaccine Route Administration Date Status Comme nts Tetanus Tdap-Adacel (over 7yrs) Unknown 12/29/2022 Admi nistered Fluzone PF Quad (6-35 months) Unknown 08/05/2022 Admini stered Fluzone PF Quad (6-35 months) Unknown 12/05/2022 Admini stered Fluzone PF Quad (6-35 months) Unknown 12/05/2022 Admini stered Problems Problem Type SNOMED Code ICD Code Onset Dates Problem Status W/U Status Risk Notes Problem Morbid obesity (132503941) Morbid obesity (E66.01) Active confirmed Problem Paresthesia (33429417) Paresthesia (R20.2) Active confirmed Vital Signs Heart Rate 96 /min 08/08/2024 Blood pressure diastolic 24 mm Hg 08/08/2024 Height 66.50 in 08/08/2024 Blood pressure systolic 120 mm Hg 08/08/2024 Weight 266.2 lbs 08/08/2024 BMI 42.32 kg/m2 08/08/2024 Encounters Encounter Location Date Provider Diagnosis [facility] [address] [place], [place] [id number] 11/17/2023 Matthew Lake Arthralgia of right temporomandibular joint M26.621 and Morbid obesity E66.01 [facility] [address] [place], [place] [id number] 08/08/2024 Chandrika Crowdy Paresthesia R20.2 [facility] [address] [place], [place] [id number] 01/31/2024 Matthew Lake Assessments Encounter Date Diagnosis (ICD Code) Assessment Notes Treatment Notes Treatment Clinical Notes Section Notes 11/17/2023 Morbid obesity (ICD-10 - E66.01) 11/17/2023 [...] STEVEN [employer] [address] [place] [address] [id number] DIONICIO CHRISTIANSEN Self - patient is the insured Medical (General) History Medical History History ICD Code Allergic Rhinitis Depression Surgical History Surgery Date(Month/Year) [place] Teeth 2011
--- OUTSIDE RECORDS SUMMARY | 2024-10-14 15:14 | XMS_ITS | Data Portability ---
Author Organization [facility] [place] [facility] Address [address] [place] [address] Care Team Providers Care Plastic Top Assembler Name Role Phone CAMILA WALKER Primary Care Provider [phone] Assessment No assessment recorded. Plan of Treatment Reminders Order Date Submit Date Provider Last Modified By Organization Details Last Modified Time Details Appointments None recorded. Lab None recorded. Referral None recorded. Procedures None recorded. Surgeries None recorded. Imaging US, echocardio gram, transthora cic, complete, w/ color flow [address] (Centralized Scheduling), [address] [place], [address], 11:00:29 CT, angiogram, chest, w/ contrast 2021 [facility] (Centralized Scheduling), [address] [place], [address], 10:05:31 Medication Orders None recorded. Patient TargetsNo [...] Admitt ing Provid er: SAMIR CALDWELL [facility] [address], [place], [address], 03/24/2022 14:06:46 Result Notes Documentation Provider Name and Address Organization Details Recorded Time Ct, Angiogram, Chest, W/ Contrast : CC'ed Logic: Ordering Provider: SAMIR CALDWELL Attending Provider: SAMIR CALDWELL Referring Provider: SAMIR CALDWELL Admitting Provider: SAMIR serrano [place] - [facility] [place] 03/24/2022 14:06:46 Problems Name Problem SNOMED Code Status Onset Date Resolution Date Notes Provider Name and Address Organization Details Recorded Time Cardiomegaly 1836533 Active 2021 KULDEEP Portillo - [facility]NT [facility] [place] 2 10:53:17 Elevated blood-pressur e reading without diagnosis of hypertension 988523963 Active 2021 Jensen Henao MD [address], [place], [address] [facility] [place] 2 11:19:51 Problem Notes None recorded. Medical [...] kg/m2 Jensen Henao MD [address], [place], [address], [facility] [place] 02/04/2022 11:19:31 Date Recorded Body weight Oxygen saturation Oxygen saturation in Arterial blood by Pulse oximetry Heart rate Systolic And Diastolic Provider Name and Address Organization Details Last Updated DateTime 2 460410. 24 g 98 % 98 % 97 /min 144/81 mm[Hg] Katya Owens [place] - [facility] & [place] 2 11:06:31 Social History None recorded. Functional Status Question Answer Note LastModified by Organizat ion Details LastModified Time Do you use any illicit or recreational drugs? No Information not available 02/04/2022 What is your level of alcohol consumption? Occasional Information not available 02/04/2022 Mental Status None recorded. Family History Nothing Reported Notes:grandparents hx of SD, HTN Medical History No medical history recorded. Gynecological HistoryNo gynecological history recorded. Obstetrics History GPAL:G 0 P 0 0 0 0 Past Encounters Encounter ID Performer Location Encounter Start Date Encounter Closed Date Diagnosis/Indication Diagnosis SNOMED-CT Code Diagnosis ICD10 Code Diagnosis Note [id number] Jensen Henao MD [facility] [address] [place] [address] 02/04/2022 10:46:37 02/04/2022 11:15:40 Cardiomegaly 3742988 I51.7 noted on CTA. she is asymptomat ic , denies any chest pain or heart failure symptoms.W ill obtain echo for for further evaluation Elevated blood-pressure reading without diagnosis of hypertension 197968913 R03.0 Keep log Low-salt diet < 2 gm Na/day, Regular exercise Weight loss Body mass index 30+ - obesity 514340662 Z68.36 Low-carboh ydrate and low-fat diet Increase exercise to 30 minutes a day. Increase fruits and fresh vegetable intake and decrease processed foods and sugars History of pulmonary embolus 331649692 Z86.711 possible small pulmonary embolism noted on [...] Weinstein Member ID Guarantor Name 02/04/2022 1 [place] [id number] Yancy [id number] OBGyn Episode No OBEpisode recorded.
--- NOTE | 2024-10-14 15:30 | US_ITS ---
PROCEDURE: US TRANSVAGINAL CLINICAL INDICATION: Follicle Scan -Cycle Day 11-14 COMPARISON: CT CT ABDOMEN PELVIS W CON from 06/12/2023 US US TRANSVAGINAL from 05/16/2024 US US TRANSVAGINAL from 06/18/2024 FINDINGS: Transvaginal sonographic images of the pelvis were obtained. UTERUS: 7.5 cm x 4.4cmx 3.3cm anteverted with a combined endometrial thickness of 5.1mm. The endometrium appears trilaminar. LEFT OVARY: 2.5cmx3.2cmx3.2cm with a volume of 13ml. Follicle 1. 0.73 cm Follicle 2. 0.61 cm Follicle 3. 0.60 cm Follicle 4. 0.48 cm Follicle 5. 0.54 cm Follicle 6. 0.98 cm Follicle 7. 0.78 cm Follicle 8. 0.73 cm Follicle 9. 0.75 cm Follicle 10. 0.68 cm Follicle 11. 0.81 cm Follicle 12. 1.94 cm Follicle 13. 0.66 cm Follicle 14. 0.46 cm Follicle 15. 0.33 cm RIGHT OVARY: 3.6 cmx 2.6 cmx3.1cm with a volume of 15.6ml. Follicle 1. 1.15 cm Follicle 2. 0.73 cm Follicle 3. 0.98 cm Follicle 4. 0.83 cm Follicle 5. 0.65 cm Follicle 6. 0.58 cm Follicle 7. 0.40 cm Follicle 8. 0.35 cm There is a persistent cystic area inferior to the right ovary that measures 2.0 cm x 1.9 cm x 1.7 cm. No change in size. both ovaries are seen and appear multi-cystic. Doppler flow to both ovaries are seen. There is no fluid in the cul-de-sac. IMPRESSION: 1. Anteverted uterus normal in shape and size. The endometrium measures 5.1 mm and appears trilaminar. 2. Both ovaries are seen and contain multiple small follicles. There is a persistent cystic area inferior to the right ovary that measures 2 cm and has not changed in size since her last ultrasound in June 2024. 3. No fluid in the cul-de-sac. Dictated by: Kali Chandra MD 10/14/2024 16:21 Kali Chandra MD in [place] 10/14/2024 16:21
== END 2024-10-14 23:59 | disposition home or self-care (01) ==
LOC: RAD 15:11
PROVIDERS: PCP Family Medicine; Visit Provider Obstetrics & Gynecology
DX: N97.0 Female infertility associated with anovulation (principal); E28.2 Polycystic ovarian syndrome
CPT/HCPCS: 76830

== ENCOUNTER 2024-10-22 15:29 | Outpatient (CLI) | payer BC, SELFPAY ==
--- OUTSIDE RECORDS SUMMARY | 2023-10-09 09:45 | XMS_ITS ---
Author Organization [facility] Address 1210 [facility] [address] [place] [phone] Care Team Providers Care Video Game Maker Name Role Phone [place], Matthew Unavailable [phone] Allergies No Known Allergies REASON FOR VISIT [...] Encounter Location Date Provider Diagnosis Laya 1210 [facility] [address] [place] [phone] 10/09/2023 Matthew Lake Arthralgia of right temporomandibular [...] Notes * MACARIO ARMENTANDOB:1995 (29 yo F)Acc No.[id number]:10/09/2023 Progress Notes Patient: DIONICIO DAS Provider: iSs Lake M.D. :1995 A ge:28 Y S ex:Female Date:10/09/2023 Address:[address] [place], [place] [phone] Subjective: * Chief Complaints: * 1 . [...] * Images: Billing Information: * Visit Code: 04875 Office Visit, Est Pt., Level 3. * Procedure Codes: * Electronic signature of Mleisa Lake MD on 10/22/2024 at 03:33 PM EDT Sign off status: Pending * Provider: Sis Lake M.D. Date: 10/09/2023 Generated for Kristal allen/Shamika/Helene on: 10/22/2024 03:33 PM EDT History and Physical Notes * HPI [...]
--- OUTSIDE RECORDS SUMMARY | 2023-11-17 11:30 | XMS_ITS ---
[facility] Address [address] [place] [phone] Care Team Providers Care Salmon Troll Fisher Name Role Phone Aleksandra Matthew Unavailable [phone] Allergies No Known Allergies Reason For Referral Reason Will need to find a provider Diagnosis 1 Arthralgia of right temporomandibular joint (M26.621) [facility] Referring Provider First Name Matthew Referring Provider Last Name Aleksandra Referring Provider Speciality Family Pra ctice Referred Provider Oral surgery, . Referred Provider Specialty Oral Surgery General Notes Jeni Hubbard 11/17/19 24 3:39:14 PM > Dr. Yusuf , Jeni Hubbard 11/21/2023 10:40:43 AM > spoke with Dr. Yusuf office; instructed to give the patient the website so they can request an appointment online; brake lining curer said she would be on the lookout [...] Provider Diagnosis [facility] [address] [place] [phone] 11/17/2023 Matthew Lake Arthralgia of right temporomandibular [...] Notes * MACARIO ARMENTAALONDRAOB:1995 (29 yo F)Acc No.[id number]:11/17/2023 Progress Notes Patient: DIONICIO DAS Provider: Sis Lake M.D. :1995 A ge:28 Y S ex:Female Date:11/17/2023 Address:[address] [place] [address] [place], [id number] Subjective: * Chief Complaints: * 1 . [...] * Images: Billing Information: * Visit Code: 23939 Office Visit, Est Pt., Level 3. * Procedure Codes: * Electronic signature of Melisa Lake MD on 10/22/2024 at 03:33 PM EDT Sign off status: Pending * Provider: Sis Lake M.D. Date: 0 11/17/2023 Generated for Kristal allen/Shamika/Chetanransmitting on: 0 10/22/2024 03:33 PM EDT History and Physical [...]
--- OUTSIDE RECORDS SUMMARY | 2024-08-08 11:45 | XMS_ITS ---
Author Organization [facility] Address [address] [place] [phone] Care Team Providers Care Smocking Machine Operator Name Role Phone Matthew Lake Unavailable [phone] Chandrika Person Unavailable [phone] Allergies No Known Allergies Results Component Value Reference Range Notes P-Vitamin B12 Reviewed date:08/14/2024 04:52:54 PM Interpretation:Normal Performing Lab: Notes/Report: Test performed by [facility] [address] [place] [address] , [address], [place] [address] Alphonso Yoo MD, Mainstreaming Facilitator CLIA: [id number] Vitamin B12 015 247-7907 pg/mL P-Comprehensive Metabolic Pa quin (CMP) Reviewed date:08/14/2024 04:52:05 PM Interpretation:Normal Performing Lab: Notes/Report: Test performed by [facility] [address] [place] [address] , [address], [place] [address] Alphonso Yoo MD, Mainstreaming Facilitator CLIA: [id number] Sodium 140 135-145 mmol/L Potassium 4.9 3.5-5.3 [...] Interpretation:Normal Performing Lab: Notes/Report: Test performed by [facility] [address] [place] [address] , [address], [place] [address] Alphonso Yoo MD, Mainstreaming Facilitator CLIA: [id number] TSH reflex to FT4 1.23 0.43-5.25 mU/L Reason For Referral Diagnosis 1 Paresthesia (R20.2) Referral Organization [facility] Referring Provider First Name Chandrika Referring Provider Last Name Naya Referring Provider Speciality Physician Head Machine Feeder Referred Provider Specialty Podiatry General Notes Chandrika Person 04:01:44 PM >patient needs an appt with Haydee Suarez Brynn 08/09/2024 08:25:18 AM > fax[facility] to [facility] PodiatrHaydee bustamante Brynn 08/09/2024 04:08:49 PM > 09/10/2024 at 08:30am Referral Priority Routine REASON FOR VISIT pain in little toe Problems Problem Type SNOMED Code ICD Code Onset Dates Problem Status W/U Status Risk Notes Problem Paresthesia (50950360) Paresthesia (R20.2) Active confirmed Vital Signs Blood pressure systolic 120 mm Hg 08/09/19 25 Blood pressure diastolic 24 mm Hg 025 Heart Rate 96 /min 08/08/2024 Height 66.50 in 08/08/2024 Weight 266.2 lbs 08/08/2024 BMI 42.32 kg/m2 08/08/2024 Encounters Encounter Location Date Provider Diagnosis [facility] [address] [place] [phone] 08/08/2024 Chandrika Person Paresthesia R20. 2 Assessments Encounter Date Diagnosis (ICD Code) Assessment Notes Treatment Notes Treatment Clinical Notes Section Notes 08/08/2024 Paresthesia (ICD-10 - R20.2) Plan Of Treatment Referrals Referral Date Details 08/08/2024 08/08/2024 Next Appt Details Follow Up: via phone to repo rt test results, Reason: Progress Notes * TAURUS ARMENTAOB:1995 (29 yo F)Acc No.[id number]:08/08/2024 Progress Notes Patient: DIONICIO DAS Provider: LAKWHINDER Wallis :1995 A ge:29 Y S ex:Female Date:08/08/2024 Address:[address] [place], [place] [phone] Subjective: * Chief Complaints: * 1 . [...] Treatment: Value Reference Range V itamin B12 079 823-6469 - pg/mL * Rosaura Fair 08/14/2024 04:5 [...] * Images: Billing Information: * Visit Code: 70896 Office Visit, Est Pt., Level 3. * Procedure Codes: * Electronic signature of LAKHWINDER Lala on 10/22/2024 at 03:33 PM EDT Sign off status: Pending * Provider: LAKHWINDER Wallis Date: 0 08/08/2024 Generated for Paulai tiffany/Shamika/eTransmitting on: 0 10/22/2024 03:33 PM EDT History [...]
--- OUTSIDE RECORDS SUMMARY | 2024-10-22 15:33 | XMS_ITS | Encounter Summary ---
Author Organization Healthcare Address [address] [place] [address] Care Team Providers Care Bruise Trimmer Name Role Phone Namita Murdock APRN Primary Care Provider [phone] Chichi Chicas RN Unavailable [phone] Matthew Lake MD Primary Care Provider [phone] Encounter Details Date Type Department Care Team (Late st Contact Info) Description 10/11/2022 Outside Procedure External Location [address] [place] [address] Pranav Gonzalez MD [address] [place] [address] Social History Tobacco Use Types [...] often do you attend chur ch or evangelical services? More than 4 times per year 11/10/2020 Do you belong to any clubs o r organizations such as yazidism groups, unions, fraternal or athletic groups, or [...] Patient Health Questionnaire-2 Score 0 12/01/2020 [facility] - Occupational Stress Questionnaire Answer Date Recorded [...] place to sleep or slept in a care home (including now)? No 11/10/2020 Comments Yes Sex [...] AM EDT Narrative 10/11/2022 3:12 [place] [address] Name: YANCY ARMENTA Exam Date: 10/11/2022 : 1995 Age 27 Gender: F Physician: Facility: [facility] Facility HSV: Exam: RT UPPER QUADRANT [...] Thank you for referring YANCY ARMENTA to [facility]. Legally authenticated by DANIELA CEE 2022-10-11 11:05:13 Procedure Note Provider, Generic [place] - 10/11/2022 [place] [address] Name: YANCY ARMENTA Exam Date: 10/11/2022 : 1995 Age 27 Gender: F Physician: Facility: [facility] Facility HSV: Exam: RT UPPER QUADRANT [...] Thank you for referring YANCY ARMENTA to [facility]. Legally authenticated by DANIELA CEE 2022-10-11 11:05:13 [...] documented as of this encounter Care Teams Bruise Trimmer Relationship Specialty Start Date End Date Namita Murdock APRN [address] [place] [address] PCP - General Family Medicine 03/02/22 08/30/23 Matthew Lake MD [facility] [address] [address] PCP - General 08/31/23 Chichi Chicas RN [address] [phone] Precision Lens Technician Internal Medicine 01/11/23 11/29/23 documented as of this encounter
--- OUTSIDE RECORDS SUMMARY | 2024-10-22 15:33 | XMS_ITS | Clinical Summary ---
Author Organization [facility] Address [address] [place] [address] Care Team Providers Care Eeg Technologist Name Role Phone Matthew Lake MD Primary Care Provider [phone] Allergies Active Allergy Reactions Criticality Noted Date [...] often do you attend chur ch or mormon services? Never 06/14/2023 Do you belong to any clubs o r organizations such as hoahaoism groups, unions, fraternal or athletic groups, or [...] Recorded Patient Health Questionnaire-2 Score 0 03/07/2023 [facility]at [facility] - Occupational Stress Questionnaire Answer Date [...] place to sleep or slept in a correction (including now)? No 06/14/2023 [place] Depression Scale Answer Date Recorded [place] Depression Scale Total 0 04/10/2023 The thought [...] drink first t antoinette in the morning (EYE-ORCHID HAND) to steady your nerves or to get rid of a hangover? 0 06/14/2023 CAGE Questionnaire Score 0 024 Utilities Answer Date Recorded In the past 12 months has th e [employer], gas, oil, or water [employer] threatened to shut off services in your [...] of 3 - 19+ 3-dose series) 2013 OWJ-VAMHT-76 Vaccine (2023- season) 2023 [facility]-Depression Screening 04/10/2024 04/10/2023, 02/17 [facility]-Influenza Vaccine (#1) 2024 12/05/2022, [facility]-Pap Smear 12/15/2024 12/15/2021, 12/07/2020 [facility]-Cervical Cancer Screening 12/15/2026 [facility]-HPV/Cotest 12/15/2026 12/15/2021, 11/19, 12/07/2020, Additional history exists [facility]-DTaP,Tdap,and Td Vaccines (2 - Td or [...] this topic Medical Devices Implanted Type Area Dance Costume Designer Device Identifier Shelf Expiration Date Model / Serial / Lot Stent Zimmon 7fr X 7cm - [id number] Implanted:Qty: 1 on 06/15/2023 by Danae Hall, RN at [id number] 02/24/2026 [id number] / / [id number] Procedures Procedure Name Priority Date/Time Associated Diagnosis [...] Reactive Non Reactive 08/05/2022 7:03 PM EDT [facility] Comment:Screening for HIV 1 & 2 antibodies, and P24 antigen is NONREACTIVE. No confirmatory testing is required. Blood Venous blood specimen / Unknown Venipuncture / Unknown 08/05/2022 3:14 PM EDT 08/05/2022 6:30 PM EDT Result Mary Gonzalez MD LAB BLOOD ORDERABLES Final Resu lt Performing Organization Address [facility] Co de Phone Number [facility] [address] [place] [address] * Hepatitis C Antibody (08/05/2022 3:14 PM EDT) Hepatitis C Antibody Negative Negative 08/05/2022 7:09 PM EDT [facility] Blood Venous blood specimen / Unknown Venipuncture / Unknown 08/05/2022 3:14 PM EDT 08/05/2022 6:30 PM EDT Result Mary Gonzalez MD LAB BLOOD ORDERABLES Final Resu lt Performing Organization Address [facility] Co de Phone Number [facility] [address] [place] [address] * (ABNORMAL) Pap Test (12/15/2021 5:12 PM EDT) Case Report Cytology Case: [id number] Authorizing Provider: Esha Vogt APRN, Collected: 12/15/2021 1712 CNM Ordering Location: Obstetrics & Gynecology Received: 12/17/2021 0945 First Screen: Rosina Julio Pathologist: Erika Briggs MD Specimen: ThinPrep Pap Test, Liquid-Based Cervical/Vaginal, CERVICAL/VAGINAL 12/21/2021 4:18 PM EDT [facility] Interpretation LOW GRADE SQUAMOUS INTRAEPITHELIAL LESION (LSIL)(A) 12/21/2021 4:18 PM EDT [facility] at 1618 EDT Specimen Adequacy Satisfactory for evaluation; endocervical/michael sformation zone component present. Slide scanned and imaged by ThinPrep Imaging System with manual review of all selected sanchez. 12/21/2021 4:18 PM EDT [facility] Cervical cytology is a screening [...] results is suggested (please call Microbiology at [phone] for results). 12/21/2021 4:18 PM EDT [facility] Menstrual Status Cyclic 12/22/19 4:18 PM EDT [facility] Contraceptive History Not Applicable 12/21/2021 4:18 PM EDT [facility] Screening Type Previous or Suspected Abnormality 12/21/2021 4:18 PM EDT [facility] HPV Testing Requested? Request HPV Testing Regardless of Pap Test Findings 12/21/2021 4:18 PM EDT [facility] Infection History Human Papillomavirus 12/21/2021 4:18 PM EDT [facility] Previous Cancer History No 12/21/2021 4:18 PM EDT [facility] Previous or Suspected Abnormality Previous Abnormal Pap 12/21/2021 4:18 PM EDT [facility] Clinical Information R87.622 - Pap smear abnormality of vagina with LGSIL [ICD-10-CM] 12/21/2021 4:18 PM EDT [facility] Last Menstrual Period 11/26/2021 12/21/2021 4:18 PM EDT [facility] Swab Vaginal and cervical cytologic material / Unknown Non-blood Collection / Unknown 12/15/2021 5:12 PM EDT 12/17/2021 9:45 AM EDT Esha Vogt APRN, CNM LAB CYTOLOGY ORDERA BLES Final Result [facility] [address] [place] [address] from Last 3 Months or Most Recently Relevant to [place] [address] [place] [address] [place] [address] ANTH[employer]ULMA Advance Directives * Full Code (Latest Code Status on File) Date Activated Date Inactivated Comments 06/13/2023 5:42 AM 06/16/2023 7:08 PM Question Answer Comments Patient has decision-making capacity? Yes * Full Code Date Activated Date Inactivated Comments 06/09/2023 10:31 AM 06/11/2023 5:37 PM Question Answer Comments Patient has decision-making capacity? Yes Care Teams Eeg Technologist Relationship Specialty Start Date End Date Matthew Lake MD [address] [place] [address] PCP - General 08/31/23
--- OUTSIDE RECORDS SUMMARY | 2024-10-22 15:33 | XMS_ITS | Encounter Summary ---
Author Organization Healthcare Address [address] [place] [address] Care Team Providers Care Manager Summer Name Role Phone Regina Sorensen MD Primary Care Provider [phone] Namita Murdock APRN Primary Care Provider [phone] Chichi Chicas RN Unavailable [phone] Matthew Lake MD Primary Care Provider + [phone] Encounter Details Date Type Department Care Team (Late st Contact Info) Description 01/31/2022 Outside Procedure External Location [address] [place] [address] Provider, Jocelyne Mendez Social History Tobacco Use [...] How often do you attend chur or sikh services? More than 4 times per year 11/10/2020 Do you belong to any clubs o r organizations such as samaritan groups, unions, fraternal or athletic groups, or [...] Recorded Patient Health Questionnaire-2 Score 0 12/01/2020 [facility] Occupat ional Health - Occupational Stress [...] place to sleep or slept in a assisted (including now)? No 11/10/2020 Comments No Sex [...] phy 01/31/2022 12:5 3 PM EST Generic Mcdonald Provider IMG CT PROCEDURES Fi nal Result documented in this encounter Visit Diagnoses Not on filedocumented in this encounter Care Teams Manager Summer Relationship Specialty Start Date End Date Regina Sorensen MD [address] [place] [address] [place] [address] PCP - General 07/31/20 03/01/22 Namita Murdock APRN [address] [place] [address] PCP - General Family Medicine 03/02/22 08/30/23 Matthew Lake MD [address] [facility] [address] [place] [address] PCP - General 08/31/23 Chichi Chicas RN [address] [address] Licensed Midwife Internal Medicine 01/11/23 11/29/23 documented as of this encounter
--- OUTSIDE RECORDS SUMMARY | 2024-10-22 15:33 | XMS_ITS | Patient Health Record ---
Author Organization [facility] Address [address] [place] [id number] Care Team Providers Care Asbestos Abatement Worker Name Role Phone Matthew Lake Unavailable [phone] Chandrika Person Unavailable [phone] Allergies No Known Allergies Results Component Value Reference Range Notes P-TSH reflex to FT4 Reviewed date:08/14/2024 04:52:46 PM Interpretation:Normal Performing Lab: Notes/Report: Test performed by [facility] [address] [place] [address] , [address], [place] [address] Alphonso Yoo MD, Home Care Scheduler CLIA: [id number] TSH reflex to FT4 1.23 0.43-5.25 mU/L P-Comprehensive Metabolic Pa quin (CMP) Reviewed date:08/14/2024 04:52:05 PM Interpretation:Normal Performing Lab: Notes/Report: Test performed by [facility] [address] [place] [address] , [address], [place] [address] Alphonso Yoo MD, Home Care Scheduler CLIA: [id number] Sodium 140 135-145 mmol/L Potassium 4.9 3.5-5.3 [...] Interpretation:Normal Performing Lab: Notes/Report: Test performed by [facility] [address] [place] [address] , [address], [place] [address] Alphonso Yoo MD, Home Care Scheduler CLIA: [id number] Vitamin B12 101 941-2080 pg/mL Reason For Referral Reason Will need to find a provider Diagnosis 1 Arthralgia of right temporomandibular joint (M26.621) Referral Organization [facility] Referring Provider First Name Matthew Referring Provider Last Name Aleksandra Referring Provider Speciality Family Pra ctice Referred Provider Oral surgery, . Referred Provider Specialty Oral Surgery General Notes Jeni Hubbard 11/17/19 3:39:14 PM > Dr. Yusuf , Jeni Hubbard 11/21/2023 10:40:43 AM > spoke with Dr. Yusuf office; instructed to give the patient the website so they can request an appointment online; business solutions architect said she would be on the lookout for the request Referral Priority Routine Diagnosis 1 Paresthesia (R20.2) Referral Organization [facility] Referring Provider First Name Chandrika Referring Provider Last Name Naya Referring Provider Speciality Physician Meat Scrubber Referred Provider Specialty Podiatry General Notes Chandrika Person 04:01:44 PM >patient needs an appt with Haydee Suarez Brynn 08/09/2024 08:25:18 AM > faxed to [facility] PodiatryHaydee Brynn 08/09/2024 04:08:49 PM > 09/10/2024 [...] W/U Status Risk Notes Problem Morbid obesity (732520647) Morbid obesity (E66.01) Active confirmed Problem Paresthesia (37760030) Paresthesia (R20.2) Active confirmed Vital Signs Heart Rate 96 /min 08/08/2024 Blood pressure diastolic 24 mm Hg 08/08/2024 Height 66.50 in 08/08/2024 Blood pressure systolic 120 mm Hg 08/08/2024 Weight 266.2 lbs 08/08/2024 BMI 42.32 kg/m2 08/08/2024 Encounters Encounter Location Date Provider Diagnosis [facility] [address] [place], [place] [id number] 11/17/2023 Matthew Lake Arthralgia of right temporomandibular joint M26.621 and Morbid obesity E66.01 [facility] [address] [place], [place] [id number] 08/08/2024 Chandrika Crowdy Paresthesia R20.2 [facility] [address] [place], [place] [id number] 01/31/2024 Matthew Lake Assessments Encounter Date Diagnosis [...] STEVEN [employer] [address] [place] [address] [id number] DIONICIO CHRISTIANSEN Self - patient is the insured Medical (General) History Medical History History ICD Code Allergic Rhinitis Depression Surgical History Surgery Date(Month/Year) [place] [facility] 2011
== END 2024-10-22 23:59 | disposition home or self-care (01) ==
LOC: LAB 15:29
PROVIDERS: PCP Family Medicine; Visit Provider Obstetrics & Gynecology
DX: N97.0 Female infertility associated with anovulation (principal)
CPT/HCPCS: 36415; 84144

== ENCOUNTER 2024-10-31 15:41 | Outpatient (CLI) | payer BC, SELFPAY ==
--- OUTSIDE RECORDS SUMMARY | 2023-10-09 09:45 | XMS_ITS ---
Author Organization [facility] Address 1210 [facility] [address] [place] [phone] Care Team Providers Care Business Professor Name Role Phone [place], Matthew Unavailable [phone] Allergies No Known Allergies REASON FOR VISIT [...] Encounter Location Date Provider Diagnosis Laya 1210 [facility] [address] [place] [phone] 10/09/2023 Matthew Lake Arthralgia of right temporomandibular [...] Notes * MACARIO ARMENTANDOB:1995 (29 yo F)Acc No.[id number]:10/09/2023 Progress Notes Patient: DIONICIO DAS Provider: Sis Lake M.D. :1995 A ge:28 Y S ex:Female Date:10/09/2023 Address:[address] [place], [place] [id number] Subjective: * Chief Complaints: * 1 . [...] * Images: Billing Information: * Visit Code: 33400 Office Visit, Est Pt., Level 3. * Procedure Codes: * Electronic signature of Melisa Lake MD on 10/31/2024 at 03:43 PM EDT Sign off status: Pending * Provider: Sis Lake M.D. Date: 10/09/2023 Generated for Kristal allen/Shamika/Helene on: 10/31/2024 03:43 PM EDT History and Physical Notes * [...]
--- OUTSIDE RECORDS SUMMARY | 2024-10-31 15:43 | XMS_ITS | Encounter Summary ---
Author Organization Healthcare Address [address] [place] [address] Care Team Providers Care Airplane Pilot Photogrammetry Name Role Phone Namita Murdock APRN Primary Care Provider [phone] Chichi Chicas RN Unavailable [phone] Matthew Lake MD Primary Care Provider + [phone] Encounter Details Date Type Department Care Team (Late st Contact Info) Description 10/11/2022 Outside Procedure External Location [address] [place] [address] Pranav Gonzalez MD [address] [place] [address] Social History Tobacco Use Types [...] often do you attend chur ch or lutheran services? More than 4 times per year 11/10/2020 Do you belong to any clubs o r organizations such as jainism groups, unions, fraternal or athletic groups, or [...] Recorded Patient Health Questionnaire-2 Score 0 12/01/2020 [facility] - Occupational Stress Questionnaire Answer Date Recorded [...] place to sleep or slept in a senior living (including now)? No 11/10/2020 Comments Yes Sex [...] AM EDT Narrative 10/11/2022 3:12 [place] [address] Name: YANCY ARMENTA Exam Date: 10/11/2022 : 1995 Age 27 Gender: F Physician: Facility: [facility] Facility HSV: Exam: RT UPPER QUADRANT [...] Thank you for referring YANCY ARMENTA to . Legally authenticated by DANIELA CEE 2022-10-11 11:05:13 Procedure Note Provider, Generic [facility] - 10/11/2022 [place] [address] Name: YANCY ARMENTA Exam Date: 10/11/2022 : 1995 Age 27 Gender: F Physician: Facility: [facility] Facility HSV: Exam: RT UPPER QUADRANT [...] Thank you for referring YANCY ARMENTA to . Legally authenticated by DANIELA CEE 2022-10-11 11:05:13 [...] documented as of this encounter Care Teams Airplane Pilot Photogrammetry Relationship Specialty Start Date End Date Namita Murdock APRN [address] [place] [address] PCP - General Family Medicine 03/02/22 08/30/23 Matthew Lake MD [facility] [address] [address] PCP - General 08/31/23 Chichi Chicas RN [address] [id number] Chief Privacy Officer Internal Medicine 01/11/23 11/29/23 documented as of this encounter
--- OUTSIDE RECORDS SUMMARY | 2024-10-31 15:43 | XMS_ITS | Encounter Summary ---
Author Organization Healthcare Address [address] [place] [address] Care Team Providers Care Die Machine Operator Name Role Phone Regina Sorensen MD Primary Care Provider [phone] Namita Murdock APRN Primary Care Provider [phone] Chichi Chicas RN Unavailable [phone] Matthew Lake MD Primary Care Provider [phone] Encounter Details Date Type Department Care Team (Late st Contact Info) Description 01/31/2022 Outside Procedure External Location [address] [place] [address] Provider, Jocelyne Mendez Social History Tobacco Use [...] How often do you attend chur or yazidi services? More than 4 times per year 11/10/2020 Do you belong to any clubs o r organizations such as hindu groups, unions, fraternal or athletic groups, or [...] Recorded Patient Health Questionnaire-2 Score 0 12/01/2020 [facility] Occupat ional Health - Occupational Stress [...] place to sleep or slept in a residential (including now)? No 11/10/2020 Comments No Sex [...] phy 01/31/2022 12:5 3 PM EST Generic [employer] Provider IMG CT PROCEDURES Fi nal Result documented in this encounter Visit Diagnoses Not on filedocumented in this encounter Care Teams Die Machine Operator Relationship Specialty Start Date End Date Regina Sorensen MD [address] [place] [address] [place] [address] PCP - General 07/31/20 03/01/22 Namita Murdock APRN [address] [place] [phone] PCP - General Family Medicine 03/02/22 08/30/23 Matthew Lake MD [address] [facility] [address] [place] [address] PCP - General 08/31/23 Chichi Chicas RN [address] [address] Veterans Services Specialist Internal Medicine 01/11/23 11/29/23 documented as of this encounter
--- OUTSIDE RECORDS SUMMARY | 2024-10-31 15:43 | XMS_ITS | Clinical Summary ---
Author Organization [facility] Address [address] [place] [address] Care Team Providers Care Classification Control Clerk Name Role Phone Matthew Lake MD Primary Care Provider [phone] Allergies Active Allergy Reactions Criticality Noted Date [...] often do you attend chur ch or anglican services? Never 06/14/2023 Do you belong to [...] Recorded Patient Health Questionnaire-2 Score 0 03/07/2023 [facility] of Occupat ional [facility] - Occupational Stress Questionnaire Answer [...] place to sleep or slept in a longterm (including now)? No 06/14/2023 [place] Depression Scale Answer Date Recorded [place] Depression Scale Total 0 04/10/2023 The thought [...] drink first t antoinette in the morning (EYE-MUNICIPAL FIREFIGHTER) to steady your nerves or to get rid of a hangover? 0 06/14/2023 CAGE Questionnaire Score 0 024 Utilities Answer Date Recorded In the past 12 months has th e [employer], gas, oil, or water [employer] threatened to shut off services in your [...] Health Maintenance Due Date Last Done Comments [facility]-/Child/Adol SDOH Screenings 1994 [facility]-Varicella Vaccines (1 of 2 - 13+ 2-dose series) 2007 [facility]- SDOH Screenings 02/08/2012 [facility]-Adult SDOH Screenings 02/08/2012 [facility]-Hepatitis B Vaccines (1 of 3 - 19+ 3-dose series) 2013 HPV Vaccines (1 - 3-dose SCDM series) 2021 IIN-LBLTT-43 Vaccine (1 - season) 2023 [facility]-Depression Screening 04/10/2024 04/10/2023, 02/17 [...] this topic Medical Devices Implanted Type Area Vibrator Operator Device Identifier Shelf Expiration Date Model / Serial / Lot Stent Zimlevi 7fr X 7cm - [id number] Implanted:Qty: 1 on 06/15/2023 by Danae Hall, RN at [id number] 02/24/2026 [id number] / / [id number] Procedures Procedure Name Priority Date/Time Associated Diagnosis [...] ORDERABLES Final Resu lt Performing Organization Address [facility] Co de Phone Number [facility] [address] [place] [address] * Hepatitis C Antibody (08/05/2022 3:14 PM EDT) Hepatitis C Antibody Negative Negative 08/05/2022 7:09 PM EDT [facility] Blood Venous blood specimen / Unknown Venipuncture / Unknown 08/05/2022 3:14 PM EDT 08/05/2022 6:30 PM EDT Result Mary Gonzalez MD LAB BLOOD ORDERABLES Final Resu lt Performing Organization Address [facility] Co de Phone Number [facility] [address] [place] [address] * (ABNORMAL) Pap Test (12/15/2021 5:12 PM EDT) Case Report Cytology Case: [id number] Authorizing Provider: Esha Vogt APRN, Collected: 12/15/2021 1712 CNM Ordering Location: Obstetrics & Gynecology Received: 12/17/2021 0945 First Screen: Rosina Julio Pathologist: Erika Briggs MD Specimen: ThinPrep Pap Test, Liquid-Based Cervical/Vaginal, CERVICAL/VAGINAL 12/21/2021 4:18 PM EDT [facility] Interpretation LOW GRADE SQUAMOUS INTRAEPITHELIAL LESION (LSIL)(A) 12/21/2021 4:18 PM EDT [facility] at 1618 EDT Specimen Adequacy Satisfactory for evaluation; endocervical/michael sformation zone component present. Slide scanned and imaged by ThinPrep Imaging System with manual review of all selected sanchez. 12/21/2021 4:18 PM EDT [facility] Cervical cytology is a screening test [...] results is suggested (please call Microbiology at [phone] for results). 12/21/2021 4:18 PM EDT [facility] Menstrual Status Cyclic 12/22/19 4:18 PM EDT [facility] Contraceptive History Not Applicable 12/21/2021 4:18 PM EDT [facility] Screening Type Previous or Suspected Abnormality 12/21/2021 4:18 PM EDT [facility] HPV Testing Requested? Request HPV Testing Regardless of Pap Test Findings 12/21/2021 4:18 PM EDT [facility] Infection History Human Papillomavirus 12/21/2021 4:18 PM EDT [facility] Previous Cancer History No 12/21/2021 4:18 PM EDT [facility] Previous or Suspected Abnormality Previous Abnormal Pap 12/21/2021 4:18 PM EDT [facility] Clinical Information R87.622 - Pap smear abnormality of vagina with LGSIL [ICD-10-CM] 12/21/2021 4:18 PM EDT [facility] Last Menstrual Period 11/26/2021 12/21/2021 4:18 PM EDT [facility] Swab Vaginal and cervical cytologic material / Unknown Non-blood Collection / Unknown 12/15/2021 5:12 PM EDT 12/17/2021 9:45 AM EDT Esha Vogt APRN, CNM LAB CYTOLOGY ORDERA BLES Final Result [facility] [address] [place] [address] from Last 3 Months or Most Recently Relevant [place] [address] URI Member Subscriber Plan / Payer ( fective 2020-Present) Name:Yancy Magallon Relation to Subscriber:Self Name:Yancy Magallon Payer ID:[id number] (NAIC) Type:Not on file Address: [address] [place] [address] ANTH Advance Directives * Full Code (Latest Code Status on File) Date Activated Date Inactivated Comments 06/13/2023 5:42 AM 06/16/2023 7:08 PM Question Answer Comments Patient has decision-making capacity? Yes * Full Code Date Activated Date Inactivated Comments 06/09/2023 10:31 AM 06/11/2023 5:37 PM Question Answer Comments Patient has decision-making capacity? Yes Care Teams Classification Control Clerk Relationship Specialty Start Date End Date Matthew Lake MD [facility] [place] [address] PCP - General 08/31/23
== END 2024-10-31 23:59 | disposition home or self-care (01) ==
LOC: LAB 15:41
PROVIDERS: PCP Family Medicine; Visit Provider Obstetrics & Gynecology
DX: N97.0 Female infertility associated with anovulation (principal); N91.2 Amenorrhea, unspecified; Z32.01 Encounter for pregnancy test, result positive
CPT/HCPCS: 36415; 84144; 84702

== ENCOUNTER 2024-11-04 15:33 | Outpatient (CLI) | payer BC, SELFPAY ==
--- OUTSIDE RECORDS SUMMARY | 2023-10-09 09:45 | XMS_ITS ---
Author Organization Laya Address 1210 [facility] [address] [place] [phone] Care Team Providers Care Electronic Warfare Linguist Name Role Phone [place], Matthew Unavailable [phone] Allergies No Known Allergies REASON FOR VISIT [...] Encounter Location Date Provider Diagnosis Laya 1210 [facility] [address] [place] [phone] 10/09/2023 Matthew Lake Arthralgia of right temporomandibular [...] Notes * MACARIO ARMENTANDOB:1995 (29 yo F)Acc No.[id number]:10/09/2023 Progress Notes Patient: DIONICIO DAS Provider: Sis Lake M.D. :1995 A ge:28 Y S ex:Female Date:10/09/2023 Address:[address] [place], [place] [phone] Subjective: * Chief Complaints: * 1 . [...] * Images: Billing Information: * Visit Code: 24117 Office Visit, Est Pt., Level 3. * Procedure Codes: * Electronic signature of Melisa Lake MD on 11/04/2024 at 03:35 PM EDT Sign off status: Pending * Provider: Sis Lake M.D. Date: 10/09/2023 Generated for Kristal allen/Shamika/Helene on: 11/04/2024 03:35 PM EDT History and Physical Notes * [...]
--- OUTSIDE RECORDS SUMMARY | 2023-11-17 11:30 | XMS_ITS ---
[facility] Address [address] [place] [phone] Care Team Providers Care Fugitive Detective Name Role Phone Aleksandra Matthew Unavailable [phone] Allergies No Known Allergies Reason For Referral Reason Will need to find a provider Diagnosis 1 Arthralgia of right temporomandibular joint (M26.621) [facility] Referring Provider First Name Matthew Referring Provider Last Name Aleksandra Referring Provider Speciality Family Pra ctice Referred Provider Oral surgery, . Referred Provider Specialty Oral Surgery General Notes Jeni Hubbard 11/17/19 24 3:39:14 PM > Dr. Yusuf , Jeni Hbubard 11/21/2023 10:40:43 AM > spoke with Dr. 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 :1995 A ge:28 Y S ex:Female Date:11/17/2023 Address:[address] [place] [address] [place], [id number] Subjective: * Chief Complaints: * 1 . [...] * Images: Billing Information: * Visit Code: 51563 Office Visit, Est Pt., Level 3. * Procedure Codes: * Electronic signature of Melisa Lake MD on 11/04/2024 at 03:35 PM EDT Sign off status: Pending * Provider: Sis Lake M.D. Date: 0 11/17/2023 Generated for Kristal allen/Shamika/Chetanransmitting on: 0 11/04/2024 03:35 PM EDT History and Physical [...]
--- OUTSIDE RECORDS SUMMARY | 2024-08-08 11:45 | XMS_ITS ---
[facility] Address [address] [place] [phone] Care Team Providers Care Thoracic Medicine Physician Name Role Phone Matthew Lake Unavailable [phone] Chandrika Person Unavailable [phone] Allergies No Known Allergies Results Component Value Reference Range Notes P-Vitamin B12 Reviewed date:08/14/2024 04:52:54 PM Interpretation:Normal Performing Lab: Notes/Report: Test performed by [facility] [address] [place] [address] , [address], [place] [address] Alphonso Yoo MD, Oven Unloader CLIA: [id number] Vitamin B12 820 639-5984 pg/mL P-Comprehensive Metabolic Pa quin (CMP) Reviewed date:08/14/2024 04:52:05 PM Interpretation:Normal Performing Lab: Notes/Report: Test performed by [facility] [address] [place] [address] , [address], [place] [address] Alphonso Yoo MD, Oven Unloader CLIA: [id number] Sodium 140 135-145 mmol/L Potassium 4.9 3.5-5.3 mmol/L Chloride 105 97-108 mmol/L CO2 25 22-32 mmol/L Glucose 106 65-99 mg/dL BUN 11 6-20 mg/dL Creatinine 0.66 0.50-1.00 mg/dL Calcium 9.3 8.6-10.4 mg/dL eGFR by Creatinine 121 >59 mL/min/1.73m2 Protein 7.4 6.0-8.3 g/dL Albumin 4.8 3.5-5.3 g/dL Alkaline Phosphatase 75 35-121 IU/L ALT (SGPT) 17 <5-47 IU/L AST (SGOT) 15 <5-40 IU/L Bilirubin, Total 0.3 <0.2-1.2 mg/dL A/G Ratio 1.8 1.1-2.5 P-TSH reflex to FT4 Reviewed date:08/14/2024 04:52:46 PM Interpretation:Normal Performing Lab: Notes/Report: Test performed by [facility] [address] [place] [address] , [address], [place] [address] Alphonso Yoo MD, Oven Unloader CLIA: [id number] TSH reflex to FT4 1.23 0.43-5.25 mU/L Reason For Referral Diagnosis 1 Paresthesia (R20.2) Referral Organization [facility] Referring Provider First Name Chandrika Referring Provider Last Name Naya Referring Provider Speciality Physician Specialty Transformer Assembler Referred Provider Specialty Podiatry General Notes Chandrika Person 04:01:44 PM >patient needs an appt with Haydee Suarez Brynn 08/09/2024 08:25:18 AM > faxed to [facility] PodiatrHaydee bustamante Brynn 08/09/2024 04:08:49 PM > 09/10/2024 at 08:30am Referral Priority Routine REASON FOR VISIT pain in little toe Problems Problem Type SNOMED Code ICD Code Onset Dates Problem Status W/U Status Risk Notes Problem Paresthesia (R20.2) Active confirmed Vital Signs Blood pressure systolic 120 mm Hg 08/09/19 25 Blood pressure diastolic 24 mm Hg 025 Heart Rate 96 /min 08/08/2024 Height 66.50 in 08/08/2024 Weight 266.2 lbs 08/08/2024 BMI 42.32 kg/m2 08/08/2024 Encounters Encounter Location Date Provider Diagnosis [facility] [address] [place] [phone] 08/08/2024 Chandrika Person Paresthesia R20. 2 Assessments Encounter Date Diagnosis (ICD Code) Assessment Notes Treatment Notes Treatment Clinical Notes Section Notes 08/08/2024 Paresthesia (ICD-10 - R20.2) Plan Of Treatment Referrals Referral Date Details 08/08/2024 08/08/2024 Next Appt Details Follow Up: via phone to repo rt test results, Reason: Progress Notes * TAURUS ARMENTAOB:1995 (29 yo F)Acc No.[id number]:08/08/2024 Progress Notes Patient: DIONICIO DAS Provider: LAKHWINDER [place] :1995 A ge:29 Y S ex:Female Date:08/08/2024 Address:[address] [place] [id number] Subjective: * Chief Complaints: * 1 . Pain in little toe. * HPI: A nkle/Foot: 29 year old female presents with c/o Tingling/ Numbness T he pt is here today with c/o numbness and tingling in the left little toe. Pt denies any know injury. Pt states this started about 2 weeks ago, and it is pretty much constant. * ROS: D ERMATOLOGY: no R deedee. n o H umm. G ASTROENTEROLOGY: no N ausea. n o V omiting. n o D iarrhea.? U ROLOGY: no D ifficulty urinating. n [...] yes. Travel ouside [place]: no. * Medications: D iscontinued Nabumetone 750 MG Tablet 2 tabs Orally Once a day , Discontinued Zoloft 25 MG Tablet 1 tablet Orally Once a day , Medication List reviewed and reconciled with the patient * Allergies: N .K.D.A. Objective: * Vitals: W t: 266.2, Temp: 99.1, BP: 120/24, HR: 96, Nurse: ALESHIA, Ht: 66.50, BMI:42.32. * Examination: G eneral Examination: General Appearance: N AD. C hest: n ormal shape and expansion. H eart: R SR. L ungs: c lear to auscultation. E xtremities: no leg edema, left 5th toe with decreased sensation. Assessment: * Assessment: 1. P aresthesia - R20.2 (Primary) S pecify :left 5th toe Plan: * Treatment: Value Reference Range V itamin B12 281 462-2500 - pg/mL * Rosaura Fair 08/14/2024 04:5 2:52 PM >pt informed ?LAB: P-Comprehensive Metabolic Panel (CMP) (Collection Date & Time - 08/08/2024 03:25 PM)?Normal* Value Reference Range A /G Ratio 1.8 1.1-2.5 - * A lbumin 4.8 3.5-5.3 - g/dL * A lkaline Phosphatase 75 35-121 - IU/L * A LT (SGPT) 17 <5-47 - IU/L * A ST (SGOT) 15 <5-40 - IU/L * B ilirubin, Total 0.3 <0.2-1.2 - mg/dL * B UN 11 6-20 - mg/dL * C alcium 9.3 8.6-10.4 - mg/dL * C hloride 105 97-108 - mmol/L * C O2 25 22-32 - mmol/L * C reatinine 0.66 0.50-1.00 - mg/dL * G lucose 106 H 65-99 - mg/dL * P otassium 4.9 3.5-5.3 - mmol/L * S odium 140 135-145 - mmol/L * P rotein 7.4 6.0-8.3 - g/dL * e GFR by Creatinine 121 >59 - mL/min/1.73m2 * Rosaura Fair 08/14/2024 04:5 2:01 PM >pt informed ?LAB: P-TSH reflex to FT4 (Collection Date & Time - 08/08/2024 03:25 PM)? Normal* Value Reference Range T SH reflex to FT4 1.23 0.43-5.25 - mU/L * Rosaura Fair 08/14/2024 04:5 2:44 PM >pt informed ? Referral To:Podiatry ?Reason: * Follow Up: v ia phone to report test results * Images: Billing Information: * Visit Code: 05968 Office Visit, Est Pt., Level 3. * Procedure Codes: * Electronic signature of LAKHWINDER Lala on 11/04/2024 at 03:35 PM EDT Sign off status: Pending * Provider: LAKHWINDER [place] Date: 0 08/08/2024 Generated for Paulai tiffany/Shamika/eTransmitting on: 0 11/04/2024 03:35 PM EDT History and Physical Notes * HPI (History of Present Illness) Category Sub-Category Detail Notes Category Not es Ankle/Foot Tingling/ Numbness The pt is her e today with c/o numbness and tingling in the left little toe. Pt denies any know injury. Pt states this started about 2 weeks ago, and it is pretty much constant Examination Category Sub-Category Detail Notes Category Not es General Examination Heart: RSR Lungs: clear to auscultatio n Extremities: no leg edema, left 5 th toe with decreased sensation General Appearance: NAD Chest: normal shape and exp ansion Consultation Request Notes Referral Date Referring Provider Referred Provider Not es 08/08/2024 Chandrika Person ,
--- OUTSIDE RECORDS SUMMARY | 2024-11-04 15:35 | XMS_ITS | Patient Health Record ---
Author Organization Formerly [facility] Address [address] [place]UDLE[place] [id number] Care Team Providers Care Marine Service Station Attendant Name Role Phone Matthew Lake Unavailable [phone] Chandrika Person Unavailable [phone] Allergies No Known Allergies Results Component Value Reference Range Notes P-Vitamin B12 Reviewed date:08/14/2024 04:52:54 PM Interpretation:Normal Performing Lab: Notes/Report: Test performed by [facility] [address] [place] [address] , [address], [place] [address] Alphonso Yoo MD, Senior Site Manager CLIA: [id number] Vitamin B12 058 920-0454 pg/mL P-Comprehensive Metabolic Pa quin (CMP) Reviewed date:08/14/2024 04:52:05 PM Interpretation:Normal Performing Lab: Notes/Report: Test performed by [facility] [address] [place] [address] , [address], [place] [address] Alphonso Yoo MD, Senior Site Manager CLIA: [id number] Sodium 140 135-145 mmol/L Potassium 4.9 3.5-5.3 [...] Interpretation:Normal Performing Lab: Notes/Report: Test performed by [facility] [address] , [address], [place] [address] Alphonso Yoo MD, Senior Site Manager CLIA: [id number] TSH reflex to FT4 1.23 0.43-5.25 mU/L Reason For Referral Reason Will need to find a provider Diagnosis 1 Arthralgia of right temporomandibular joint (M26.621) [facility] Referring Provider First Name Matthew Referring Provider Last Name Aleksandra Referring Provider Speciality Family Pra ctice Referred Provider Oral surgery, . Referred Provider Specialty Oral Surgery General Notes Jeni Hubbard 11/17/19 3:39:14 PM > Dr. Yusuf , Jeni Hubbard 11/21/2023 10:40:43 AM > spoke with Dr. Yusuf office; instructed to give the patient the website so they can request an appointment online; receptionist/telephone operator said she would be on the lookout for the request Referral Priority Routine Diagnosis 1 Paresthesia (R20.2) Ref[facility] Referring Provider First Name Chandrika Referring Provider Last Name Naya Referring Provider Speciality Physician Organ Installer Referred Provider Specialty Podiatry General Notes Chandrika Person 04:01:44 PM >patient needs an appt with Haydee Suarez Brynn 08/09/2024 08:25:18 AM > faxed to [facility] PodiatryHaydee Brynn 08/09/2024 04:08:49 PM > [...] W/U Status Risk Notes Problem Morbid obesity (703341367) Morbid obesity (E66.01) Active confirmed Problem Paresthesia (R20.2) Active confirmed Vital Signs Heart Rate 96 /min 08/08/2024 Blood pressure diastolic 24 mm Hg 08/08/2024 Height 66.50 in 08/08/2024 Blood pressure systolic 120 mm Hg 08/08/2024 Weight 266.2 lbs 08/08/2024 BMI 42.32 kg/m2 08/08/2024 Encounters Encounter Location Date Provider Diagnosis [facility] [address] [facility] [address] [facility] [address] [place], [place] [id number] 11/17/2023 Matthew Glen Arthralgia of right temporomandibular joint M26.621 and Morbid obesity E66.01 [facility] [address] [facility] [address] [place], [place] [id number] 08/08/2024 Chandrika Crowdy Paresthesia R20.2 [facility] [address] [facility] [address] [place], [place] [id number] 01/31/2024 Matthew Aleksandra Assessments Encounter Date Diagnosis (ICD Code) Assessment [...] STEVEN WILSON CROSSBLUE SHIELD [address] [place] [address] [id number] DIONICIO CHRISTIANSEN Self - patient is the insured Medical (General) History Medical History History ICD Code Allergic Rhinitis Depression Surgical History Surgery Date(Month/Year) [place] Teeth 2011
--- OUTSIDE RECORDS SUMMARY | 2024-11-04 15:35 | XMS_ITS | Clinical Summary ---
Author Organization [facility] Address [address] [place] [address] Care Team Providers Care Snuff Blender Name Role Phone Matthew Lake MD Primary Care Provider [phone] Allergies Active Allergy Reactions Criticality Noted Date [...] often do you attend chur ch or gnosticist services? Never 06/14/2023 Do you belong to any clubs o r organizations such as congregation groups, unions, fraternal or athletic groups, or [...] Recorded Patient Health Questionnaire-2 Score 0 03/07/2023 [facility] - Occupational Stress Questionnaire Answer Date [...] place to sleep or slept in a mcc (including now)? No 06/14/2023 [place] Depression Scale Answer Date Recorded [place] Depression Scale Total 0 04/10/2023 The thought [...] drink first t antoinette in the morning (EYE-FILTRATION PLANT MECHANIC) to steady your nerves or to get rid of a hangover? 0 06/14/2023 CAGE Questionnaire Score 0 024 Utilities Answer Date Recorded In the past 12 months has th e [employer], gas, oil, or water Market [employer] Information threatened to shut off services in your [...] Vaccines (1 - 3-dose SCDM series) 2021 [id number] Vaccine (1 - season) 2023 UK[facility]-Depression Screening [...] this topic Medical Devices Implanted Type Area Video Systems Engineer Device Identifier Shelf Expiration Date Model / Serial / Lot Stent Zimlevi 7fr X 7cm - [id number] Implanted:Qty: 1 on 06/15/2023 by Danae Hall, RN at [id number] 02/24/2026 [id number] / / [id number] Procedures Procedure Name Priority Date/Time Associated Diagnosis [...] ORDERABLES Final Resu lt Performing Organization Address [facility] Co de Phone Number [facility] [address] [place] [address] * Hepatitis C Antibody (08/05/2022 3:14 PM EDT) Hepatitis C Antibody Negative Negative 08/05/2022 7:09 PM EDT [facility] Blood Venous blood specimen / Unknown Venipuncture / Unknown 08/05/2022 3:14 PM EDT 08/05/2022 6:30 PM EDT Result Mary Gonzalez MD LAB BLOOD ORDERABLES Final Resu lt Performing Organization Address [facility] Co de Phone Number [facility] [address] [place] [address] * (ABNORMAL) Pap Test (12/15/2021 5:12 PM EDT) Case Report Cytology Case: [id number] Authorizing Provider: Esha Vogt APRN, Collected: 12/15/2021 1712 CNM Ordering Location: Obstetrics & Gynecology Received: 12/17/2021 0945 First Screen: Rosina Julio Pathologist: Erika Briggs MD Specimen: ThinPrep Pap Test, Liquid-Based Cervical/Vaginal, CERVICAL/VAGINAL 12/21/2021 4:18 PM EDT [facility] Interpretation LOW GRADE SQUAMOUS INTRAEPITHELIAL LESION (LSIL)(A) 12/21/2021 4:18 PM EDT [facility] at 1618 EDT Specimen Adequacy Satisfactory for evaluation; endocervical/michael sformation zone component present. Slide scanned and imaged by ThinPrep Imaging System with manual review of all selected sanchez. 12/21/2021 4:18 PM EDT [facility] Cervical cytology is a screening [...] results is suggested (please call Microbiology at [phone] for results). 12/21/2021 4:18 PM EDT [facility] Menstrual Status Cyclic 12/22/19 4:18 PM EDT [facility] Contraceptive History Not Applicable 12/21/2021 4:18 PM EDT [facility] Screening Type Previous or Suspected Abnormality 12/21/2021 4:18 PM EDT [facility] HPV Testing Requested? Request HPV Testing Regardless of Pap Test Findings 12/21/2021 4:18 PM EDT [facility] Infection History Human Papillomavirus 12/21/2021 4:18 PM EDT [facility] Previous Cancer History No 12/21/2021 4:18 PM EDT [facility] Previous or Suspected Abnormality Previous Abnormal Pap 12/21/2021 4:18 PM EDT [facility] Clinical Information R87.622 - Pap smear abnormality of vagina with LGSIL [ICD-10-CM] 12/21/2021 4:18 PM EDT [facility] Last Menstrual Period 11/26/2021 12/21/2021 4:18 PM EDT [facility] Swab Vaginal and cervical cytologic material / Unknown Non-blood Collection / Unknown 12/15/2021 5:12 PM EDT 12/17/2021 9:45 AM EDT Esha Vogt APRN, CNM LAB CYTOLOGY ORDERA BLES Final Result [facility] [address] [place] [address] from Last 3 Months or Most Recently Relevant to [place] [address] [place] [address] URI Member Subscriber Plan / Payer ( fective 2020-Present) Name:Yancy Magallon Relation to Subscriber:Self Name:Yancy Magallon Payer ID:[id number] (NAIC) Type:Not on file Address: [address] [place] [address] ANTH Advance Directives * Full Code (Latest Code Status on File) Date Activated Date Inactivated Comments 06/13/2023 5:42 AM 06/16/2023 7:08 PM Question Answer Comments Patient has decision-making capacity? Yes * Full Code Date Activated Date Inactivated Comments 06/09/2023 10:31 AM 06/11/2023 5:37 PM Question Answer Comments Patient has decision-making capacity? Yes Care Teams Snuff Blender Relationship Specialty Start Date End Date Matthew Lake MD [facility] [place] [address] PCP - General 08/31/23
--- OUTSIDE RECORDS SUMMARY | 2024-11-04 15:35 | XMS_ITS | Encounter Summary ---
Author Organization Healthcare Address [address] [place] [address] Care Team Providers Care Performance Improvement Coordinator Name Role Phone Namita Murdock APRN Primary Care Provider [phone] Chichi Chicas RN Unavailable [phone] Matthew Lake MD Primary Care Provider + [phone] Encounter Details Date Type Department Care Team (Late st Contact Info) Description 10/11/2022 Outside Procedure External Location [address] [place] [address] Pranav Gonzalez MD [address] [place] [address] Social History Tobacco Use Types [...] often do you attend chur ch or temple services? More than 4 times per year 11/10/2020 Do you belong to any clubs o r organizations such as holiness groups, unions, fraternal or athletic groups, or [...] 0 12/01/2020 [facility] - Occupational Stress Questionnaire Answer Date Recorded [...] place to sleep or slept in a group home (including now)? No 11/10/2020 Comments Yes [...] AM EDT Narrative 10/11/2022 3:12 [place] [address] Name: YANCY ARMENTA Exam Date: 10/11/2022 : 1995 Age 27 Gender: F Physician: Facility: [facility] Facility HSV: Exam: RT UPPER QUADRANT [...] Thank you for referring YANCY ARMENTA to [facility]. Legally authenticated by DANIELA CEE 2022-10-11 11:05:13 Procedure Note Provider, Generic [place] - 10/11/2022 [place] [address] Name: YANCY ARMENTA Exam Date: 10/11/2022 : 1995 Age 27 Gender: F Physician: Facility: [facility] Facility HSV: Exam: RT UPPER QUADRANT [...] Thank you for referring YANCY ARMENTA to [facility]. Legally authenticated by DANIELA CEE 2022-10-11 [...] documented as of this encounter Care Teams Performance Improvement Coordinator Relationship Specialty Start Date End Date Namita Murdock APRN [address] [place] [address] PCP - General Family Medicine 03/02/22 08/30/23 Matthew Lake MD [facility] [address] [address] PCP - General 08/31/23 Chichi Chicas RN [address] [phone] Restaurant Hospitality Manager Internal Medicine 01/11/23 11/29/23 documented as of this encounter
--- OUTSIDE RECORDS SUMMARY | 2024-11-04 15:36 | XMS_ITS | Encounter Summary ---
Author Organization Healthcare Address [address] [place] [address] Care Team Providers Care Gang Supervisor Pipe Lines Name Role Phone Regina Sorensen MD Primary Care Provider [phone] Namita Murdock APRN Primary Care Provider [phone] Chichi Chicas RN Unavailable [phone] Matthew Lake MD Primary Care Provider + [phone] Encounter Details Date Type Department Care Team (Late st Contact Info) Description 01/31/2022 Outside Procedure External Location [address] [place] [address] Provider, Jocelyne Mendez Social History Tobacco Use [...] How often do you attend chur or buddhist services? More than 4 times per year 11/10/2020 Do you belong to any clubs o r organizations such as roman catholic groups, unions, fraternal or athletic groups, or [...] 0 12/01/2020 [facility] - [...] care home (including now)? No 11/10/2020 Comments No Sex [...] phy 01/31/2022 12:5 3 PM EST Generic [place] Provider IMG CT PROCEDURES Fi nal Result documented in this encounter Visit Diagnoses Not on filedocumented in this encounter Care Teams Gang Supervisor Pipe Lines Relationship Specialty Start Date End Date Regina Sorensen MD [address] [place] [address] [place] [address] PCP - General 07/31/20 03/01/22 Namita Murdock APRN [address] [place] [address] PCP - General Family Medicine 03/02/22 08/30/23 Matthew Lake MD [address] [facility] [address] [place] [address] PCP - General 08/31/23 Chichi Chicas RN [address] [address] Healthcare Business Analyst Internal Medicine 01/11/23 11/29/23 documented as of this encounter
== END 2024-11-04 23:59 | disposition home or self-care (01) ==
LOC: LAB 15:33
PROVIDERS: PCP Family Medicine; Visit Provider Obstetrics & Gynecology
DX: Z32.01 Encounter for pregnancy test, result positive (principal); N91.2 Amenorrhea, unspecified
CPT/HCPCS: 36415; 84702

== ENCOUNTER 2024-12-03 15:30 | Outpatient (CLI) | payer BC, SELFPAY ==
--- OUTSIDE RECORDS SUMMARY | 2023-06-07 11:45 | XMS_ITS ---
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 Name Role Phone Matthew Lake Unavailable [phone] Allergies No Known Allergies Results Component Value Reference Range Notes P-Amylase Reviewed date:06/13/2023 01:39:49 PM Interpretation: Performing Lab: Notes/Report: Test performed by [email or web address] [address] [place] [address] , [address], [place] [address] Alphonso Yoo MD, Cost Coordinator CLIA: [id number] Amylase 47 28-100 U/L P-Comprehensive Metabolic Pa quin (CMP) Reviewed date:06/13/2023 01:39:49 PM Interpretation: Performing Lab: Notes/Report: Test performed by [email or web address] [address] [place] [address] , [address], [place] [address] Alphonso Yoo MD, Cost Coordinator CLIA: [id number] Sodium 141 135-145 mEq/L Potassium 5.2 3.5-5.3 mEq/L Chloride 104 97-108 mEq/L CO2 27 22-32 mEq/L Glucose 77 65-99 mg/dL BUN 11 6-20 mg/dL Creatinine 0.72 0.50-1.00 mg/dL Calcium 9.6 8.6-10.4 mg/dL eGFR by Creatinine 116 >59 mL/min/1.73m2 Protein 7.7 6.0-8.3 g/dL Albumin 4.6 3.5-5.3 g/dL Alkaline Phosphatase 100 35-121 IU/L ALT (SGPT) 12 <5-47 IU/L AST (SGOT) 16 <5-40 IU/L Bilirubin, Total <0.2 <0.2-1.2 mg/dL A/G Ratio 1.5 1.1-2.5 mg/dL P-Lipase Reviewed date:06/13/2023 01:39:49 PM Interpretation: Performing Lab: Notes/Report: Test performed by [email or web address] [address] [place] [address] , [address], [place] [address] Alphonso Yoo MD, Cost Coordinator CLIA: [id number] Lipase 23.0 13.0-60.0 u/L REASON FOR VISIT referral from [facility]-elevated liver functions Medications Medication SIG (Take, Route, Frequency, Duration) Notes Start Date End Date Status Hyoscyamine Sulfate 0.125 MG 1 tablet Orally every 4 hrs as needed 06/07/2023 Active Zoloft 25 MG 1 tablet Orally Once a day; Duration: 30 day(s) Active Vital Signs Blood pressure systolic 122 mm Hg 06/07/19 24 Blood pressure diastolic 78 mm Hg 024 Heart Rate 111 /min 06/07/2023 Height 66.50 in 06/07/2023 Weight 254.2 lbs 06/07/2023 BMI 40.41 kg/m2 06/07/2023 Encounters Encounter Location Date Provider Diagnosis [facility] [address] [facility] [address] [facility] [address] [facility] [place] [id number] 06/07/2023 Matthew Mcdonough RUQ abdominal pain R10.11 ; Elevated AST (SGOT) R74.01 and Elevated lipase R74.8 Assessments Encounter Date Diagnosis (ICD Code) Assessment Notes Treatment Notes Treatment Clinical Notes Section Notes 06/07/2023 RUQ abdominal pain (ICD-10 - R10.11) ER records including note, labs and CT scan report reviewed in office today 06/07/2023 Elevated AST (SGOT) (ICD-10 - R74.01) 06/07/2023 Elevated lipase (ICD-10 - R74.8) Plan Of Treatment Medication Medication Name Sig Start Date Stop Date Notes Hyoscyamine Sulfate 0.125 MG 1 tablet Or ally every 4 hrs as needed 06/07/2023 Treatment Notes Assessment Notes RUQ abdominal pain ER records including note, labs and CT scan report reviewed in office today Pending Test Test Name Order Date Ultrasound : Right Upper Quadrant 2023 Next Appt Details Follow Up: via phone to repo rt test results, Reason: Progress Notes * TAURUS ARMENTAOB:1995 (29 yo F)Acc No.[id number]:06/07/2023 Progress Notes Patient: DIONICIO DAS Provider: Sis Lake M.D. :1995 A ge:28 Y S ex:Female Date:06/07/2023 Address:[address] [place], [place] [id number] Subjective: * Chief Complaints: * 1 . referral from [facility]-elevated liver functions. * HPI: H PI: 28 year old female presents with c/o Patient is here today for?Pt here to establish care as new pt, states she did not have PCP before coming here. Pt states she had elevated liver enzymes at OB and was referred. Pt was also referred to general surgery for gallstones. Pt states she has been seen at [facility] ER a couple times for rt upper quadrant pain and had confirmed gallstones on CT. * ROS: D ERMATOLOGY: no R deedee. n o H umm. G ASTROENTEROLOGY: no N ausea. n o V omiting. U ROLOGY: no D ifficulty urinating. n o B lood in urine. * Medical History: A llergic Rhinitis, Depression. * Surgical History: W isdom Teeth 2010. * Family History: F ather: alive 46 yrs, diagnosed with Heart Disease, Stroke, Cancer. M other: alive 45 yrs, diagnosed with Diabetes, Heart Disease, Cancer. P aternal Grand Father: diagnosed with Heart Disease, Stroke. M aternal Grand Father: diagnosed with Cancer. 1 sister(s) - healthy. 1 daughter(s) . . * Social History: C affeine: yes, frequency:daily diet soda. 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 Home smoke detector use: yes. Marital Status: . 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 Past smoking status: never smoked. Occup. exposure: none. Recreational drug use: no. Alcohol: Yes, occasional. Sexually active: yes. Travel ouside [place]: no. * Medications: T linwood Zoloft 25 MG Tablet 1 tablet Orally Once a day , Medication List reviewed and reconciled with the patient * Allergies: N .K.D.A. Objective: * Vitals: W t:254.2, Temp:98.0, BP:122/78, HR:111, Nurse:kk, Ht: 66.50, BMI:40.41. * Examination: G eneral Examination: General Appearance: N AD. H EENT: u nremarkable.?Oral cavity: n o lesions, mucosa moist and WNL, no erythema. N marcus: s upple, no lymphadenopathy. H eart: R SR. L ungs: c lear to auscultation. A bdomen: b owel sounds present, soft, minimal RUQ tenderness to palpation. S kin: n ormal, no rash. P eripheral pulses: n ormal (2+) bilaterally. E xtremities: n o leg edema. ? Assessment: * Assessment: 1. R UQ abdominal pain - R10.11 (Primary) 2 . E levated AST (SGOT) - R74.01? 3. E levated lipase - R74.8 Plan: * Treatment: Value Reference Range A mylase 47 28-100 - U/L * Krystal Merrill 06/13/2023 1: 39:07 PM >Left voicemail informing of normal lab results ?LAB: P-Comprehensive Metabolic Panel (CMP) (Collection Date & Time - 06/07/2023 03:20 PM)* Value Reference Range A /G Ratio 1.5 1.1-2.5 - mg/dL * A lbumin 4.6 3.5-5.3 - g/dL * A lkaline Phosphatase 100 35-121 - IU/L * A LT (SGPT) 12 <5-47 - IU/L * A ST (SGOT) 16 <5-40 - IU/L * B ilirubin, Total <0.2 <0.2-1.2 - mg/dL * B UN 11 6-20 - mg/dL * C alcium 9.6 8.6-10.4 - mg/dL * C hloride 104 97-108 - mEq/L * C O2 27 22-32 - mEq/L * C reatinine 0.72 0.50-1.00 - mg/dL * G lucose 77 65-99 - mg/dL * P otassium 5.2 3.5-5.3 - mEq/L * S odium 141 135-145 - mEq/L * P rotein 7.7 6.0-8.3 - g/dL * e GFR by Creatinine 116 >59 - mL/min/1.73m2 * Krystal Merrill 06/13/2023 1: 39:07 PM >Left voicemail informing of normal lab results ?Imaging: Ultrasound : Right Upper Quadrant* Esha Schreiber 06/12/2023 11:43 :15 AM > June 2 @ 900am npo midnightAbdoul,Esha 06/12/2023 1:42:49 PM > pt states she has already had this completed Notes: ER records including note, labs and CT scan report reviewed in office today??2.?Elevated AST (SGOT)?LAB: P-Comprehensive Metabolic Panel (CMP) (Collection Date & Time - 06/07/2023 03:20 PM)* Value Reference Range A /G Ratio 1.5 1.1-2.5 - mg/dL * A lbumin 4.6 3.5-5.3 - g/dL * A lkaline Phosphatase 100 35-121 - IU/L * A LT (SGPT) 12 <5-47 - IU/L * A ST (SGOT) 16 <5-40 - IU/L * B ilirubin, Total <0.2 <0.2-1.2 - mg/dL * B UN 11 6-20 - mg/dL * C alcium 9.6 8.6-10.4 - mg/dL * C hloride 104 97-108 - mEq/L * C O2 27 22-32 - mEq/L * C reatinine 0.72 0.50-1.00 - mg/dL * G lucose 77 65-99 - mg/dL * P otassium 5.2 3.5-5.3 - mEq/L * S odium 141 135-145 - mEq/L * P rotein 7.7 6.0-8.3 - g/dL * e GFR by Creatinine 116 >59 - mL/min/1.73m2 * Michelle Merrilllle 06/13/2023 1: 39:07 PM >Left voicemail informing of normal lab results ?Imaging: Ultrasound : Right Upper Quadrant* Esha Schreiber 06/12/2023 11:43 :15 AM > June 19 @ 900am npo midnightWard,Esha 06/12/2023 1:42:49 PM > pt states she has already had this completed 3.?Elevated lipase?LAB: P-Amylase (Collection Date & Time - 06/07/2023 03:20 PM)* Value Reference Range A mylase 47 28-100 - U/L * Krystal Merrill 06/13/2023 1: 39:07 PM >Left voicemail informing of normal lab results ?LAB: P-Lipase (Collection Date & Time - 06/07/2023 03:20 PM)* Value Reference Range L ipase 23.0 13.0-60.0 - u/L * Krystal Merrill 06/13/2023 1: 39:07 PM >Left voicemail informing of normal lab results ?Imaging: Ultrasound : Right Upper Quadrant* Esha Schreiber 06/12/2023 11:43 :15 AM > June 19 @ 900am npo midnightWard,Esha 06/12/2023 1:42:49 PM > pt states she has already had this completed * Procedure Codes: 3 6415 VENIPUNCT, ROUTINE* * Follow Up: v ia phone to report test results * Images: Billing Information: * Visit Code: 46009 Office Visit, New Pt., Level 4. * Procedure Codes: 27302 VENIPUNCT, ROUTINE*. * Electronic signature of Melisa Lake MD on 12/04/2024 at 10:50 AM EDT Sign off status: Pending * Provider: Sis Lake M.D. Date: 06/07/2023 Generated for Kristal allen/Shamika/eTryleysmitting on: 12/04/2024 10:50 AM EDT History and Physical Notes * HPI (History of Present Illness) Category Sub-Category Detail Notes Category Not es HPI Patient is here today for Pt her e to establish care as new pt, states she did not have PCP before coming here. Pt states she had elevated liver enzymes at OB and was referred. Pt was also referred to general surgery for gallstones. Pt states she has been seen at [facility] ER a couple times for rt upper quadrant pain and had confirmed gallstones on CT Examination Category Sub-Category Detail Notes Category Not es General Examination HEENT: unremarkable Heart: RSR Lungs: clear to auscultatio n Abdomen: bowel sounds present , soft, minimal RUQ tenderness to palpation Extremities: no leg edema General Appearance: NAD Skin: normal, no rash Neck: supple, no lymphaden opathy Oral cavity: no lesions, mucosa m oist and WNL, no erythema Peripheral pulses: normal (2+) bilatera lly
--- OUTSIDE RECORDS SUMMARY | 2023-06-30 05:45 | XMS_ITS ---
Author Organization [facility] Address 1210 [facility] [address] [place] [phone] Care Team Providers Care Quality Checker Name Role Phone Matthew Lake Unavailable [phone] Allergies No Known Allergies REASON FOR VISIT Tonsil Swollen and Sore Encounters Encounter Location Date Provider Diagnosis Petra 1210 [facility] [address] [place] [phone] 06/30/2023 Matthew Lake Plan Of Treatment No Information Progress Notes * KUMAR ARMENTAJAMILANDOB:1995 (29 yo F)Acc No.[id number]:06/30/2023 Progress Notes Patient: DIONICIO DAS Provider: Sis Lake M.D. :1995 A ge:28 Y S ex:Female Date:06/30/2023 Address:[address] [place], [place] [id number] Subjective: * Chief Complaints: * 1 . [...] 0 06/30/2023 Generated for Kristal allen/Shamika/Kathitting on: 0 12/04/2024 10:50 AM EDT
--- OUTSIDE RECORDS SUMMARY | 2023-10-09 09:45 | XMS_ITS ---
Author Organization [facility] Address 1210 [facility] [address] [place] [phone] Care Team Providers Care Lead Former Name Role Phone [place], Matthew Unavailable [phone] Allergies No Known Allergies REASON FOR VISIT [...] Encounter Location Date Provider Diagnosis Laya 1210 [facility] [address] [place] [phone] 10/09/2023 Matthew Lake Arthralgia of right temporomandibular [...] Notes * MACARIO ARMENTANDOB:1995 (29 yo F)Acc No.[id number]:10/09/2023 Progress Notes Patient: DIONICIO DAS Provider: Sis Lake M.D. :1995 A ge:28 Y S ex:Female Date:10/09/2023 Address:[address] [place], [place] [id number] Subjective: * Chief Complaints: * 1 . [...] * Images: Billing Information: * Visit Code: 85464 Office Visit, Est Pt., Level 3. * Procedure Codes: * Electronic signature of Melisa Lake MD on 12/04/2024 at 10:50 AM EDT Sign off status: Pending * Provider: Sis Lake M.D. Date: 10/09/2023 Generated for Kristal allen/Shamika/Helene on: 0 12/04/2024 10:50 AM EDT History and Physical [...]
--- OUTSIDE RECORDS SUMMARY | 2023-11-17 11:30 | XMS_ITS ---
Author Organization [facility] Address [address] [place] [phone] Care Team Providers Care Top Flavor Attendant Name Role Phone Aleksandra Matthew Unavailable [phone] Allergies No Known Allergies Reason For Referral Reason Will need to find a provider Diagnosis 1 Arthralgia of right temporomandibular joint (M26.621) [facility] Referring Provider First Name Matthew Referring [...] so they can request an appointment online; collection agent said she would be on the lookout [...] W/U Status Risk Notes Problem Morbid obesity (052238708) Morbid obesity (E66.01) Active confirmed Vital Signs Blood pressure systolic 120 mm Hg 11/17/19 24 Blood pressure diastolic 80 mm Hg 024 Heart Rate 109 /min 11/17/2023 Height 66.50 in 11/17/2023 Weight 262.6 lbs 11/17/2023 BMI 41.75 kg/m2 11/17/2023 Encounters Encounter Location Date Provider Diagnosis [facility] [address] [place] [phone] 11/17/2023 Matthew Lake Arthralgia of right temporomandibular [...] Referrals Referral Date Details 11/17/2023 11/17/2023, Will nee d to find a provider, . Oral surgery Next Appt Details Follow Up: via phone to repo rt progress, Reason: Progress Notes * KUMAR ARMENTAALVARADOOB:1995 (29 yo F)Acc No.[id number]:11/17/2023 Progress Notes Patient: DIONICIO DAS Provider: Sis Lake M.D. :1995 A ge:28 Y S ex:Female Date:11/17/2023 Address:[address] [place] [address] [place], [id number] Subjective: * Chief Complaints: * 1 . [...] * Images: Billing Information: * Visit Code: 00200 Office Visit, Est Pt., Level 3. * Procedure Codes: * Electronic signature of Melisa Lake MD on 12/04/2024 at 10:50 AM EDT Sign off status: Pending * Provider: Sis Lake M.D. Date: 0 11/17/2023 Generated for Kristal allen/Shamika/eTryleysmitting on: 0 12/04/2024 10:50 AM EDT History [...]
--- OUTSIDE RECORDS SUMMARY | 2024-08-08 11:45 | XMS_ITS ---
Author Organization [facility] Address [address] [place] [id number] Care Team Providers Care Property Loss Insurance Claim Adjuster Name Role Phone Matthew Lake Unavailable [phone] Chandrika Person Unavailable [phone] Allergies No Known Allergies Results Component Value Reference Range Notes P-Vitamin B12 Reviewed date:08/14/2024 04:52:54 PM Interpretation:Normal Performing Lab: Notes/Report: Test performed by [facility] [address] [place] [address] , [address], [place] [address] Alphonso Yoo MD, Contact Agent CLIA: [id number] Vitamin B12 023 922-4800 pg/mL P-Comprehensive Metabolic Pa quin (CMP) Reviewed date:08/14/2024 04:52:05 PM Interpretation:Normal Performing Lab: Notes/Report: Test performed by [facility] [address] [place] [address] , [address], [place] [address] Alphonso Yoo MD, Contact Agent CLIA: [id number] Sodium 140 135-145 mmol/L Potassium 4.9 3.5-5.3 [...] Interpretation:Normal Performing Lab: Notes/Report: Test performed by [facility] [address] [place] [address] , [address], [place] [address] Alphonso Yoo MD, Contact Agent CLIA: [id number] TSH reflex to FT4 1.23 0.43-5.25 mU/L Reason For Referral Diagnosis 1 Paresthesia (R20.2) Referral Organization [facility] Referring Provider First Name Chandrika Referring Provider Last Name Naya Referring Provider Speciality Physician Agency Sales Representative Referred Provider Specialty Podiatry General Notes Chandrika Person 04:01:44 PM >patient needs an appt with Haydee Suarez Brynn 08/09/2024 08:25:18 AM > faxed to [facility] PodiatrHaydee bustamante Brynn 08/09/2024 04:08:49 PM > 09/10/2024 at 08:30am Referral Priority Routine REASON FOR VISIT pain in little toe Problems Problem Type SNOMED Code ICD Code Onset Dates Problem Status W/U Status Risk Notes Problem Paresthesia (98730626) Paresthesia (R20.2) Active confirmed Vital Signs Blood pressure systolic 120 mm Hg 08/09/19 25 Blood pressure diastolic 24 mm Hg 025 Heart Rate 96 /min 08/08/2024 Height 66.50 in 08/08/2024 Weight 266.2 lbs 08/08/2024 BMI 42.32 kg/m2 08/08/2024 Encounters Encounter Location Date Provider Diagnosis [facility] [address] [place] [phone] 08/08/2024 Chandrika Person Paresthesia R20. 2 Assessments Encounter Date Diagnosis (ICD Code) Assessment Notes Treatment Notes Treatment Clinical Notes Section Notes 08/08/2024 Paresthesia (ICD-10 - R20.2) Plan Of Treatment Referrals Referral Date Details 08/08/2024 08/08/2024 Next Appt Details Follow Up: via phone to repo rt test results, Reason: Progress Notes * TAURUS ARMENTAOB:1995 (29 yo F)Acc No.[id number]:08/08/2024 Progress Notes Patient: DIONICIO DAS Provider: LAKHWINDER Wallis :1995 A ge:29 Y S ex:Female Date:08/08/2024 Address:[address] [place], [place] [phone] Subjective: * Chief Complaints: * 1 . [...] Treatment: Value Reference Range V itamin B12 988 344-9048 - pg/mL * Rosaura Fair 08/14/2024 04:5 [...] * Images: Billing Information: * Visit Code: 30883 Office Visit, Est Pt., Level 3. * Procedure Codes: * Electronic signature of LAKHWINDER Lala on 12/04/2024 at 10:50 AM EDT Sign off status: Pending * Provider: LAKHWINDER Wallis Date: 0 08/08/2024 Generated for Paulai tiffany/Shamika/eTransmitting on: 0 12/04/2024 10:50 AM EDT History [...]
--- OUTSIDE RECORDS SUMMARY | 2024-12-04 10:50 | XMS_ITS | Clinical Summary ---
Author Organization [facility] Address [address] [place] [address] Care Team Providers Care Data Solutions Architect Name Role Phone Matthew Lake MD Primary Care Provider [phone] Allergies Active Allergy Reactions Criticality Noted Date [...] often do you attend chur ch or jehovah's witness services? Never 06/14/2023 Do you belong to any clubs o r organizations such as tenriism groups, unions, fraternal or athletic groups, or [...] Recorded Patient Health Questionnaire-2 Score 0 03/07/2023 [facility]at ional [facility] - Occupational Stress Questionnaire Answer Date Recorded [...] in a prison (including now)? No 06/14/2023 [place] Depression Scale Answer Date Recorded [place] Depression Scale Total 0 04/10/2023 The thought [...] drink first t antoinette in the morning (EYE-INDEPENDENT TRADER) to steady your nerves or to get rid of a hangover? 0 06/14/2023 CAGE Questionnaire Score 0 024 Utilities Answer Date Recorded In the past 12 months has th e [employer], gas, oil, or water [employer] threatened to shut off services in your [...] Vaccines (1 - 3-dose SCDM series) 2021 [facility]-Depression Screening 04/10/2024 04/10/2023, 02/17 [id number] Vaccine ( season) 2024 [facility]-Influenza Vaccine (#1) 2024 12/05/2022, [facility]Y-Pap Smear [...] this topic Medical Devices Implanted Type Area Layout Inspector Device Identifier Shelf Expiration Date Model / Serial / Lot Stent Xochitl 7fr X 7cm - [id number] Implanted:Qty: 1 on 06/15/2023 by Danae Hall, RN at [facility]-[id number] 02/24/2026 [id number] / / [id number] Procedures Procedure Name Priority Date/Time Associated Diagnosis [...] ORDERABLES Final Resu lt Performing Organization Address City/[facility] Co de Phone Number [facility] [address] [place] [address] * Hepatitis C Antibody (08/05/2022 3:14 PM EDT) Hepatitis C Antibody Negative Negative 08/05/2022 7:09 PM EDT [facility] Blood Venous blood specimen / Unknown Venipuncture / Unknown 08/05/2022 3:14 PM EDT 08/05/2022 6:30 PM EDT Result Mary Gonzalez MD LAB BLOOD ORDERABLES Final Resu lt Performing Organization Address City/[facility] Co de Phone Number [facility] [address] [place] [address] * (ABNORMAL) Pap Test (12/15/2021 5:12 PM EDT) Case Report Cytology Case: [id number] Authorizing Provider: Esha Vogt APRN, Collected: 12/15/2021 1712 CNM Ordering Location: Obstetrics & Gynecology Received: 12/17/2021 0945 First Screen: Rosina Julio Pathologist: Erika Briggs MD Specimen: ThinPrep Pap Test, Liquid-Based Cervical/Vaginal, CERVICAL/VAGINAL 12/21/2021 4:18 PM EDT [facility] Interpretation LOW GRADE SQUAMOUS INTRAEPITHELIAL LESION (LSIL)(A) 12/21/2021 4:18 PM EDT [facility] at 1618 EDT Specimen Adequacy Satisfactory for evaluation; endocervical/michael sformation zone component present. Slide scanned and imaged by ThinPrep Imaging System with manual review of all selected sanchez. 12/21/2021 4:18 PM EDT [facility] Cervical cytology is a screening test [...] results is suggested (please call Microbiology at [phone] for results). 12/21/2021 4:18 PM EDT [facility] Menstrual Status Cyclic 12/22/19 4:18 PM EDT [facility] Contraceptive History Not Applicable 12/21/2021 4:18 PM EDT [facility] Screening Type Previous or Suspected Abnormality 12/21/2021 4:18 PM EDT [facility] HPV Testing Requested? Request HPV Testing Regardless of Pap Test Findings 12/21/2021 4:18 PM EDT [facility] Infection History Human Papillomavirus 12/21/2021 4:18 PM EDT [facility] Previous Cancer History No 12/21/2021 4:18 PM EDT [facility] Previous or Suspected Abnormality Previous Abnormal Pap 12/21/2021 4:18 PM EDT [facility] Clinical Information R87.622 - Pap smear abnormality of vagina with LGSIL [ICD-10-CM] 12/21/2021 4:18 PM EDT [facility] Last Menstrual Period 11/26/2021 12/21/2021 4:18 PM EDT [facility] Swab Vaginal and cervical cytologic material / Unknown Non-blood Collection / Unknown 12/15/2021 5:12 PM EDT 12/17/2021 9:45 AM EDT Esha Vogt APRN, CNM LAB CYTOLOGY ORDERA BLES Final Result [facility] [address] [place] [address] from Last 3 Months or Most Recently Relevant to [place] [address] [employer] Member Subscriber Plan / Payer ( fective 2020-Present) Name:Yancy Magallon Relation to Subscriber:Self Name:Yancy Magallon Payer ID:[id number] (NAIC) Type:Not on file Address: [address] [place] [address] ANTH Advance Directives * Full Code (Latest Code Status on File) Date Activated Date Inactivated Comments 06/13/2023 5:42 AM 06/16/2023 7:08 PM Question Answer Comments Patient has decision-making capacity? Yes * Full Code Date Activated Date Inactivated Comments 06/09/2023 10:31 AM 06/11/2023 5:37 PM Question Answer Comments Patient has decision-making capacity? Yes Care Teams Data Solutions Architect Relationship Specialty Start Date End Date Matthew Lake MD [facility] [place] [address] PCP - General 08/31/23
--- OUTSIDE RECORDS SUMMARY | 2024-12-04 10:50 | XMS_ITS | Encounter Summary ---
Author Organization Healthcare Address [address] [place] [address] Care Team Providers Care Supervisor Tower Name Role Phone Regina Sorensen MD Primary Care Provider [phone] Namita Murdock APRN Primary Care Provider [phone] Chichi Chicas RN Unavailable [phone] Matthew Lake MD Primary Care Provider + [phone] Encounter Details Date Type Department Care Team (Late st Contact Info) Description 01/31/2022 Outside Procedure External Location [address] [place] [address] Provider, Jocelyne Mendez Social History Tobacco Use [...] How often do you attend chur or adventism services? More than 4 times per year 11/10/2020 Do you belong to any clubs o r organizations such as episcopalian groups, unions, fraternal or athletic groups, or [...] Recorded Patient Health Questionnaire-2 Score 0 12/01/2020 [facility] - Occupational Stress [...] place to sleep or slept in a long term (including now)? No 11/10/2020 Comments No Sex [...] phy 01/31/2022 12:5 3 PM EST Generic [place] Provider IMG CT PROCEDURES Fi nal Result documented in this encounter Visit Diagnoses Not on filedocumented in this encounter Care Teams Supervisor Tower Relationship Specialty Start Date End Date Regina Sorensen MD [address] [place] [address] [place] [address] PCP - General 07/31/20 03/01/22 Namita Murdock APRN [address] [place] [address] PCP - General Family Medicine 03/02/22 08/30/23 Matthew Lake MD [address] [facility] [address] [place] [address] PCP - General 08/31/23 Chichi Chicas RN [address] [address] Triple Valve Tester Internal Medicine 01/11/23 11/29/23 documented as of this encounter
--- OUTSIDE RECORDS SUMMARY | 2024-12-04 10:50 | XMS_ITS | Patient Health Record ---
Author Organization [facility] Address [address] [place] [id number] Care Team Providers Care Equipment Coordinator Name Role Phone Matthew Lake Unavailable [phone] Chandrika Person Unavailable [phone] Allergies No Known Allergies Results Component Value Reference Range Notes P-Vitamin B12 Reviewed date:08/14/2024 04:52:54 PM Interpretation:Normal Performing Lab: Notes/Report: Test performed by [facility] [employer] [facility] [address] [place] [address] , [address], [place] [address] Alphonso Yoo MD, Dedicated Truck Driver CLIA: [id number] Vitamin B12 501 702-3728 pg/mL P-Comprehensive Metabolic Pa quin (CMP) Reviewed date:08/14/2024 04:52:05 PM Interpretation:Normal Performing Lab: Notes/Report: Test performed by [facility] [employer] [facility] [address] [place] [address] , [address], [place] [address] Alphonso Yoo MD, Dedicated Truck Driver CLIA: [id number] Sodium 140 135-145 mmol/L Potassium 4.9 3.5-5.3 [...] Interpretation:Normal Performing Lab: Notes/Report: Test performed by [facility] [employer] [facility] [address] [place] [address] , [address], [place] [address] Alphonso Yoo MD, Dedicated Truck Driver CLIA: [id number] TSH reflex to FT4 1.23 0.43-5.25 mU/L Reason For Referral Diagnosis 1 Paresthesia (R20.2) Referral Organization [facility] Referring Provider First Name Chandrika Referring Provider Last Name Naya Referring Provider Speciality Physician Gut Cleaner Referred Provider Specialty Podiatry General Notes Chandrika Person 04:01:44 PM >patient needs an appt with Haydee Suarez Brynn 08/09/2024 08:25:18 AM > fax[facility] to [facility] PodiatrHaydee bustamante Brynn 08/09/2024 04:08:49 PM [...] W/U Status Risk Notes Problem Morbid obesity (189970792) Morbid obesity (E66.01) Active confirmed Problem Paresthesia (50753099) Paresthesia (R20.2) Active confirmed Vital Signs Heart Rate 96 /min 08/08/2024 Blood pressure diastolic 24 mm Hg 08/08/2024 Height 66.50 in 08/08/2024 Blood pressure systolic 120 mm Hg 08/08/2024 Weight 266.2 lbs 08/08/2024 BMI 42.32 kg/m2 08/08/2024 Encounters Encounter Location Date Provider Diagnosis [facility] [address] [place] [id number] 08/08/2024 Chandrika Person Paresthesia R 20.2 [facility] [address] [place] [id number] 01/31/2024 Matthew Aleksandra Assessments Encounter Date Diagnosis [...] STEVEN WILSON CROSSBLUE SHIELD [address] [place] [address] [id number] DIONICIO CHRISTIANSEN Self - patient is the insured Medical (General) History Medical History History ICD Code Allergic Rhinitis Depression Surgical History Surgery Date(Month/Year) [place] Teeth 2010
--- OUTSIDE RECORDS SUMMARY | 2024-12-04 10:50 | XMS_ITS | Encounter Summary ---
Author Organization Healthcare Address [address] [place] [address] Care Team Providers Care Continuous Improvement Manager Name Role Phone Namita Murdock APRN Primary Care Provider [phone] Chichi Chicas RN Unavailable [phone] Matthew Lake MD Primary Care Provider + [phone] Encounter Details Date Type Department Care Team (Late st Contact Info) Description 10/11/2022 Outside Procedure External Location [address] [place] [address] Pranav Gonzalez MD [address] [place] [address] Social History Tobacco Use Types [...] often do you attend chur ch or taoist services? More than 4 times per year 11/10/2020 Do you belong to any clubs o r organizations such as confucianism groups, unions, fraternal or athletic groups, or [...] Recorded Patient Health Questionnaire-2 Score 0 12/01/2020 [facility] - Occupational Stress Questionnaire Answer Date [...] long term (including now)? No 11/10/2020 Comments Yes Sex [...] AM EDT Narrative 10/11/2022 3:12 [place] [address] Name: YANCY ARMENTA Exam Date: 10/11/2022 : 1995 Age 27 Gender: F Physician: Facility: [facility] Facility HSV: Exam: RT UPPER [...] Thank you for referring YANCY ARMENTA to Psychiatric. Legally authenticated by DANIELA CEE 2022-10-11 11:05:13 Procedure Note Provider, Generic [place] - 10/11/2022 [place] [address] Name: YANCY ARMENTA Exam Date: 10/11/2022 : 1995 Age 27 Gender: F Physician: Facility: [facility] Facility HSV: Exam: RT UPPER [...] Thank you for referring YANCY ARMENTA to Psychiatric. Legally authenticated by DANIELA CEE 2022-10-11 11:05:13 [...] documented as of this encounter Care Teams Continuous Improvement Manager Relationship Specialty Start Date End Date Namita Murdock APRN [address] [place] [address] PCP - General Family Medicine 03/02/22 08/30/23 Matthew Lake MD [facility]ending [facility] to [facility] [address] [address] PCP - General 08/31/23 Chichi Chicas RN [address] [phone] Preconstruction Manager Internal Medicine 01/11/23 11/29/23 documented as of this encounter
== END 2024-12-03 23:59 | disposition home or self-care (01) ==
LOC: LAB.DROPOF 12-04 10:46
PROVIDERS: PCP Obstetrics & Gynecology; Visit Provider Obstetrics & Gynecology
DX: Z32.01 Encounter for pregnancy test, result positive (principal); N97.0 Female infertility associated with anovulation; E66.9 Obesity, unspecified; N92.6 Irregular menstruation, unspecified
CPT/HCPCS: 87086

== ENCOUNTER 2024-12-04 16:13 | Outpatient (CLI) | payer BC, SELFPAY ==
--- OUTSIDE RECORDS SUMMARY | 2024-12-04 16:15 | XMS_ITS | Encounter Summary ---
Author Organization Healthcare Address [address] [place] [address] Care Team Providers Care Barrel Liner Name Role Phone Namita Murdock APRN Primary Care Provider [phone] Chichi Chicas RN Unavailable [phone] Matthew Lake MD Primary Care Provider + [phone] Encounter Details Date Type Department Care Team (Late st Contact Info) Description 10/11/2022 Outside Procedure External Location [address] [place] [address] Pranav Gonzalez MD [address] [place] [address] Social History Tobacco Use Types [...] often do you attend chur ch or protestant services? More than 4 times per year [...] Recorded Patient Health Questionnaire-2 Score 0 12/01/2020 [facility] - Occupational Stress Questionnaire Answer [...] a residential (including now)? No 11/10/2020 Comments Yes Sex [...] AM EDT Narrative 10/11/2022 3:12 [place] [address] Name: YANCY ARMENTA Exam Date: 10/11/2022 : 1995 Age 27 Gender: F Physician: Facility: [facility] Facility HSV: Exam: RT UPPER QUADRANT [...] Thank you for referring YANCY ARMENTA to [facility]. Legally authenticated by DANIELA CEE 2022-10-11 11:05:13 Procedure Note Provider, Generic [place] - 10/11/2022 [place] [address] Name: YANCY ARMENTA Exam Date: 10/11/2022 : 1995 Age 27 Gender: F Physician: Facility: [facility] Facility HSV: Exam: RT UPPER QUADRANT [...] Thank you for referring YANCY ARMENTA to [facility]. Legally authenticated by DANIELA CEE 2022-10-11 11:05:13 [...] documented as of this encounter Care Teams Barrel Liner Relationship Specialty Start Date End Date Namita Murdock APRN [address] [place] [address] PCP - General Family Medicine 03/02/22 08/30/23 Matthew Lake MD [facility] [address] [address] PCP - General 08/31/23 Chichi Chicas RN [address] [phone] Substation Manager Internal Medicine 01/11/23 11/29/23 documented as of this encounter
--- OUTSIDE RECORDS SUMMARY | 2024-12-04 16:15 | XMS_ITS | Clinical Summary ---
Author Organization [facility] Address [address] [place] [address] Care Team Providers Care Mechanic Chief Name Role Phone Matthew Lake MD Primary Care Provider [phone] Allergies Active Allergy Reactions Criticality Noted Date [...] often do you attend chur ch or mosque services? Never 06/14/2023 Do you belong to any clubs o r organizations such as jain groups, unions, fraternal or athletic groups, or [...] Recorded Patient Health Questionnaire-2 Score 0 03/07/2023 [facility] Occupat ional [facility] - Occupational Stress Questionnaire Answer Date [...] place to sleep or slept in a fdc (including now)? No 06/14/2023 [place] Depression Scale Answer Date Recorded [place] Depression Scale Total 0 04/10/2023 The thought [...] drink first t antoinette in the morning (EYE-PRE K TEACHER) to steady your nerves or to get rid of a hangover? 0 06/14/2023 CAGE Questionnaire Score 0 024 Utilities Answer Date Recorded In the past 12 months has th e [employer], gas, oil, or water [employer] threatened to shut off services in your [...] series) 2021 [facility]-Depression Screening 04/10/2024 04/10/2023, 02/17 [id number]-20 Vaccine ( season) 2024 [facility]-Influenza Vaccine (#1) [...] this topic Medical Devices Implanted Type Area Outreach Librarian Device Identifier Shelf Expiration Date Model / Serial / Lot Stent Xochitl 7fr X 7cm - [id number] Implanted:Qty: 1 on 06/15/2023 by Danae Hall, RN at [facility]-[id number] 02/24/2026 [id number] / / [id number] Procedures Procedure Name Priority Date/Time Associated Diagnosis [...] ORDERABLES Final Resu lt Performing Organization Address City/[facility] Co de Phone Number [facility] [address] [place] [address] * Hepatitis C Antibody (08/05/2022 3:14 PM EDT) Hepatitis C Antibody Negative Negative 08/05/2022 7:09 PM EDT [facility] Blood Venous blood specimen / Unknown Venipuncture / Unknown 08/05/2022 3:14 PM EDT 08/05/2022 6:30 PM EDT Result Mary Gonzalez MD LAB BLOOD ORDERABLES Final Resu lt Performing Organization Address City/[facility] Co de Phone Number [facility] [address] [place] [address] * (ABNORMAL) Pap Test (12/15/2021 5:12 PM EDT) Case Report Cytology Case: [id number] Authorizing Provider: Esha Vogt APRN, Collected: 12/15/2021 1712 CNM Ordering Location: Obstetrics & Gynecology Received: 12/17/2021 0945 First Screen: Rosina Julio Pathologist: Erika Briggs MD Specimen: ThinPrep Pap Test, Liquid-Based Cervical/Vaginal, CERVICAL/VAGINAL 12/21/2021 4:18 PM EDT [facility] Interpretation LOW GRADE SQUAMOUS INTRAEPITHELIAL LESION (LSIL)(A) 12/21/2021 4:18 PM EDT [facility] at 1618 EDT Specimen Adequacy Satisfactory for evaluation; endocervical/michael sformation zone component present. Slide scanned and imaged by ThinPrep Imaging System with manual review of all selected sanchez. 12/21/2021 4:18 PM EDT [facility] Cervical cytology is a screening test [...] results is suggested (please call Microbiology at [phone] for results). 12/21/2021 4:18 PM EDT [facility] Menstrual Status Cyclic 12/22/19 4:18 PM EDT [facility] Contraceptive History Not Applicable 12/21/2021 4:18 PM EDT [facility] Screening Type Previous or Suspected Abnormality 12/21/2021 4:18 PM EDT [facility] HPV Testing Requested? Request HPV Testing Regardless of Pap Test Findings 12/21/2021 4:18 PM EDT [facility] Infection History Human Papillomavirus 12/21/2021 4:18 PM EDT [facility] Previous Cancer History No 12/21/2021 4:18 PM EDT [facility] Previous or Suspected Abnormality Previous Abnormal Pap 12/21/2021 4:18 PM EDT [facility] Clinical Information R87.622 - Pap smear abnormality of vagina with LGSIL [ICD-10-CM] 12/21/2021 4:18 PM EDT [facility] Last Menstrual Period 11/26/2021 12/21/2021 4:18 PM EDT [facility] Swab Vaginal and cervical cytologic material / Unknown Non-blood Collection / Unknown 12/15/2021 5:12 PM EDT 12/17/2021 9:45 AM EDT Esha Vogt APRN, CNM LAB CYTOLOGY ORDERA BLES Final Result [facility] [address] [place] [address] from Last 3 Months or Most Recently Relevant to [place] [address] URI Member Subscriber Plan / Payer ( fective 2020-Present) Name:Yancy Magallon Relation to Subscriber:Self Name:Yancy Magallon Payer ID:[id number] (NAIC) Type:Not on file Address: [address] [place] [address] ANTH Advance Directives * Full Code (Latest Code Status on File) Date Activated Date Inactivated Comments 06/13/2023 5:42 AM 06/16/2023 7:08 PM Question Answer Comments Patient has decision-making capacity? Yes * Full Code Date Activated Date Inactivated Comments 06/09/2023 10:31 AM 06/11/2023 5:37 PM Question Answer Comments Patient has decision-making capacity? Yes Care Teams Mechanic Chief Relationship Specialty Start Date End Date Matthew Lake MD [facility] [place] [address] PCP - General 08/31/23
--- OUTSIDE RECORDS SUMMARY | 2024-12-04 16:15 | XMS_ITS | Encounter Summary ---
Author Organization Healthcare Address [address] [place] [address] Care Team Providers Care Director Digital Communications Name Role Phone Regina Sorensen MD Primary Care Provider [phone] Namita Murdock APRN Primary Care Provider [phone] Chichi Chicas RN Unavailable [phone] Matthew Lake MD Primary Care Provider + [phone] Encounter Details Date Type Department Care Team (Late st Contact Info) Description 01/31/2022 Outside Procedure External Location [address] [place] [address] Provider, Jocelyne Mendez Social History Tobacco Use [...] How often do you attend chur or mosque services? More than 4 times per year [...] Recorded Patient Health Questionnaire-2 Score 0 12/01/2020 [facility] - Occupational Stress [...] slept in a correction (including now)? No 11/10/2020 Comments No Sex [...] phy 01/31/2022 12:5 3 PM EST Generic [place] Provider IMG CT PROCEDURES Fi nal Result documented in this encounter Visit Diagnoses Not on filedocumented in this encounter Care Teams Director Digital Communications Relationship Specialty Start Date End Date Regina Sorensen MD [address] [place] [address] [place] [address] PCP - General 07/31/20 03/01/22 Namita Murdock APRN [address] [place] [address] PCP - General Family Medicine 03/02/22 08/30/23 Matthew Lake MD [address] [facility] [address] [place] [address] PCP - General 08/31/23 Chichi Chicas RN [address] [address] Roller Skater Internal Medicine 01/11/23 11/29/23 documented as of this encounter
[2024-12-04 17:02] LABS: Hematocrit 36.3 % (37.0-47.0); Hemoglobin 11.8 g/dL (12.2-16.2); Immature Granulocytes % 0.2 %; Mean Corpuscular HGB Conc 32.5 g/dL (31.8-35.4); Mean Corpuscular Hemoglobin 29.4 pg (27.0-31.2); Mean Corpuscular Volume 90.5 fl (81-99); Nucleated Red Blood Cells % 0 %; Platelet Count 277 K/mm3 (142-424); Red Blood Count 4.01 M/mm3 (4.20-5.40); Red Cell Distribution Width-SD 45.0 fL; White Blood Count 9.6 K/mm3 (4.8-10.8)
[2024-12-04 18:11] LABS: Hepatitis C Ab Qual. W/ RFX NEGATIVE (Negative)
[2024-12-05 11:52] LABS: RPR W/RFX Titers Nonreactive (Nonreactive)
[2024-12-06 05:23] LABS: Hepatitis B Surface Antigen Negative (Negative)
[2024-12-06 06:33] LABS: Rubella Antibodies, IgG <0.90 index (Immune >0.99)
== END 2024-12-04 23:59 | disposition home or self-care (01) ==
LOC: LAB 16:13
PROVIDERS: PCP Family Medicine; Visit Provider Obstetrics & Gynecology
DX: Z34.91 Encounter for supervision of normal pregnancy, unspecified, first trimester (principal); N92.6 Irregular menstruation, unspecified
CPT/HCPCS: 36415; 85025; 86592; 86762; 86787; 86803; 86850; 86870; 87340; 87389

== ENCOUNTER 2024-12-24 08:37 | Outpatient (CLI) | payer BC, SELFPAY ==
--- OUTSIDE RECORDS SUMMARY | 2023-06-30 05:45 | XMS_ITS ---
Author Organization [facility] Address 1210 [facility] [address] [place] [phone] Care Team Providers Care Roll On Man Name Role Phone Matthew Lake Unavailable [phone] Allergies No Known Allergies REASON FOR VISIT Tonsil Swollen and Sore Encounters Encounter Location Date Provider Diagnosis Petra 1210 [facility] [address] [place] [phone] 06/30/2023 Matthew Lake Plan Of Treatment No Information Progress Notes * KUMAR ARMENTAJAMILANDOB:1995 (29 yo F)Acc No.[id number]:06/30/2023 Progress Notes Patient: DIONICIO DAS Provider: Sis Lake M.D. :1995 A ge:28 Y S ex:Female Date:06/30/2023 Address:[address] [place], [place] [id number] Subjective: * Chief Complaints: * 1 . Tonsil Swollen and Sore. * ROS: D ERMATOLOGY: no R deedee. n o H umm. G ASTROENTEROLOGY: no N ausea. n o V omiting. U ROLOGY: no D ifficulty urinating. n o B lood in urine. * Medical History: A llergic Rhinitis, Depression. * Surgical History: W isdom Teeth 2010. * Hospitalization/Major Diagno stic Procedure: D enies Past Hospitalization. * Family History: F ather: alive 46 yrs, diagnosed with Heart Disease, Stroke, Cancer. M other: alive 45 yrs, diagnosed with Diabetes, Heart Disease, Cancer. P aternal Grand Father: diagnosed with Stroke, Heart Disease. M aternal Grand Father: diagnosed with Cancer. 1 sister(s) - healthy. 1 daughter(s) . . * Social History: C affeine: yes, frequency:daily diet soda. 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 Home smoke detector use: yes. Marital Status: . 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 Past smoking status: never smoked. Occup. exposure: none. Recreational drug use: no. Alcohol: Yes, occasional. Sexually active: yes. Travel ouside [place]: no. * Allergies: N .K.D.A. Objective: * Vitals: Assessment: Plan: * Treatment: * Images: Billing Information: * Visit Code: * Procedure Codes: * Electronic signature of Melisa Lake MD on 12/24/2024 at 08:49 AM EDT Sign off status: Pending * Provider: Sis Lake M.D. Date: 0 06/30/2023 Generated for Kristal allen/Shamika/Kathitting on: 1 08:49 AM EDT
--- OUTSIDE RECORDS SUMMARY | 2023-10-09 09:45 | XMS_ITS ---
Author Organization Laya Address 1210 [facility] [address] [place] [phone] Care Team Providers Care Admissions Counselor Name Role Phone [place], Matthew Unavailable [phone] Allergies No Known Allergies REASON FOR VISIT [...] Encounter Location Date Provider Diagnosis Laya 1210 [facility] [address] [place] [phone] 10/09/2023 Matthew Lake Arthralgia of right temporomandibular [...] Notes * MACARIO ARMENTANDOB:1995 (29 yo F)Acc No.[id number]:10/09/2023 Progress Notes Patient: DIONICIO DAS Provider: Sis Lake M.D. :1995 A ge:28 Y S ex:Female Date:10/09/2023 Address:[address] [place], [place] [phone] Subjective: * Chief Complaints: * 1 . [...] * Images: Billing Information: * Visit Code: 87316 Office Visit, Est Pt., Level 3. * Procedure Codes: * Electronic signature of Melisa Lake MD on 12/24/2024 at 08:50 AM EDT Sign off status: Pending * Provider: Sis Lkae M.D. Date: 0 10/09/2023 Generated for Kristal allen/Shamika/Helene on: 08:50 AM EDT History and Physical Notes * [...]
--- OUTSIDE RECORDS SUMMARY | 2023-11-17 11:30 | XMS_ITS ---
[facility] Address [address] [place] [phone] Care Team Providers Care Bunch Trimmer Mold Name Role Phone Aleksandra Matthew Unavailable [phone] Allergies No Known Allergies Reason For Referral [...] so they can request an appointment online; flame annealing machine operator said she would be on the [...] W/U Status Risk Notes Problem Morbid obesity (676464799) Morbid obesity (E66.01) Active confirmed Vital Signs Weight 262.6 lbs 11/17/2023 Blood pressure systolic 120 mm Hg 11/17/19 24 Blood pressure diastolic 80 mm Hg 024 Heart Rate 109 /min 11/17/2023 Height 66.50 in 11/17/2023 BMI 41.75 kg/m2 11/17/2023 Encounters Encounter Location Date Provider Diagnosis [facility] [address] [place] [phone] 11/17/2023 Matthew Lake Arthralgia of right temporomandibular [...] Notes * KUMAR ARMENTAALVARADOOB:1995 (29 yo F)Acc No.[id number]:11/17/2023 Progress Notes Patient: DIONICIO DAS Provider: Sis Lake M.D. :1995 A ge:28 Y S ex:Female Date:11/17/2023 Address:[address] [place] [address] [place], [id number] Subjective: * Chief Complaints: * 1 . [...] * Images: Billing Information: * Visit Code: 03602 Office Visit, Est Pt., Level 3. * Procedure Codes: * Electronic signature of Melisa Lake MD on 12/24/2024 at 08:49 AM EDT Sign off status: Pending * Provider: Sis Lake M.D. Date: 0 11/17/2023 Generated for Kristal allen/Shamika/eTryleysmitting on: 1 08:49 AM EDT History and Physical Notes * [...]
--- OUTSIDE RECORDS SUMMARY | 2024-08-08 11:45 | XMS_ITS ---
[facility] Organization [facility] Address [address] [place] [phone] Care Team Providers Care Brass Polisher Name Role Phone Matthew Lake Unavailable [phone] Chandrika Person Unavailable [phone] Allergies No Known Allergies Results Component Value Reference Range Notes P-Vitamin B12 Reviewed date:08/14/2024 04:52:54 PM Interpretation:Normal Performing Lab: Notes/Report: Test performed by [facility] [address] [place] [address] , [address], [place] [address] Alphonso Yoo MD, Planting Machine Operator CLIA: [id number] Vitamin B12 344 383-9964 pg/mL P-Comprehensive Metabolic Pa quin (CMP) Reviewed date:08/14/2024 04:52:05 PM Interpretation:Normal Performing Lab: Notes/Report: Test performed by [facility] [address] [place] [address] , [address], [place] [address] Alphonso Yoo MD, Planting Machine Operator CLIA: [id number] Sodium 140 135-145 mmol/L Potassium 4.9 3.5-5.3 [...] Interpretation:Normal Performing Lab: Notes/Report: Test performed by [facility] [address] [place] [address] , [address], [place] [address] Alphonso Yoo MD, Planting Machine Operator CLIA: [id number] TSH reflex to FT4 1.23 0.43-5.25 mU/L Reason For Referral Diagnosis 1 Paresthesia (R20.2) Referral Organization [facility] Referring Provider First Name Chandrika Referring Provider Last Name Naya Referring Provider Speciality Physician Commercial Loan Processor Referred Provider Specialty Podiatry General Notes Chandrika Person 04:01:44 PM >patient needs an appt with Haydee Suarez Brynn 08/09/2024 08:25:18 AM > faxed to [facility] PodiatrHaydee bustamante Brynn 08/09/2024 04:08:49 PM > 09/10/2024 at 08:30am Referral Priority Routine REASON FOR VISIT pain in little toe Problems Problem Type SNOMED Code ICD Code Onset Dates Problem Status W/U Status Risk Notes Problem Paresthesia (64116278) Paresthesia (R20.2) Active confirmed Vital Signs Weight 266.2 lbs 08/08/2024 Blood pressure systolic 120 mm Hg 08/09/19 25 Blood pressure diastolic 24 mm Hg 025 Heart Rate 96 /min 08/08/2024 Height 66.50 in 08/08/2024 BMI 42.32 kg/m2 08/08/2024 Encounters Encounter Location Date Provider Diagnosis [facility] [address] [place] [id number] 08/08/2024 Chandrika Person Paresthesia R20. 2 Assessments Encounter Date Diagnosis (ICD Code) Assessment Notes Treatment Notes Treatment Clinical Notes Section Notes 08/08/2024 Paresthesia (ICD-10 - R20.2) Plan Of Treatment Referrals Referral Date Details 08/08/2024 08/08/2024 Next Appt Details Follow Up: via phone to repo rt test results, Reason: Progress Notes * TAURUS ARMENTAOB:1995 (29 yo F)Acc No.[id number]:08/08/2024 Progress Notes Patient: DIONICIO DAS Provider: LAKHWINDER Wallis :1995 A ge:29 Y S ex:Female Date:08/08/2024 Address:[address] [place], [place] [id number] Subjective: * Chief Complaints: * 1 . [...] Treatment: Value Reference Range V itamin B12 641 299-7270 - pg/mL * Rosaura Fair 08/14/2024 04:5 [...] * Images: Billing Information: * Visit Code: 23843 Office Visit, Est Pt., Level 3. * Procedure Codes: * Electronic signature of LAKHWINDER Lala on 12/24/2024 at 08:49 AM EDT Sign off status: Pending * Provider: LAKHWINDER Wallis Date: 0 08/08/2024 Generated for Paulai tiffany/Shamika/eTransmitting on: 1 08:49 AM EDT History and [...]
--- OUTSIDE RECORDS SUMMARY | 2024-12-24 08:49 | XMS_ITS | Patient Health Record ---
Author Organization [facility] Address [address] [place] [id number] Care Team Providers Care Agricultural Produce Sorter Name Role Phone Matthew Lake Unavailable [phone] Chandrika Person Unavailable [phone] Allergies No Known Allergies Results Component Value Reference Range Notes P-Vitamin B12 Reviewed date:08/14/2024 04:52:54 PM Interpretation:Normal Performing Lab: Notes/Report: Test performed by [facility] [address] [place] [address] , [address], [place] [address] Alphonso Yoo MD, Aircraft Instrument Mechanic CLIA: [id number] Vitamin B12 857 445-6470 pg/mL P-Comprehensive Metabolic Pa quin (CMP) Reviewed date:08/14/2024 04:52:05 PM Interpretation:Normal Performing Lab: Notes/Report: Test performed by [facility] [address] [place] [address] , [address], [place] [address] Alphonso Yoo MD, Aircraft Instrument Mechanic CLIA: [id number] Sodium 140 135-145 mmol/L Potassium 4.9 3.5-5.3 [...] Interpretation:Normal Performing Lab: Notes/Report: Test performed by [facility] [address] [place] [address] , [address], [place] [address] Alphonso Yoo MD, Aircraft Instrument Mechanic CLIA: [id number] TSH reflex to FT4 1.23 0.43-5.25 mU/L Reason For Referral Diagnosis 1 Paresthesia (R20.2) Referral Organization [facility] Referring Provider First Name Chandrika Referring Provider Last Name Naya Referring Provider Speciality Physician Camp Nurse Referred Provider Specialty Podiatry General Notes Chandrika Person 04:01:44 PM >patient needs an appt with Haydee Suarez Brynn 08/09/2024 08:25:18 AM > faxed to [facility] PodiatrHaydee bustamante Brynn 08/09/2024 04:08:49 PM [...] W/U Status Risk Notes Problem Morbid obesity (717366401) Morbid obesity (E66.01) Active confirmed Problem Paresthesia (88534133) Paresthesia (R20.2) Active confirmed Vital Signs Heart Rate 96 /min 08/08/2024 Blood pressure diastolic 24 mm Hg 08/08/2024 Height 66.50 in 08/08/2024 Blood pressure systolic 120 mm Hg 08/08/2024 Weight 266.2 lbs 08/08/2024 BMI 42.32 kg/m2 08/08/2024 Encounters Encounter Location Date Provider Diagnosis [facility] [address] [place] [id number] 08/08/2024 Chandrika Person Paresthesia R 20.2 [facility] [address] [place] [id number] 01/31/2024 Matthew Aleksandra Assessments Encounter Date Diagnosis [...] STEVEN WILSON [employer] [address] [place] [address] [phone] [id number] DIONICIO CHRISTIANSEN Self - patient is the insured Medical (General) History Medical History History ICD Code Allergic Rhinitis Depression Surgical History Surgery Date(Month/Year) [place] Teeth 2010
--- OUTSIDE RECORDS SUMMARY | 2024-12-24 08:50 | XMS_ITS | Clinical Summary ---
Author Organization [facility] Address [address] [place] [address] Care Team Providers Care Warehouse Sorter Name Role Phone Matthew Lake MD Primary Care Provider [phone] Allergies Active Allergy Reactions Criticality Noted Date [...] often do you attend chur ch or latter-day services? Never 06/14/2023 Do you belong to any clubs o r organizations such as gnosticism groups, unions, fraternal or athletic groups, or [...] Recorded Patient Health Questionnaire-2 Score 0 03/07/2023 [facility] Occupat ional [facility] - Occupational Stress Questionnaire Answer Date Recorded [...] in a care home (including now)? No 06/14/2023 [place] Depression Scale Answer Date Recorded [place] Depression Scale Total 0 04/10/2023 The thought [...] drink first t antoinette in the morning (EYE-BINDERY SUPERVISOR) to steady your nerves or to get rid of a hangover? 0 06/14/2023 CAGE Questionnaire Score 0 024 Utilities Answer Date Recorded In the past 12 months has th e [employer], gas, oil, or water [employer] threatened to shut off services in your [...] series) 2021 [facility]-Depression Screening 04/10/2024 04/10/2023, 02/17 [id number] Vaccine ( season) 2024 [facility]-Influenza Vaccine (#1) [...] this topic Medical Devices Implanted Type Area Technician Assistant Device Identifier Shelf Expiration Date Model / Serial / Lot Stent Xochitl 7fr X 7cm - [id number] Implanted:Qty: 1 on 06/15/2023 by Danae Hall, RN at [facility]-[id number] 02/24/2026 [id number] / / [id number] Procedures Procedure Name Priority Date/Time Associated Diagnosis [...] ORDERABLES Final Resu lt Performing Organization Address City/[facility] Co de Phone Number [facility] [address] [place] [address] * Hepatitis C Antibody (08/05/2022 3:14 PM EDT) Hepatitis C Antibody Negative Negative 08/05/2022 7:09 PM EDT [facility] Blood Venous blood specimen / Unknown Venipuncture / Unknown 08/05/2022 3:14 PM EDT 08/05/2022 6:30 PM EDT Result Mary Gonzalez MD LAB BLOOD ORDERABLES Final Resu lt Performing Organization Address City/[facility] Co de Phone Number [facility] [address] [place] [address] * (ABNORMAL) Pap Test (12/15/2021 5:12 PM EDT) Case Report Cytology Case: [id number] Authorizing Provider: Esha Vogt APRN, Collected: 12/15/2021 1712 CNM Ordering Location: Obstetrics & Gynecology Received: 12/17/2021 0945 First Screen: Rosina Julio Pathologist: Erika Briggs MD Specimen: ThinPrep Pap Test, Liquid-Based Cervical/Vaginal, CERVICAL/VAGINAL 12/21/2021 4:18 PM EDT [facility] Interpretation LOW GRADE SQUAMOUS INTRAEPITHELIAL LESION (LSIL)(A) 12/21/2021 4:18 PM EDT [facility] at 1618 EDT Specimen Adequacy Satisfactory for evaluation; endocervical/michael sformation zone component present. Slide scanned and imaged by ThinPrep Imaging System with manual review of all selected sanchez. 12/21/2021 4:18 PM EDT [facility] Cervical cytology is a [...] results is suggested (please call Microbiology at [phone] for results). 12/21/2021 4:18 PM EDT [facility] Menstrual Status Cyclic 12/22/19 4:18 PM EDT [facility] Contraceptive History Not Applicable 12/21/2021 4:18 PM EDT [facility] Screening Type Previous or Suspected Abnormality 12/21/2021 4:18 PM EDT [facility] HPV Testing Requested? Request HPV Testing Regardless of Pap Test Findings 12/21/2021 4:18 PM EDT [facility] Infection History Human Papillomavirus 12/21/2021 4:18 PM EDT [facility] Previous Cancer History No 12/21/2021 4:18 PM EDT [facility] Previous or Suspected Abnormality Previous Abnormal Pap 12/21/2021 4:18 PM EDT [facility] Clinical Information R87.622 - Pap smear abnormality of vagina with LGSIL [ICD-10-CM] 12/21/2021 4:18 PM EDT [facility] Last Menstrual Period 11/26/2021 12/21/2021 4:18 PM EDT [facility] Swab Vaginal and cervical cytologic material / Unknown Non-blood Collection / Unknown 12/15/2021 5:12 PM EDT 12/17/2021 9:45 AM EDT Esha Vogt APRN, CNM LAB CYTOLOGY ORDERA BLES Final Result [facility] [address] [place] [address] from Last 3 Months or Most Recently Relevant to [place] [id number] [employer] Member Subscriber Plan / Payer ( fective 2020-Present) Name:Yancy Magallon Relation to Subscriber:Self Name:Yancy Magallon Payer ID:[id number] (NAIC) Type:Not on file Address: [address] [place] [phone] ANTH Advance Directives * Full Code (Latest Code Status on File) Date Activated Date Inactivated Comments 06/13/2023 5:42 AM 06/16/2023 7:08 PM Question Answer Comments Patient has decision-making capacity? Yes * Full Code Date Activated Date Inactivated Comments 06/09/2023 10:31 AM 06/11/2023 5:37 PM Question Answer Comments Patient has decision-making capacity? Yes Care Teams Warehouse Sorter Relationship Specialty Start Date End Date Matthew Lake MD [facility] [place] [address] PCP - General 08/31/23
--- OUTSIDE RECORDS SUMMARY | 2024-12-24 08:50 | XMS_ITS | Encounter Summary ---
Author Organization Healthcare Address [address] [place] [address] Care Team Providers Care Housekeeper Caregiver Name Role Phone Namita Murdock APRN Primary Care Provider [phone] Chichi Chicas RN Unavailable [phone] Matthew Lake MD Primary Care Provider + [phone] Encounter Details Date Type Department Care Team (Late st Contact Info) Description 10/11/2022 Outside Procedure External Location [address] [place] [address] Pranav Gonzalez MD [address] [place] [address] Social History Tobacco Use Types [...] often do you attend chur ch or nondenominational services? More than 4 times per year [...] Recorded Patient Health Questionnaire-2 Score 0 12/01/2020 [facility] - Occupational Stress Questionnaire Answer Date [...] a fpc (including now)? No 11/10/2020 Comments Yes Sex [...] AM EDT Narrative 10/11/2022 3:12 [place] [address] Name: YANCY ARMENTA Exam Date: 10/11/2022 : [...] Thank you for referring YANCY ARMENTA to [facility]. Legally authenticated by DANIELA CEE 2022-10-11 11:05:13 Procedure Note Provider, Generic [place] - 10/11/2022 [place] [address] Name: YANCY ARMENTA Exam Date: 10/11/2022 : [...] Thank you for referring YANCY ARMENTA to [facility]. Legally authenticated by DANIELA CEE 2022-10-11 11:05:13 [...] documented as of this encounter Care Teams Housekeeper Caregiver Relationship Specialty Start Date End Date Namita Murdokc APRN [address] [place] [address] PCP - General Family Medicine 03/02/22 08/30/23 Matthew Lake MD [facility] [address] [address] PCP - General 08/31/23 Chichi Chicas RN [address] [phone] Quality Assurance Coach Internal Medicine 01/11/23 11/29/23 documented as of this encounter
--- OUTSIDE RECORDS SUMMARY | 2024-12-24 08:50 | XMS_ITS | Encounter Summary ---
Author Organization Healthcare Address [address] [place] [address] Care Team Providers Care Machine Joint Cutter Name Role Phone Regina Sorensen MD Primary Care Provider [phone] Namita Murdock APRN Primary Care Provider [phone] Chichi Chicas RN Unavailable [phone] Matthew Lake MD Primary Care Provider + [phone] Encounter Details Date Type Department Care Team (Late st Contact Info) Description 01/31/2022 Outside Procedure External Location [address] [place] [address] Provider, Jocelyne Mendez Social History Tobacco Use [...] How often do you attend chur or caodaism services? More than 4 times per year 11/10/2020 Do you belong to any clubs o r organizations such as mormon groups, unions, fraternal or athletic groups, or [...] Recorded Patient Health Questionnaire-2 Score 0 12/01/2020 [facility] Occupat ional Health - Occupational [...] phy 01/31/2022 12:5 3 PM EST Generic [place] Provider IMG CT PROCEDURES Fi nal Result documented in this encounter Visit Diagnoses Not on filedocumented in this encounter Care Teams Machine Joint Cutter Relationship Specialty Start Date End Date Regina Sorensen MD [address] [place] [address] [place] [address] PCP - General 07/31/20 03/01/22 Namita Murdock APRN [address] [place] [address] PCP - General Family Medicine 03/02/22 08/30/23 Matthew Lake MD [address] [facility] [address] [place] [address] PCP - General 08/31/23 Chichi Chicas RN [address] [address] Watermelon Harvesting Supervisor Internal Medicine 01/11/23 11/29/23 documented as of this encounter
[2024-12-24 09:17] LABS: Glucose 1 Hour 92 mg/dL (74-100); Glucose,Fasting 92 mg/dl (74-100)
== END 2024-12-24 23:59 | disposition home or self-care (01) ==
LOC: LAB 08:37
PROVIDERS: PCP Family Medicine; Visit Provider Obstetrics & Gynecology
DX: O09.291 Supervision of pregnancy with other poor reproductive or obstetric history, first trimester (principal); Z86.32 Personal history of gestational diabetes; Z3A.00 Weeks of gestation of pregnancy not specified
CPT/HCPCS: 36415; 82951

== ENCOUNTER 2025-02-20 13:52 | Outpatient (CLI) | payer BC, SELFPAY ==
--- NOTE | 2025-02-20 14:00 | US_ITS ---
PROCEDURE: US OB /MATERNAL DETAIL CLINICAL INDICATION: 20 week anatomy COMPARISON: FINDINGS: Transabdominal sonographic images of the pelvis were obtained. From her established due date she is 20 weeks 1 day. Single viable intrauterine gestation. Cephalic position. Placenta: Anteriorplacenta grade 1. There is an average amount of fluid. The cervix appears satisfactory. Closed and measuring 3.25 cm in length. Complete survey performed and was unremarkable on the submitted images as in PACS. No discrete anomalies identified on survey imaging by technologist. Active fetus. Three-vessel cord with satisfactory umbilical cord insertion. 4- chamber heart noted. Situs, aortic arch, LVOT, RVOT, three-vessel view appear normal. Survey of brain & ventricles Unremarkable. Cerebellum, thalamus, choroid plexus, cisterna magna appear normal. Face and neck survey unremarkable. Profile, nasion, lips and nose appeared normal. Diaphragm and chest views unremarkable. Abdomen: Both kidneys noted and unremarkable. Stomach and bladder noted and satisfactory. Spine: Survey of the spine satisfactory with no anomalies identified nor imaged. Cervical, thoracic, lower spine appear normal. Both arms and legs noted. Amniotic Fluid: Adequate. MVP 3.51 cm Measurements: Average ultrasound age 20weeks 0 days. Estimated due date by ultrasound age 0407/10/2025. Estimated weight 322g BPD = 19weeks 6days HC = 19weeks 5days AC = 19weeks 6days FL = 20weeks 2days Growth Percentile= 34 Heart Rate = 156bpm Cerebellum = 19weeks 1day Humerus = 20weeks 2days HC/AC is 1.18 FL/BPD is 0.72 FL/AC is 0.23 IMPRESSION: 1. Viable fetus in the cephalic presentation with an anterior placenta grade 1. 2. The fluid is within normal limits with MVP 3.51 cm. 3. Anatomical scan appears normal. 4. biometry is consistent with the dates. Dictated by: Kali Chandra MD 02/20/2025 15:03 Kali Chandra MD in [facility] 02/20/2025 15:03
== END 2025-02-20 23:59 | disposition home or self-care (01) ==
LOC: RAD 13:52
PROVIDERS: PCP Family Medicine; Visit Provider Obstetrics & Gynecology
DX: Z34.82 Encounter for supervision of other normal pregnancy, second trimester (principal); Z3A.20 20 weeks gestation of pregnancy
CPT/HCPCS: 76811